=== PATIENT | male | born 1945 | race Caucasian/White ===

== ENCOUNTER 2016-09-26 05:40 | Inpatient (IN) | payer OTHER ==
[2016-09-17 11:19] VITALS: BMI 28.5
[2016-09-26] MEDS ORDERED: NITROGLYCERIN 50 MG/10 ML VIAL IVPB ONE (06:53)
[2016-09-26] MEDS ORDERED: PROPOFOL 20 ML ONE ×3 (07:11→10:43)
[2016-09-26] MEDS ORDERED: PHENYLEPHRINE HCL 10 MG/1 ML SINGLE DOSE VIAL ONE ×2 (07:11→09:11)
[2016-09-26] MEDS ORDERED: ROCURONIUM BROMIDE 50 MG/5 ML VIAL ONE ×3 (07:11→13:05)
[2016-09-26] MEDS ORDERED: ceFAZolin SODIUM 1 GM VIAL ONE ×2 (07:19→16:41)
--- NOTE | 2016-09-26 07:33 | HP ---
History & Physical Update - History History: No Change (Complete HPI is in patient's paper chart by Dr. Luke Ace on 09/17/16.) - Physical Physical: No Change - Assessment Assessment: No Change - Plan Plan: No Change (Here today for elective repair of his AAA (open repair). This is my first time meeting the patient. I informed him that I will be assisting Dr. Bello for the procedure today. Patient is fine with it.)
--- NOTE | 2016-09-26 07:39 | HP ---
Admitting History and Physical - Primary Care Physician PCP: Luke Ace - Admission Chief Complaint: Abdomian aortic aneurysm History of Present Illness: Here today for elective repair of his abdominal aortic aneurysm (open repair planned). History Source: Patient Limitations to Obtaining History: No Limitations - Past Medical History Cardiovascular: Yes: CAD Pulmonary: Yes: COPD Gastrointestinal: Yes: Gastritis Renal/: Yes: Other (Satge 2 CKD, essential HTN) Additional Past Medical History: Hyperlipidemia, Left ankle fracture - Past Surgical History Past Surgical History: Yes: AAA Repair, Amputation Additional Past Surgical History: Right common illiac stent. Traumatic severance of fingers. - Smoking History Smoking history: Current every day smoker Have you smoked in the past 12 months: Yes Aproximately how many cigarettes per day: 2 - Alcohol/Substance Use Hx Alcohol Use: No History of Substance Use: reports: None - Social History Usual Living Arrangement: Yes: With Spouse ADL: Independent History of Recent Travel: No <Conrad Warner - Last Filed: 09/26/16 07:33> Home Medications <Conrad Warner - Last Filed: 09/26/16 07:33> <Alvarez Bello - Last Filed: 09/26/16 16:29> - Allergies Allergies/Adverse Reactions: Allergies Allergy/AdvReac Type Severity Reaction Status Date / Time No Known Drug Allergies Allergy Verified 09/26/16 07:44 BEES Allergy Uncoded 09/26/16 07:44 - Home Medications Home Medications: Ambulatory Orders Clopidogrel Bisulfate [Plavix -] 75 mg PO DAILY #30 tablet 04/07/12 Levothyroxine [Synthroid -] 137 mcg PO ASDIR #0 tablet 04/07/12 Levothyroxine [Synthroid -] 150 mcg PO DAILY #30 tablet 04/07/12 Nebivolol HCl [Bystolic] 5 mg NR DAILY #30 tablet 04/07/12 Lansoprazole [Prevacid] 30 mg PO PRN PRN 04/22/12 Rosuvastatin Calcium [Crestor] 20 mg PO DAILY 04/22/12 Aspirin [ASA -] 81 mg PO DAILY 09/17/16 Review of Systems - Review of Systems Constitutional: reports: No Symptoms Eyes: reports: No Symptoms HENT: reports: No Symptoms Neck: reports: No Symptoms Cardiovascular: reports: No Symptoms Respiratory: reports: No Symptoms Gastrointestinal: reports: No Symptoms Genitourinary: reports: No Symptoms Breasts: reports: No Symptoms Reported Musculoskeletal: reports: No Symptoms Integumentary: reports: No Symptoms Neurological: reports: No Symptoms Endocrine: reports: No Symptoms Hematology/Lymphatic: reports: No Symptoms Psychiatric: reports: No Symptoms <Conrad Warner P - Last Filed: 09/26/16 07:33> Physical Examination Vital Signs: Vital Signs Temperature 97.9 F 09/26/16 07:15 Pulse Rate 61 09/26/16 07:15 Respiratory Rate 18 09/26/16 07:15 Blood Pressure 130/56 09/26/16 07:15 O2 Sat by Pulse Oximetry (%) 94 L 09/26/16 07:21 Constitutional: Yes: Well Nourished, No Distress, Calm Eyes: Yes: WNL, Conjunctiva Clear, EOM Intact HENT: Yes: WNL, Atraumatic, Normocephalic Neck: Yes: WNL, Supple, Trachea Midline Cardiovascular: Yes: WNL, Regular Rate and Rhythm Respiratory: Yes: WNL, Regular, CTA Bilaterally Gastrointestinal: Yes: WNL, Normal Bowel Sounds, Soft ...Rectal Exam: Yes: WNL Renal/: Yes: WNL Musculoskeletal: Yes: WNL Extremities: Yes: WNL Edema: No Peripheral Pulses WNL: Yes Integumentary: Yes: WNL Neurological: Yes: WNL, Alert, Oriented ...Motor Strength: WNL Psychiatric: Yes: WNL, Alert, Oriented <Conrad Warner P - Last Filed: 09/26/16 07:33> Vital Signs: Vital Signs Temperature 97.9 F 09/26/16 07:15 Pulse Rate 61 09/26/16 07:15 Respiratory Rate 18 09/26/16 07:15 Blood Pressure 130/56 09/26/16 07:15 O2 Sat by Pulse Oximetry (%) 94 L 09/26/16 07:21 Labs: CBC, BMP 09/26/16 14:15 09/26/16 14:15 <Alvarez Bello - Last Filed: 09/26/16 16:29> Problem List - Problems (1) Abdominal aortic aneurysm Assessment/Plan: Going for open repair today Pre-op antibiotics ordered Type and screen 4 PRBC on hold for OR Cell Saver confirmed Code(s): I71.4 - ABDOMINAL AORTIC ANEURYSM, WITHOUT RUPTURE (2) Chronic kidney disease, stage 2 (mild) Code(s): N18.2 - CHRONIC KIDNEY DISEASE, STAGE 2 (MILD) (3) COPD (chronic obstructive pulmonary disease) Code(s): J44.9 - CHRONIC OBSTRUCTIVE PULMONARY DISEASE, UNSPECIFIED (4) Essential (primary) hypertension Code(s): I10 - ESSENTIAL (PRIMARY) HYPERTENSION <Conrad Warner - Last Filed: 09/26/16 07:33> Assessment/Plan 71 year old man with 6 cm AAA arising at level of renal arteries. 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 Evaluation for fenestrated endograft but not a candidate due to iliac occlusion. Plan for open repair with left femoral bypass. <Alvarez Bello - Last Filed: 09/26/16 16:29>
[2016-09-26] MEDS ORDERED: NITROPRUSSIDE SODIUM 50,000 MCG in SODIUM CHLORIDE 248 ML IVPB SCH (07:45)
[2016-09-26] MEDS ORDERED: CEFAZOLIN 2 GM in DEXTROSE 5%-WATER - 100 ML IVPB ONE (07:54)
[2016-09-26] MEDS ORDERED: ePHEDrine SULFATE 50 MG/1 ML AMPULE ONE (09:03)
[2016-09-26] MEDS ORDERED: ceFAZolin SODIUM 1 GM VIAL IVPB ONE ×2 (09:18)
[2016-09-26] MEDS ORDERED: DESFLURANE GAS 240 ML BOTTLE IH ONE (09:38)
[2016-09-26] MEDS ORDERED: HEPARIN NA (PORCINE) 5,000 UNITS/ML 1ML VIAL ONE (10:07)
[2016-09-26] MEDS ORDERED: HYDROmorphone HCL/PF 1 MG/ML VIAL (FOR PYXIS CHARGING ONLY) ONE ×3 (10:28→13:11)
[2016-09-26] MEDS ORDERED: METOPROLOL TARTRATE 5 MG/5 ML VIAL ONE (10:41)
[2016-09-26] MEDS ORDERED: LABETALOL HCL 5 MG/1 ML (100MG/20 ML VIAL) ONE (11:25)
[2016-09-26] MEDS ORDERED: NOREPINEPHRINE BITARTRATE 4 MG/4 ML ML IV ONE ×2 (12:33→21:06)
[2016-09-26 14:24] LABS: ARTERIAL BLOOD GAS BASE EXCESS -13.9 meq/l (-2-2); ARTERIAL BLOOD GAS HCO3 20.5 meq/L (22-26)
[2016-09-26] MEDS ORDERED: CALCIUM CHLORIDE 1 GM/10 ML *DISP.SYRIN ONE ×2 (14:24→19:31)
[2016-09-26 14:28] LABS: LPM/O2% 100%; PT. ON O2? YES; TYPE OF O2 MEC.VENT
[2016-09-26] MEDS ORDERED: SODIUM BICARBONATE 8.4% - 50 ML ONE ×2 (14:30→19:31)
[2016-09-26] MEDS ORDERED: DEXAMETHASONE SOD PHOSPHATE 4 MG/1 ML VIAL ONE (14:41)
[2016-09-26] MEDS ORDERED: PROPOFOL 100 ML ONE (14:50)
[2016-09-26] MEDS ORDERED: PROPOFOL 1000 MG/100 ML VIAL IVPB ONE (15:10)
[2016-09-26] MEDS ORDERED: LEVOTHYROXINE NA 150 MCG TABLET PO SCH (15:15)
[2016-09-26 15:21] LABS: MCH 30.2 pg (25.7-33.7); MCHC 31.7 g/dl (32.0-35.9); MEAN CELL VOLUME 95.3 fl (80-96); MEAN PLT VOLUME 10.4 fl (7.5-11.1); PLATELET COUNT 107 K/MM3 (134-434); RDW 14.1 % (11.9-15.9); WHITE BLOOD COUNT 24.8 K/mm3 (4.0-10.0)
[2016-09-26] MEDS ORDERED: LACTATED RINGERS SOLUTION 1,000 ML IV SCH (15:30)
[2016-09-26 15:43] LABS: ALBUMIN 1.9 g/dl (3.4-5.0); BILIRUBIN,TOTAL 0.1 mg/dL (0.2-1.0); COCKROFT - GAULT 46.65; CREATININE 1.9 mg/dL (0.7-1.3); TOT PROT 4.3 g/dl (6.4-8.2)
[2016-09-26 16:06] LABS: METAMYELOCYTE 1 % (0-2); PLATELET ESTIMATE DECREASED (NORMAL)
--- NOTE | 2016-09-26 16:26 | OP ---
Operative Note - Note: Operative Date: 09/26/16 Pre-Operative Diagnosis: Abdominal aortic aneurysm, left iliac artery occlusion Operation: Open repairir of juxtarenal abdominal aortic aneurysm, left femoral bypass, right iliac bypass. Findings: Juxtarenal AAA 6 cm. Small right renal artery. Implants: 20 mm x 10 mm Hemashield graft Post-Operative Diagnosis: Same as Pre-op Surgeon: Alvarez Bello Rehabilitation Director: Tavo Parks Anesthesiologist/SOFTWARE BUSINESS ANALYST: Aroldo Maki Anesthesia: General Specimens Removed: Aneurysm contents Estimated Blood Loss (mls): 4,000 Blood Volume Replaced (mls): 5,000 Operative Report Dictated: Yes
[2016-09-26 16:30] LABS: ARTERIAL BLD GAS O2 SATURATION 90.8 % (90-98.9); ARTERIAL BLOOD GAS BASE EXCESS -14.4 meq/l (-2-2); ARTERIAL BLOOD GAS HCO3 20.2 meq/L (22-26); ARTERIAL BLOOD GAS PO2 81.1 mmHg (70-100)
[2016-09-26 16:33] LABS: ARTERIAL BLOOD GAS pH 7.01 (7.35-7.45)
[2016-09-26 16:34] LABS: ART PUNCT SITE ARTERIAL LINE; LPM/O2% 60%; MECH. VENT. YES; PT. ON O2? YES; TYPE OF O2 MEC.VENT; VENT RATE 12; VT/PRESS 500
--- NOTE | 2016-09-26 16:53 | CON.CARD ---
Consult Consult Specialty:: Cardiology Referred by:: Luke Ace MD Reason for Consultation:: Labile hemodynamics post-op - History of Present Illness Chief Complaint: Labile BP post-op History of Present Illness: 71 yo WM h/o 6 cm AAA and left iliac artery occlusion unamenable to endovascular repair, CAD s/p NAIF LAD, chol, tobacco abuse, CKD, HTN, COPD, underwent open repair of juxtarenal abdominal aortic aneurysm, left femoral bypass, right iliac bypass, both during and post-op, patient experienced extremely labile blood pressures alternating from hypertension to hypotension, received 2 U pRBC and cell saver blood, currently mechanically ventilated, ABG shows significant respiratory acidosis, hemodynamics improving with increased ventilation rate. - History Source History Provided By: Medical Record Limitations to Obtaining History: Clinical Condition - Past Medical History Cardio/Vascular: Yes: CAD Pulmonary: Yes: COPD Gastrointestinal: Yes: Gastritis Renal/: Yes: Other (Satge 2 CKD, essential HTN) - Past Surgical History Past Surgical History: Yes: AAA Repair, Amputation - Alcohol/Substance Use Hx Alcohol Use: No History of Substance Use: reports: None - Smoking History Smoking history: Current every day smoker Have you smoked in the past 12 months: Yes Aproximately how many cigarettes per day: 2 - Social History ADL: Independent History of Recent Travel: No Home Medications - Allergies Allergies/Adverse Reactions: Allergies Allergy/AdvReac Type Severity Reaction Status Date / Time No Known Drug Allergies Allergy Verified 09/26/16 07:44 BEES Allergy Uncoded 09/26/16 07:44 - Home Medications Home Medications: Ambulatory Orders Clopidogrel Bisulfate [Plavix -] 75 mg PO DAILY #30 tablet 04/07/12 Levothyroxine [Synthroid -] 137 mcg PO ASDIR #0 tablet 04/07/12 Levothyroxine [Synthroid -] 150 mcg PO DAILY #30 tablet 04/07/12 Nebivolol HCl [Bystolic] 5 mg NR DAILY #30 tablet 04/07/12 Lansoprazole [Prevacid] 30 mg PO PRN PRN 04/22/12 Rosuvastatin Calcium [Crestor] 20 mg PO DAILY 04/22/12 Aspirin [ASA -] 81 mg PO DAILY 09/17/16 Review of Systems Unable to obtain ROS, reason: Sedated and intubated Vital Signs: Vital Signs Temperature 97.9 F 09/26/16 07:15 Pulse Rate 61 09/26/16 07:15 Respiratory Rate 12 09/26/16 16:43 Blood Pressure 130/56 09/26/16 07:15 O2 Sat by Pulse Oximetry (%) 94 L 09/26/16 07:21 Respiratory: Yes: Diminished, Intubated, Mechanically Ventilated, Rhonchi Gastrointestinal: Yes: Soft, Hypoactive Bowel Sounds Cardiovascular: Yes: Regular Rate and Rhythm JVD: No Carotid Bruit: No Heart Sounds: Yes: S1, S2 Murmur: Yes: Systolic Murmur, Grade 1 Edema: No - Other Data Labs, Other Data: CBC, BMP 09/26/16 14:15 09/26/16 14:15 NSR @ 62 RBBB similar to previous Echo: Report Reviewed Imaging - Results Chest X-ray: Report Reviewed (COPD) Problem List - Problems (1) Abdominal aortic aneurysm Code(s): I71.4 - ABDOMINAL AORTIC ANEURYSM, WITHOUT RUPTURE Qualifiers: Presence of rupture: without rupture Qualified Code(s): I71.4 - Abdominal aortic aneurysm, without rupture (2) COPD (chronic obstructive pulmonary disease) Code(s): J44.9 - CHRONIC OBSTRUCTIVE PULMONARY DISEASE, UNSPECIFIED Qualifiers : COPD type: unspecified COPD Qualified Code(s): J44.9 - Chronic obstructive pulmonary disease, unspecified (3) Chronic kidney disease, stage 2 (mild) Code(s): N18.2 - CHRONIC KIDNEY DISEASE, STAGE 2 (MILD) (4) Acute hypercapnic respiratory failure Code(s): J96.02 - ACUTE RESPIRATORY FAILURE WITH HYPERCAPNIA (5) Coronary artery disease Code(s): I25.10 - ATHSCL HEART DISEASE OF [place] CORONARY ARTERY W/O ANG PCTRS Qualifiers: Coronary Disease-Associated Artery/Lesion type: [place] artery [place] vs. transplanted heart: [place] heart Associated angina: without angina Qualified Code(s): I25.10 - Atherosclerotic heart disease of [place] coronary artery without angina pectoris (6) Status post insertion of drug eluting coronary artery stent Code(s): Z95.5 - PRESENCE OF CORONARY ANGIOPLASTY IMPLANT AND GRAFT (7) Hyperlipidemia LDL goal <100 Code(s): E78.5 - HYPERLIPIDEMIA, UNSPECIFIED (8) Hypothyroidism Code(s): E03.9 - HYPOTHYROIDISM, UNSPECIFIED Qualifiers: Hypothyroidism type: unspecified Qualified Code(s): E03.9 - Hypothyroidism, unspecified (9) S/P aortic aneurysm repair Code(s): Z98.890 - OTHER SPECIFIED POSTPROCEDURAL STATES Z86.79 - PERSONAL HISTORY OF OTHER DISEASES OF THE CIRCULATORY SYSTEM Assessment/Plan 08/16/2016 Echo: Normal LV size and fxn, mild cLVH, mild MR 08/21/2016 Regadenoson Myoview: Small mild inferior ischemia, LVEF 80% 1. Hypercapneic respiratory failure post-op 2. s/p open repair of 6 cm juxtarenal abdominal aortic aneurysm, left femoral bypass, right iliac bypass. 3. CAD s/p NAIF LAD, angina pectoris 4. COPD 5. CKD 6. HTN 7. Hyperlipidemia P:1. Adjust vent rate per ABG 2. Cycle cardiac enzymes, monitor renal function and output, monitor Hgb post transfusion 3. Echocardiogram to assess ventricular and valve fxn 4. Volume resuscitation given CVP 6 mmHg 5. ASA 81 qd, Plavix 75 qd, GI and DVT prophylaxis 5. Thank you for consultative opportunity
[2016-09-26] MEDS ORDERED: VASOPRESSIN 20 UNITS/ML VIAL IV ONE ×2 (16:59→17:01)
--- NOTE | 2016-09-26 17:58 | PN ---
Progress Note (short form) - Note Progress Note: PULMONARY CONSULTATION DICTATED 09/26/16 IMP ACUTE HYPERCAPNEIC RESPIRATORY FAILURE S/P OPEN AAA REPAIR S/P OPEN AAA,LEFT FEMORAL BYPASS,R ILIAC BYPASS LABILE BP HYPOTENSION ALT WITH HTN COPD ASHD S/P NAIF LAD DM CKD PLAN VENT SUPPORT ON AC ADJUST SETTING PER ABG IVF MONITOR URINE OUTPUT STRICT I+OS F/U LYTES,RENAL FUNCTION,H+H F/U CHEST X-RAY DVT PROPHYLAXIS ECHO CARDIAC ENZYMES DR ALLISON Problem List - Problems (1) Abdominal aortic aneurysm Code(s): I71.4 - ABDOMINAL AORTIC ANEURYSM, WITHOUT RUPTURE Qualifiers: Presence of rupture: without rupture Qualified Code(s): I71.4 - Abdominal aortic aneurysm, without rupture (2) Acute hypercapnic respiratory failure Code(s): J96.02 - ACUTE RESPIRATORY FAILURE WITH HYPERCAPNIA (3) COPD (chronic obstructive pulmonary disease) Code(s): J44.9 - CHRONIC OBSTRUCTIVE PULMONARY DISEASE, UNSPECIFIED Qualifiers : COPD type: unspecified COPD Qualified Code(s): J44.9 - Chronic obstructive pulmonary disease, unspecified (4) Chronic kidney disease, stage 2 (mild) Code(s): N18.2 - CHRONIC KIDNEY DISEASE, STAGE 2 (MILD) (5) Coronary artery disease Code(s): I25.10 - ATHSCL HEART DISEASE OF [place] CORONARY ARTERY W/O ANG PCTRS Qualifiers: Coronary Disease-Associated Artery/Lesion type: [place] artery [place] vs. transplanted heart: [place] heart Associated angina: without angina Qualified Code(s): I25.10 - Atherosclerotic heart disease of [place] coronary artery without angina pectoris (6) Essential (primary) hypertension Code(s): I10 - ESSENTIAL (PRIMARY) HYPERTENSION (7) Labile blood pressure Code(s): R09.89 - OTH SYMPTOMS AND SIGNS INVOLVING THE CIRC AND RESP SYSTEMS (8) Hypothyroidism Code(s): E03.9 - HYPOTHYROIDISM, UNSPECIFIED Qualifiers: Hypothyroidism type: unspecified Qualified Code(s): E03.9 - Hypothyroidism, unspecified (9) S/P aortic aneurysm repair Code(s): Z98.890 - OTHER SPECIFIED POSTPROCEDURAL STATES Z86.79 - PERSONAL HISTORY OF OTHER DISEASES OF THE CIRCULATORY SYSTEM (10) Status post insertion of drug eluting coronary artery stent Code(s): Z95.5 - PRESENCE OF CORONARY ANGIOPLASTY IMPLANT AND GRAFT
[2016-09-26 18:00] LABS: ARTERIAL BLD GAS O2 SATURATION 96.2 % (90-98.9)
[2016-09-26] MEDS ORDERED: CEFAZOLIN 2 GM/D5W 50 ML IVPB SCH (18:00)
[2016-09-26 18:02] LABS: ART PUNCT SITE ARTERIAL LINE; LPM/O2% 60%; MECH. VENT. YES; PT. ON O2? YES; TYPE OF O2 MEC.VENT
[2016-09-26 18:03] LABS: ARTERIAL BLOOD GAS pH 7.09 (7.35-7.45); VENT RATE 20; VT/PRESS 550
[2016-09-26] MEDS ORDERED: HYDROmorphone HCL CARPU-JECT 1 MG/1 ML DISP.SYRIN ONE (18:32)
--- NOTE | 2016-09-26 18:46 | PN ---
Progress Note (short form) - Note Progress Note: Anesthesiology Procedure Note Arterial line placement: The left wrist was prepped with chloraprep, a strong pulse was palpated, lidocaine 1% was injected for skin analgesia. Two attempts at canulating radial artery failed. Ultrasound was used to locate artery. left radial artery canulated using Seldinger technique, , waveform adequate, no comprise to blood flow noted.
[2016-09-26 18:48] LABS: MCHC 31.8 g/dl (32.0-35.9); MEAN CELL VOLUME 94.2 fl (80-96); MEAN PLT VOLUME 9.5 fl (7.5-11.1); PLATELET COUNT 95 K/MM3 (134-434); RDW 14.6 % (11.9-15.9); WHITE BLOOD COUNT 23.8 K/mm3 (4.0-10.0)
--- NOTE | 2016-09-26 18:58 | PROC ---
Central Line Insertion Indication: CVP Monitoring, Vasopressor Risks and Benefits Explained: Yes Consent on Chart: Yes Central Line: Triple Lumen Catheter Anesthesia: other (general anesthesia) Sterile Technique: Yes Ultrasound Guided Assistance: Yes Position: Right Internal Jugular Post Insertion: Yes: Bilateral Breath Sounds, Bilateral Chest Expansion, Chest X-Ray Ordered (in PACU post op) Sterile Dressing Applied: Yes
[2016-09-26] MEDS ORDERED: PROPOFOL 100 ML IVPB SCH (19:00)
[2016-09-26 19:07] LABS: INR 1.28 (0.82-1.09); PROTHROMBIN TIME (PATIENT) 14.2 SEC (9.98-11.88)
[2016-09-26 19:23] LABS: COCKROFT - GAULT 44.31
[2016-09-26 19:25] LABS: ARTERIAL BLOOD GAS BASE EXCESS -14.3 meq/l (-2-2); ARTERIAL BLOOD GAS HCO3 16.9 meq/L (22-26); ARTERIAL BLOOD GAS PO2 89.7 mmHg (70-100); ARTERIAL BLOOD GAS pH 7.09 (7.35-7.45)
[2016-09-26 19:27] LABS: ART PUNCT SITE ARTERIAL LINE; LPM/O2% 60; PT. ON O2? yes; TYPE OF O2 MEC.VENT; VENT RATE 24; VT/PRESS 500
[2016-09-26] MEDS ORDERED: DEXTROSE 50%-WATER 50 ML DISP.SYRIN ONE (19:33)
[2016-09-26] MEDS ORDERED: INSULIN REGULAR HUMAN 100 UNITS/ML *VIAL ONE (19:34)
[2016-09-26] MEDS ORDERED: DEXTROSE 5%-WATER - 1,000 ML with SODIUM BICARBONATE 8.4% - 150 MEQ IV SCH (19:45)
[2016-09-26 19:52] LABS: MECH. VENT. YES
[2016-09-26 20:44] LABS: ARTERIAL BLD GAS O2 SATURATION 96.2 % (90-98.9); ARTERIAL BLOOD GAS PO2 95.3 mmHg (70-100)
[2016-09-26 20:45] LABS: ALLENS TEST POSITIVE; ART PUNCT SITE ARTERIAL LINE; ARTERIAL BLOOD GAS HCO3 13.4 meq/L (22-26); ARTERIAL BLOOD GAS pH 7.11 (7.35-7.45); LPM/O2% 60%; MECH. VENT. YES; PT. ON O2? YES; TYPE OF O2 MECH VENT; VENT RATE 26; VT/PRESS 500
[2016-09-26] MEDS ORDERED: VASOPRESSIN 40 UNITS in SODIUM CHLORIDE 98 ML IVPB SCH (21:00)
[2016-09-26] MEDS ORDERED: SODIUM CHLORIDE 1,000 ML IV STA ×2 (21:07→22:15)
--- NOTE | 2016-09-26 21:07 | CONS ---
DATE OF CONSULTATION: 09/26/2016 REFERRING PHYSICIAN: Alvarez Bello MD The patient is a 71-year-old white male known to me from previous office visit, with advanced COPD, long-standing history of tobacco use, currently still smoking approximately 1 pack per day, history of chronic kidney disease stage 2, hypertension, history of ASHD, status post drug-eluting stent in LAD, hypercholesterolemia, history of abdominal aortic aneurysm, history of admission in [facility] for repair of abdominal aortic aneurysm. The patient underwent an open repair with juxtarenal abdominal aortic aneurysm, left femoral bypass, right iliac bypass. Intraoperatively and postoperatively, the patient experienced extremely labile high blood pressure severe hypertension to hypotension. In the OR, he received 2 units of packed red blood cells as well as Cell Saver blood. He was transferred to the recovery room with the above. In the recovery room, his blood pressure remained initially labile. He was initially started on IV fluid, started on nitroglycerin. The patient had a blood gas drawn, which revealed significant mixed respiratory as well as metabolic acidosis, with a pH of 7.0. Again, the patient has a history of tobacco use and currently still smokes. He is retired. 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 There is no history of recent travel. There is no history of DVT or PE in the past. Past medical history again includes COPD, ASHD, status post drug-eluting stent in the LAD, hypertension, diabetes mellitus, stage 2 chronic kidney disease, history of AAA repair, amputation. REVIEW OF SYSTEMS: Unable to obtain at this time. Current medications include normal saline and . PHYSICAL EXAMINATION: General: The patient is a well-developed well-nourished male, sedated, on vent support, assist control of 20, tidal volume of 515, FiO2 of 60%. Blood pressure 143/75. Respiratory rate is 20. O2 saturation is 99%. HEENT: Normocephalic, atraumatic. Neck: Supple. Heart: Regular. Normal S1, S2. Chest: Clear. Abdomen: Bandaged. Extremities: Cool but no cyanosis or edema. LABORATORIES: Potassium is 5.7, BUN 18, creatinine 1.9, protein 4.3, albumin 1.9. INR is 1.12. Blood gas, initial: pH 7.00, pCO2 of 87, pO2 of 354, bicarbonate 20, saturation 99 (that was 100% oxygen, unknown vent settings). Repeat on tidal volume of 500, A/C of 12, 60%, pH 7.01, pCO2 of 83, a pO2 of 81, a bicarbonate of 90, and again was on A/C of 12, 60%, tidal volume 500. WBC is 24.8, hemoglobin 14.6, hematocrit 46.1, with platelet count of 107,000. Chest x-ray revealed endotracheal tube 5 to 6 cm above the level of the tracheal bifurcation; no infiltrates and no effusions. IMPRESSION: 1. Acute hypercapnic respiratory failure, status post open abdominal aortic aneurysm repair. 2. Status post open repair of 6-cm juxtarenal abdominal aortic aneurysm, left femoral bypass, and right iliac bypass. 3. Labile hypotension postoperatively. 4. Arteriosclerotic heart disease, status post drug-eluting stent to left anterior descending artery. 5. Advanced chronic obstructive pulmonary disease. 6. Mixed metabolic respiratory acidosis. 7. Chronic kidney disease. PLAN: Vent support on assist control mode; change tidal volume to 550, respiratory rate of 20, FiO2 60%. Repeat ABG and can then make adjustments accordingly. IV fluids. Monitor blood pressures. Strictly monitor urine output. Monitor hemoglobin and hematocrit. Follow up chest x-ray. Obtain echocardiogram. DVT prophylaxis. JEN ALLISON M.D. ANABEL/[id number]
[2016-09-26] MEDS ORDERED: CALCIUM CHLORIDE 1 GM/10 ML *DISP.SYRIN IVPB ONE (21:10)
[2016-09-26] MEDS ORDERED: INSULIN REGULAR HUMAN 100 UNITS/ML *VIAL IVPUSH ONE (21:11)
[2016-09-26] MEDS ORDERED: DEXTROSE 50%-WATER 50 ML DISP.SYRIN IVPUSH ONE (21:13)
[2016-09-26] MEDS ORDERED: FENTANYL INJECTION 500 MCG in DEXTROSE 5%-WATER - 90 ML IJ SCH (21:15)
[2016-09-26] MEDS ORDERED: NOREPINEPHRINE BITARTRATE 8,000 MCG in DEXTROSE 5%-WATER - 492 ML IV SCH (21:15)
[2016-09-26] MEDS ORDERED: NITROGLYCERIN 25MG/D5W 250ML 250 ML IVPB SCH (21:15)
[2016-09-26 21:50] LABS: CALCIUM 8.1 mg/dL (8.5-10.1); COCKROFT - GAULT 40.29; CREATININE 2.2 mg/dL (0.7-1.3)
[2016-09-26 21:53] LABS: ALLENS TEST POSITIVE; ART PUNCT SITE ARTERIAL LINE; ARTERIAL BLD GAS O2 SATURATION 97.1 % (90-98.9); ARTERIAL BLOOD GAS BASE EXCESS -10.4 meq/l (-2-2); ARTERIAL BLOOD GAS PO2 96.7 mmHg (70-100); LPM/O2% 60%; PT. ON O2? YES; TYPE OF O2 MECH VENT
[2016-09-26 21:54] LABS: ARTERIAL BLOOD GAS HCO3 18.9 meq/L (22-26); ARTERIAL BLOOD GAS pH 7.17 (7.35-7.45); MECH. VENT. YES; VENT RATE 30; VT/PRESS 500
--- NOTE | 2016-09-26 21:58 | CONSULT ---
Consult Consult Specialty:: Pulm/CCM Reason for Consultation:: Post-op AAA repair c/b severe respiratory and metabolic acidosis and labile BP - History of Present Illness Chief Complaint: Unstable BP History of Present Illness: 71yom with PMHX HTn, COPD (bullous emphysema), CAD s/p NAIF, HLD admitted for elective repair of 6cm juxtarenal AAA who was transferred to the ICU s/p open AAA repair with left femoral and rt iliac artery bypass c/b severe respiratory and metabolic acidosis, hyperkalemia, HELLEN and labile BP requiring titrations of both levophed and Nitroglycerin drips. - History Source History Provided By: Medical Record - Past Medical History Cardio/Vascular: Yes: CAD Pulmonary: Yes: COPD Gastrointestinal: Yes: Gastritis Renal/: Yes: Other (Satge 2 CKD, essential HTN) - Past Surgical History Past Surgical History: Yes: AAA Repair, Amputation - Alcohol/Substance Use Hx Alcohol Use: No History of Substance Use: reports: None - Smoking History Smoking history: Current every day smoker Have you smoked in the past 12 months: Yes Aproximately how many cigarettes per day: 2 - Social History ADL: Independent History of Recent Travel: No Home Medications - Allergies Allergies/Adverse Reactions: Allergies Allergy/AdvReac Type Severity Reaction Status Date / Time No Known Drug Allergies Allergy Verified 09/26/16 07:44 BEES Allergy Uncoded 09/26/16 07:44 - Home Medications Home Medications: Ambulatory Orders Clopidogrel Bisulfate [Plavix -] 75 mg PO DAILY #30 tablet 04/07/12 Levothyroxine [Synthroid -] 137 mcg PO ASDIR #0 tablet 04/07/12 Levothyroxine [Synthroid -] 150 mcg PO DAILY #30 tablet 04/07/12 Nebivolol HCl [Bystolic] 5 mg NR DAILY #30 tablet 04/07/12 Lansoprazole [Prevacid] 30 mg PO PRN PRN 04/22/12 Rosuvastatin Calcium [Crestor] 20 mg PO DAILY 04/22/12 Aspirin [ASA -] 81 mg PO DAILY 09/17/16 Family Disease History - Family Disease History Family History: Unremarkable Review of Systems Unable to obtain ROS, reason: intubated and sedated Physical Exam Vital Signs: Vital Signs Temperature 97.1 F L 09/26/16 20:26 Pulse Rate 52 L 09/26/16 20:26 Respiratory Rate 26 H 09/26/16 20:50 Blood Pressure 207/101 09/26/16 20:26 O2 Sat by Pulse Oximetry (%) 99 09/26/16 18:10 Constitutional: Yes: Calm, Pallor Eyes: Yes: PERRL, Other (Pupils pinpoint, scleral edema) HENT: Yes: WNL Neck: Yes: Trachea Midline Cardiovascular: Yes: Regular Rate and Rhythm Respiratory: Yes: Mechanically Ventilated Gastrointestinal: Yes: Distention (distended, firm), Hypoactive Bowel Sounds ( midline abd incision with dressing dry and intact) Renal/: Yes: Lundy Present (urine clear) Edema: No Peripheral Pulses WNL: Yes (by doppler) Wound/Incision: Yes: Dressing Dry and Intact Neurological: Yes: Other (Sedated, RASS-4) Labs: CBC, BMP 09/26/16 18:15 CBCD WBC 25.1 K/mm3 (4.0-10.0) H 09/26/16 21:50 RBC 5.18 M/mm3 (4.00-5.60) 09/26/16 21:50 Hgb 15.5 GM/dL (11.7-16.9) 09/26/16 21:50 Hct 48.2 % (35.4-49) 09/26/16 21:50 MCV 93.0 fl (80-96) 09/26/16 21:50 MCHC 32.1 g/dl (32.0-35.9) 09/26/16 21:50 RDW 14.8 % (11.9-15.9) 09/26/16 21:50 Plt Count 95 K/MM3 (134-434) L 09/26/16 21:50 MPV 9.2 fl (7.5-11.1) 09/26/16 21:50 CMP Sodium 142 mmol/L (136-145) 09/26/16 20:15 Potassium 5.5 mmol/L (3.5-5.1) H 09/26/16 20:15 Chloride 114 mmol/L (98-107) H 09/26/16 20:15 Carbon Dioxide 19 mmol/L (21-32) L 09/26/16 20:15 Anion Gap 9 (8-16) 09/26/16 20:15 BUN 22 mg/dL (7-18) H 09/26/16 20:15 Creatinine 2.2 mg/dL (0.7-1.3) H 09/26/16 20:15 Creat Clearance w eGFR 34.92 (>60) 09/26/16 14:15 Calcium 8.1 mg/dL (8.5-10.1) L 09/26/16 20:15 Total Bilirubin 0.1 mg/dL (0.2-1.0) L D 09/26/16 14:15 AST 22 U/L (15-37) 09/26/16 14:15 ALT 18 U/L (12-78) 09/26/16 14:15 Alkaline Phosphatase 51 U/L (45-117) D 09/26/16 14:15 Total Protein 4.3 g/dl (6.4-8.2) L D 09/26/16 14:15 Albumin 1.9 g/dl (3.4-5.0) L D 09/26/16 14:15 Active Medications Generic Name Dose Route Start Last Admin Trade Name Freq PRN Reason Stop Dose Admin Aspirin 81 mg 09/27/16 10:00 Asa - PO DAILY [facility] Clopidogrel Bisulfate 75 mg 09/27/16 10:00 Plavix - PO DAILY [facility] Enoxaparin Sodium 40 mg 09/27/16 10:00 Lovenox - SQ DAILY [facility] Hydromorphone HCl 0.5 mg 09/26/16 19:02 Dilaudid Injection - IVPB Q4H PRN PAIN Lactated Ringer's 1,000 mls @ 125 mls/hr 09/26/16 15:30 Lactated Ringers Solution IV ASDIR TOI Propofol 100 mls @ 2.858 mls/hr 09/26/16 19:00 09/26/16 22:20 Diprivan - IVPB 2.858 mls/hr TITR TOI Administration Protocol 5 MCG/KG/MIN Sodium Bicarbonate 150 meq/ 1,150 mls @ 75 mls/hr 09/26/16 19:45 09/26/16 20:00 Dextrose IV 75 mls/hr Q15H TOI Administration Vasopressin 40 units/ Sodium 100 mls @ 5 mls/hr 09/26/16 21:00 09/26/16 22:18 Chloride IVPB Not Given ASDIR TOI Protocol 2 UNITS/HR Norepinephrine Bitartrate 8, 500 mls @ 18.75 mls/hr 09/26/16 21:15 09/26/16 20: 00 000 mcg/ Dextrose IV 18.75 mls/hr TITR TOI Administration Protocol 5 MCG/MIN Nitroglycerin/Dextrose 250 mls @ 6 mls/hr 09/26/16 21:15 09/26/16 20:00 Nitroglycerin 25mg/D5w 250ml IVPB 6 mls/hr TITR TOI Administration 10 MCG/MIN Fentanyl 500 mcg/ Dextrose 100 mls @ 10 mls/hr 09/26/16 21:15 09/26/16 20:00 IJ 09/27/16 21:14 10 mls/hr TITR TOI Administration 50 MCG/HR Cefazolin Sodium/Dextrose 50 mls @ 100 mls/hr 09/26/16 22:30 09/26/16 23:56 Ancef 2 Gm Premixed Ivpb - IVPB 09/27/16 06:59 Not Given Q8H TOI Famotidine/Sodium Chloride 50 mls @ 100 mls/hr 09/27/16 00:30 09/27/16 00:59 Pepcid 20 Mg Premixed Ivpb - IVPB 100 mls/hr BID TOI Administration Levothyroxine Sodium 150 mcg 09/27/16 07:00 Synthroid - PO DAILY@0700 TOI Vent AC/VC 30/550/60% /0 Problem List - Problems (1) Abdominal aortic aneurysm Code(s): I71.4 - ABDOMINAL AORTIC ANEURYSM, WITHOUT RUPTURE Qualifiers: Presence of rupture: without rupture Qualified Code(s): I71.4 - Abdominal aortic aneurysm, without rupture (2) Acute hypercapnic respiratory failure Code(s): J96.02 - ACUTE RESPIRATORY FAILURE WITH HYPERCAPNIA (3) COPD (chronic obstructive pulmonary disease) Code(s): J44.9 - CHRONIC OBSTRUCTIVE PULMONARY DISEASE, UNSPECIFIED Qualifiers : COPD type: unspecified COPD Qualified Code(s): J44.9 - Chronic obstructive pulmonary disease, unspecified (4) Chronic kidney disease, stage 2 (mild) Code(s): N18.2 - CHRONIC KIDNEY DISEASE, STAGE 2 (MILD) (5) Coronary artery disease Code(s): I25.10 - ATHSCL HEART DISEASE OF [place] CORONARY ARTERY W/O ANG PCTRS Qualifiers: Coronary Disease-Associated Artery/Lesion type: [place] artery [place] vs. transplanted heart: [place] heart Associated angina: without angina Qualified Code(s): I25.10 - Atherosclerotic heart disease of [place] coronary artery without angina pectoris (6) Essential (primary) hypertension Code(s): I10 - ESSENTIAL (PRIMARY) HYPERTENSION (7) Hyperlipidemia LDL goal <100 Code(s): E78.5 - HYPERLIPIDEMIA, UNSPECIFIED (8) Hypothyroidism Code(s): E03.9 - HYPOTHYROIDISM, UNSPECIFIED Qualifiers: Hypothyroidism type: unspecified Qualified Code(s): E03.9 - Hypothyroidism, unspecified Assessment/Plan 71yom with HTN, COPD, HLD, CKD who is s/p open repair of 6cm juxtarenal AAA, Left femoral and right iliac artery bypass. Post-op c/b acute on chronic hypercapnic respiratory failure compounded shock m/l hypovolemic in setting of post-op fluid shifts +/- vasodilatory/? sepsis(leukocytosis + elevated lactate) . Also with very labile BP and HELLEN. Plan:Pulm: Hypercapnic respiratory failure; Hx COPD -Adjust vent settings for ABG ph 7.3-7.4 -Sedation for vent synchrony -Aspiration precaution CV: Shock- hypovolemic+/- vasodilatory; labile BP requiring Levophed and nitro drips for BP control; CAD with NAIF -Cards consult -Fluid bolus as needed -Vasopressor to maintain MAP>60 -Nitro drip to maintain BP<140 -Monitor CVP and SVO2 -Trend lactate -trend troponin -TTE in am -Cont post -op antibiotics -[place] culture with temp spike Renal: HELLEN on CKD, mixed respiratory and metabolic acidosis; hyperkalemia s/p medical management -Monitor BMP and UOP -Adequate hydration -Lundy GI: Abd distension; risk of abd compartment syndrome -NPO for now -NGT to LWS -Check bladder pressure if worsening shock Post-op -Check LLE pulses -Rt groin and abd wd care -Monitor CBC Proph: Hep SQ Pepcid
[2016-09-26 22:31] LABS: MCH 29.9 pg (25.7-33.7); MCHC 32.1 g/dl (32.0-35.9); MEAN PLT VOLUME 9.2 fl (7.5-11.1); PLATELET COUNT 95 K/MM3 (134-434); RDW 14.8 % (11.9-15.9); WHITE BLOOD COUNT 25.1 K/mm3 (4.0-10.0)
[2016-09-26 22:44] LABS: TROPONIN I 0.57 ng/ml (0.00-0.05)
[2016-09-26 23:20] LABS: VENOUS BLOOD GAS HCO3 19.8 meq/L (19-25); VENOUS PH 7.17 (7.32-7.42)
[2016-09-26] MEDS: CEFAZOLIN 2 GM/D5W 50 ML IVPB SCH (23:56)
[2016-09-27] MEDS ORDERED: NOREPINEPHRINE BITARTRATE 4 MG/4 ML ML IV ONE (00:21)
[2016-09-27] MEDS: FAMOTIDINE 20 MG/50 ML IVPB 50 ML IVPB SCH ×3 (00:59→21:15)
[2016-09-27 05:32] LABS: ARTERIAL BLOOD GAS BASE EXCESS -5.9 meq/l (-2-2); ARTERIAL BLOOD GAS HCO3 19.8 meq/L (22-26)
[2016-09-27 05:33] LABS: ALLENS TEST POSITIVE; ART PUNCT SITE ARTERIAL LINE; LPM/O2% 60%; MECH. VENT. YES; PT. ON O2? YES; TYPE OF O2 MECH VENT; VENT RATE 30; VT/PRESS 500
[2016-09-27] MEDS ORDERED: PROPOFOL 100 ML ONE (05:41)
[2016-09-27] MEDS: CEFAZOLIN 2 GM/D5W 50 ML IVPB SCH (06:01)
[2016-09-27 06:03] LABS: MCH 30.5 pg (25.7-33.7); MCHC 33.2 g/dl (32.0-35.9); MEAN CELL VOLUME 91.8 fl (80-96); MEAN PLT VOLUME 9.2 fl (7.5-11.1); PLATELET COUNT 81 K/MM3 (134-434); RDW 14.5 % (11.9-15.9); WHITE BLOOD COUNT 15.6 K/mm3 (4.0-10.0)
[2016-09-27 06:17] LABS: INR 1.32 (0.82-1.09); PROTHROMBIN TIME (PATIENT) 14.6 SEC (9.98-11.88)
[2016-09-27 06:28] LABS: ALBUMIN 1.8 g/dl (3.4-5.0)
[2016-09-27 06:31] LABS: CREATININE 2.4 mg/dL (0.7-1.3)
[2016-09-27 06:34] LABS: ALK PHOS 41 U/L (45-117); BILIRUBIN,TOTAL 0.3 mg/dL (0.2-1.0); SGOT/AST 36 U/L (15-37); SGPT/ALT 23 U/L (12-78); TOT PROT 4.1 g/dl (6.4-8.2); TROPONIN I 0.14 ng/ml (0.00-0.05)
[2016-09-27 06:42] LABS: CALCIUM 6.9 mg/dL (8.5-10.1)
[2016-09-27 06:43] LABS: BILIRUBIN,DIRECT < 0.1 mg/dL (0.0-0.2)
--- NOTE | 2016-09-27 06:43 | PN ---
Progress Note (short form) - Note Progress Note: POD 1 Intubated, sedated Labile BP overnight treated with pressors and nitroglycerine alternatively UO 75-100 cc/hr Abd distended, dressing dry Ext: warm, pedal pulses present with doppler WBC 25K Hgb 15 Cr 2.2 Imp: S/p repair AAA with suprarenal clamp. Labile BP, acidosis slowly improving. No evidence for bleeding or cardiac failure. Rise in BUN/Cr expected with preop history of CKD. Plan: Keep intubated, fluids as needed to keep BP stable. Follow renal function.
[2016-09-27] MEDS ORDERED: LEVOTHYROXINE NA 150 MCG TABLET PO SCH (07:00)
--- NOTE | 2016-09-27 08:29 | OP ---
DATE OF OPERATION: 09/26/2016 SURGEON: Alvarez Bello MD ASSISTANTS: 1. Tavo Parks DO 2. SARKIS Ballesteros PROCEDURE: Open repair of juxtarenal abdominal aortic aneurysm with left femoral bypass and right iliac bypass. PREOPERATIVE DIAGNOSIS: Abdominal aortic aneurysm with left iliac artery occlusion. POSTOPERATIVE DIAGNOSIS: Abdominal aortic aneurysm with left iliac artery occlusion. ANESTHESIA: General. ANESTHESIOLOGIST: Aroldo Maki DO OPERATIVE FINDINGS: There was an abdominal aortic aneurysm with a diameter of approximately 6 cm, arising at the level of the renal arteries. The aneurysm contained a large amount of thrombus, which extended up to the aneurysm neck. The left renal artery was of normal caliber and was more proximal than the right. The right renal artery was smaller in caliber and there was a small accessory renal artery more distally on the aorta. 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 OPERATIVE PROCEDURE: Following routine patient identification, general anesthesia was induced. A Carla catheter was placed. The abdomen and both groins were prepped with ChloraPrep. A skin incision was made in the left groin and carried down through the subcutaneous tissues using cautery for hemostasis. The common femoral artery was exposed and carefully dissected from the inguinal ligament distally. It was encircled proximally with a vessel loop. The deep femoral and superficial femoral arteries were also secured with vessel loops. The small side branches of the artery were ligated and divided. The wound was packed with moist gauze. The peritoneal cavity was then entered through a long midline incision. Cautery was used for hemostasis. The muscle fascia was incised in the midline. The Omni retractor was employed. The small bowel was eviscerated to the right, and the retroperitoneum dissected over the aneurysm. The duodenum was mobilized away from the aneurysm and retracted to the right. The base of the mesentery was dissected and the inferior mesenteric vein was ligated between ties of silk. The renal vein was carefully mobilized. The left gonadal vein was ligated with silk and divided. The renal vein was then elevated to gain access to the neck of the aneurysm. The left renal artery was mobilized and secured with a vessel loop. The accessory renal on the right was ligated with silk ties and divided. The main right renal artery was secured with a vessel loop. The distal aorta was exposed with division of the overlying peritoneum. The right renal artery was exposed down towards the bifurcation and mobilized on either side. During dissection, a small branch off of the common iliac vein was injured and required sutures of 5-0 Prolene for control. After hemostasis was achieved, a retroperitoneal tunnel was created from the left groin incision back into the abdominal cavity and marked with umbilical tape. The patient was given 12.5 g of Mannitol and 40 mg of Lasix intravenously, and then 5000 units of heparin. The abdominal aorta was cross-clamped above the level of the renal arteries and the right iliac artery was occluded with a clamp. The aneurysm was opened and the thrombus removed. Back bleeding lumbars were controlled with suture ligatures of 3-0 Prolene. The neck of the aneurysm was inspected, and it was felt that the graft could be sewn just distal to the renal arteries. A 20 x 10-mm Hemashield graft was chosen. The proximal end was trimmed and then anastomosed end-to-end to the abdominal aorta using running sutures of 3-0 Prolene. Back bleeding from the renal arteries was checked and the suture line was completed. The proximal clamp was removed and moved down onto the graft. Cross-clamp time was approximately 35 minutes. Evaluation with the Doppler revealed pulsatile flow in both renal arteries. The right graft limb was then extended down into the pelvis. The common iliac artery was opened longitudinally and then the graft trimmed for length. Back bleeding from the iliac was checked and the artery was flushed with heparin solution. An end-to-end anastomosis was created using running suture of 3-0 Prolene. Prior to completion of the suture line, the iliac was allowed to back bleed and the right limb was flushed after occluding the left limb with a clamp. The suture line was completed, and the clamps were removed. There was a good pulse in the graft down into the iliac artery and a palpable femoral pulse. Bleeding from the suture lines was controlled with Surgicel. The left limb of the graft was then passed through the retroperitoneal tunnel to lie in the left groin. The femoral artery was occluded with a clamp and vessel loops and opened with a longitudinal arteriotomy. Endarterectomy of the artery was required for the removal of plaque. The distal plaque was tacked with sutures of 5-0 Prolene. This was done to prevent dissection. The end of the graft was then beveled and anastomosed to the side of the artery with running suture of 5-0 Prolene. Prior to completion of the suture line, the arteries were allowed to back-bleed and the graft limb was allowed to flush. The artery was filled with heparin solution and the suture line was completed. Flow was then restored into the left femoral artery with removal of all the clamps. Good pulses were felt and heard with Doppler in both deep and superficial femoral branches. Surgicel was applied to control bleeding from the suture line. Attention was returned to the abdomen. There was a small amount of blood within the retroperitoneum and several bleeding sites along the wall of the aorta were caused and controlled with suture ligatures of Vicryl. The aneurysm sac was packed with Surgicel and was then closed over the graft using running sutures of 2-0 Vicryl. The retroperitoneum was reapproximated with running suture of 2-0 Vicryl. The small bowel was then returned to the peritoneal cavity. The sigmoid colon was inspected and was viable. The midline fascia was reapproximated with a running double suture of 1 PDS. The subcutaneous tissues were irrigated, and the skin was closed with jeff. The left groin incision was irrigated and closed with interrupted suture of 3-0 Vicryl and jeff. Sterile dressings were applied. The patient was transported to the recovery room in critical condition. 1 04/29 DD: 1 DT: T1 Bear [id number] Job #:
[2016-09-27] MEDS ORDERED: ENOXAPARIN NA (PORCINE) 40 MG/0.4 ML DISP.SYRIN SQ SCH (10:00)
--- NOTE | 2016-09-27 10:05 | PN ---
Progress Note, Physician History of Present Illness: Hemodynamics improved with resolving acid base imbalance, extubated on 40% WM. - Current Medication List Current Medications: Active Medications Aspirin (Asa -) 81 mg PO DAILY TOI Clopidogrel Bisulfate (Plavix -) 75 mg PO DAILY TOI Enoxaparin Sodium (Lovenox -) 40 mg SQ DAILY TOI Hydromorphone HCl (Dilaudid Injection -) 0.5 mg IVPB Q4H PRN PRN Reason: PAIN Propofol (Diprivan -) 100 mls @ 2.858 mls/hr IVPB TITR TOI; 5 MCG/KG/MIN PRN Reason: Protocol Last Admin: 09/26/16 22:20 Dose: 2.858 mls/hr Sodium Bicarbonate 150 meq/ (Dextrose) 1,150 mls @ 75 mls/hr IV Q15H TOI Last Admin: 09/26/16 20:00 Dose: 75 mls/hr Vasopressin 40 units/ Sodium (Chloride) 100 mls @ 5 mls/hr IVPB ASDIR TOI; 2 UNITS/HR PRN Reason: Protocol Last Admin: 09/26/16 22:18 Dose: Not Given Norepinephrine Bitartrate 8, (000 mcg/ Dextrose) 500 mls @ 18.75 mls/hr IV TITR TOI; 5 MCG/MIN PRN Reason: Protocol Last Admin: 09/26/16 20:00 Dose: 18.75 mls/hr Nitroglycerin/Dextrose (Nitroglycerin 25mg/D5w 250ml) 250 mls @ 6 mls/hr IVPB TITR TOI PRN Reason: 10 MCG/MIN Last Admin: 09/26/16 20:00 Dose: 6 mls/hr Fentanyl 500 mcg/ Dextrose 100 mls @ 10 mls/hr IJ TITR TOI PRN Reason: 50 MCG/HR Stop: 09/27/16 21:14 Last Admin: 09/26/16 20:00 Dose: 10 mls/hr Famotidine/Sodium Chloride (Pepcid 20 Mg Premixed Ivpb -) 50 mls @ 100 mls/hr IVPB BID TOI Last Admin: 09/27/16 00:59 Dose: 100 mls/hr Levothyroxine Sodium (Synthroid Injection -) 75 mcg IVPUSH DAILY [facility] - Objective Vital Signs: Vital Signs Temperature 98.2 F 09/27/16 09:00 Pulse Rate 78 09/27/16 09:00 Respiratory Rate 30 H 09/27/16 09:00 Blood Pressure 105/69 09/27/16 09:00 O2 Sat by Pulse Oximetry (%) 100 09/26/16 21:00 Constitutional: Yes: No Distress, Calm Neck: Yes: Supple Cardiovascular: Yes: Tachycardia Respiratory: Yes: Regular, Diminished, On Venti-Mask Gastrointestinal: Yes: Soft, Hypoactive Bowel Sounds Edema: No Labs: CBC, BMP 09/27/16 05:30 09/27/16 05:30 INR, PTT INR 1.32 (0.82-1.09) H 09/27/16 05:30 Problem List - Problems (1) Abdominal aortic aneurysm Code(s): I71.4 - ABDOMINAL AORTIC ANEURYSM, WITHOUT RUPTURE Qualifiers: Presence of rupture: without rupture Qualified Code(s): I71.4 - Abdominal aortic aneurysm, without rupture (2) COPD (chronic obstructive pulmonary disease) Code(s): J44.9 - CHRONIC OBSTRUCTIVE PULMONARY DISEASE, UNSPECIFIED Qualifiers : COPD type: unspecified COPD Qualified Code(s): J44.9 - Chronic obstructive pulmonary disease, unspecified (3) Chronic kidney disease, stage 2 (mild) Code(s): N18.2 - CHRONIC KIDNEY DISEASE, STAGE 2 (MILD) (4) Acute hypercapnic respiratory failure Code(s): J96.02 - ACUTE RESPIRATORY FAILURE WITH HYPERCAPNIA (5) Coronary artery disease Code(s): I25.10 - ATHSCL HEART DISEASE OF [place] CORONARY ARTERY W/O ANG PCTRS Qualifiers: Coronary Disease-Associated Artery/Lesion type: [place] artery [place] vs. transplanted heart: [place] heart Associated angina: without angina Qualified Code(s): I25.10 - Atherosclerotic heart disease of [place] coronary artery without angina pectoris (6) Status post insertion of drug eluting coronary artery stent Code(s): Z95.5 - PRESENCE OF CORONARY ANGIOPLASTY IMPLANT AND GRAFT (7) Hyperlipidemia LDL goal <100 Code(s): E78.5 - HYPERLIPIDEMIA, UNSPECIFIED (8) Hypothyroidism Code(s): E03.9 - HYPOTHYROIDISM, UNSPECIFIED Qualifiers: Hypothyroidism type: unspecified Qualified Code(s): E03.9 - Hypothyroidism, unspecified (9) S/P aortic aneurysm repair Code(s): Z98.890 - OTHER SPECIFIED POSTPROCEDURAL STATES Z86.79 - PERSONAL HISTORY OF OTHER DISEASES OF THE CIRCULATORY SYSTEM Assessment/Plan 08/16/2016 Echo: Normal LV size and fxn, mild cLVH, mild MR 08/21/2016 Regadenoson Myoview: Small mild inferior ischemia, LVEF 80% 1. Hypercapneic respiratory failure post-op resolving 2. s/p open repair of 6 cm juxtarenal abdominal aortic aneurysm, left femoral bypass, right iliac bypass. 3. CAD s/p NAIF LAD, demand ischemia 4. COPD 5. Acute on CKD with improving lactic acidosis 6. Labile HTN stabilized 7. Hyperlipidemia 8. Sinus tachycardia 9. Hypothyroidism P:1. Wean FIO2 as tolerated, BD as needed 2. Trops have peaked, monitor renal function and output, monitor Hgb post transfusion 3. F/u Echocardiogram to assess ventricular and valve fxn 4. Volume resuscitation, HCO3 drip, resume Crestor and Bystolic as hemodynamics have stabilized 5. ASA 81 qd, Plavix 75 qd, GI and DVT prophylaxis
[2016-09-27] MEDS: CLOPIDOGREL BISULFATE 75 MG TABLET (FP) PO SCH (10:34)
[2016-09-27] MEDS: ASPIRIN 81 MG CHEWABLE TABLETS PO SCH (10:34)
[2016-09-27] MEDS: LEVOTHYROXINE SODIUM 100 MCG VIAL IVPUSH SCH ×2 (10:34→10:41)
[2016-09-27] MEDS: HYDROmorphone HCL CARPU-JECT 1 MG/1 ML DISP.SYRIN IVPB PRN ×4 (10:40→22:19)
--- NOTE | 2016-09-27 11:32 | CONSULT ---
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 Pt was found to be acidotic, hyperkalemic and in renal failure post op. I was called to evaluate him. He also had very labile blood pressure during the surgery. He was transferred to the ICU post op. He is mechanically ventilated. He was given fluids and bicarb overnight. His metabolic acidosis and hyperkalemia improved. Pt is intubated in the ICU and unable to give history. Care discussed with ICU team. - History Source History Provided By: Medical Record Limitations to Obtaining History: Clinical Condition - Past Medical History Cardio/Vascular: Yes: CAD, HTN, Hyperlipdemia Pulmonary: Yes: COPD Gastrointestinal: Yes: Gastritis Renal/: Yes: Other (Satge 2 CKD, essential HTN) Endocrine: Yes: Hypothyroidism - Past Surgical History Past Surgical History: Yes: AAA Repair, Amputation - Alcohol/Substance Use Hx Alcohol Use: No History of Substance Use: reports: None - Smoking History Smoking history: Current every day smoker Have you smoked in the past 12 months: Yes Aproximately how many cigarettes per day: 2 - Social History ADL: Independent History of Recent Travel: No Home Medications - Allergies Allergies/Adverse Reactions: Allergies Allergy/AdvReac Type Severity Reaction Status Date / Time No Known Drug Allergies Allergy Verified 09/26/16 07:44 BEES Allergy Uncoded 09/26/16 07:44 - Home Medications Home Medications: Ambulatory Orders Clopidogrel Bisulfate [Plavix -] 75 mg PO DAILY #30 tablet 04/07/12 Levothyroxine [Synthroid -] 137 mcg PO ASDIR #0 tablet 04/07/12 Levothyroxine [Synthroid -] 150 mcg PO DAILY #30 tablet 04/07/12 Nebivolol HCl [Bystolic] 5 mg NR DAILY #30 tablet 04/07/12 Lansoprazole [Prevacid] 30 mg PO PRN PRN 04/22/12 Rosuvastatin Calcium [Crestor] 20 mg PO DAILY 04/22/12 Aspirin [ASA -] 81 mg PO DAILY 09/17/16 Family Disease History - Family Disease History Family History: Unable to Obtain Review of Systems Unable to obtain ROS, reason: pt intubated Physical Exam Vital Signs: Vital Signs Temperature 97.9 F 09/27/16 10:00 Pulse Rate 75 09/27/16 10:27 Respiratory Rate 30 H 09/27/16 10:00 Blood Pressure 120/90 09/27/16 10:00 O2 Sat by Pulse Oximetry (%) 100 09/27/16 10:27 Constitutional: Yes: Calm Eyes: Yes: Conjunctiva Clear Cardiovascular: Yes: S1, S2 Respiratory: Yes: Mechanically Ventilated Gastrointestinal: Yes: Soft, Abdomen, Obese, Other (dressing in place) Renal/: Yes: [place] Present Musculoskeletal: Yes: Muscle Weakness Edema: Yes Edema: LLE: Trace, RLE: Trace Wound/Incision: Yes: Dressing Dry and Intact Neurological: Yes: Lethargy Psychiatric: Yes: Oriented Labs: CBC, BMP 09/27/16 05:30 09/27/16 05:30 Laboratory Tests 03/31/12 04/06/12 04/07/12 05:10 06:45 07:35 WBC Hgb Plt Count INR ABG pH ABG pCO2 at Pt Temp ABG pO2 at Pt Temp ABG HCO3 ABG O2 Sat (Measured) ABG O2 Content ABG Base Excess Sodium Potassium Chloride Carbon Dioxide Anion Gap BUN Creatinine 1.5 H 1.2 1.3 Random Glucose Lactic Acid 04/22/12 07/26/12 12/13/12 09:02 13:50 08:21 WBC Hgb Plt Count INR ABG pH ABG pCO2 at Pt Temp ABG pO2 at Pt Temp ABG HCO3 ABG O2 Sat (Measured) ABG O2 Content ABG Base Excess Sodium Potassium 4.2 Chloride Carbon Dioxide Anion Gap BUN Creatinine 1.5 H 1.6 H 1.5 H Random Glucose Lactic Acid 09/17/16 09/26/16 09/26/16 11:03 14:15 14:15 WBC 24.8 H D Hgb Plt Count INR ABG pH ABG pCO2 at Pt Temp ABG pO2 at Pt Temp ABG HCO3 ABG O2 Sat (Measured) ABG O2 Content ABG Base Excess Sodium Potassium 4.6 5.7 H D Chloride Carbon Dioxide Anion Gap BUN Creatinine 1.7 H 1.9 H Random Glucose Lactic Acid 09/26/16 09/26/16 09/26/16 17:40 18:15 18:15 WBC 23.8 H Hgb Plt Count INR 1.28 H ABG pH 7.09 L* ABG pCO2 at Pt Temp 61.5 H* D ABG pO2 at Pt Temp 100.0 D ABG HCO3 18.0 L ABG O2 Sat (Measured) 96.2 ABG O2 Content 20.8 ABG Base Excess Sodium Potassium Chloride Carbon Dioxide Anion Gap BUN Creatinine Random Glucose Lactic Acid 09/26/16 09/26/16 09/26/16 18:15 19:07 20:15 WBC Hgb Plt Count INR ABG pH 7.09 L* ABG pCO2 at Pt Temp 58.5 H ABG pO2 at Pt Temp 89.7 ABG HCO3 16.9 L ABG O2 Sat (Measured) 95.0 ABG O2 Content 22.0 ABG Base Excess Sodium Potassium 6.5 H* 5.5 H Chloride Carbon Dioxide Anion Gap BUN Creatinine 2.0 H 2.2 H Random Glucose Lactic Acid 09/26/16 09/26/16 09/26/16 20:15 20:33 21:50 WBC 25.1 H Hgb Plt Count INR ABG pH 7.11 L* ABG pCO2 at Pt Temp 44.3 D ABG pO2 at Pt Temp 95.3 ABG HCO3 13.4 L* ABG O2 Sat (Measured) 96.2 ABG O2 Content 19.0 ABG Base Excess Sodium Potassium Chloride Carbon Dioxide Anion Gap BUN Creatinine Random Glucose Lactic Acid 3.7 H* 09/27/16 09/27/16 09/27/16 05:30 05:30 05:30 WBC 15.6 H D Hgb 14.3 Plt Count 81 L INR 1.32 H ABG pH ABG pCO2 at Pt Temp ABG pO2 at Pt Temp ABG HCO3 ABG O2 Sat (Measured) ABG O2 Content ABG Base Excess Sodium 144 Potassium 4.9 Chloride 114 H Carbon Dioxide 20 L Anion Gap 10 BUN 24 H Creatinine 2.4 H Random Glucose 185 H Lactic Acid 09/27/16 09/27/16 05:30 05:30 WBC Hgb Plt Count INR ABG pH 7.30 L ABG pCO2 at Pt Temp 41.1 D ABG pO2 at Pt Temp 126.0 H D ABG HCO3 19.8 L ABG O2 Sat (Measured) 99.0 H ABG O2 Content 20.2 ABG Base Excess -5.9 L Sodium Potassium Chloride Carbon Dioxide Anion Gap BUN Creatinine Random Glucose Lactic Acid 2.8 H* Imaging - Results Chest X-ray: Report Reviewed Problem List - Problems (1) Abdominal aortic aneurysm Code(s): I71.4 - ABDOMINAL AORTIC ANEURYSM, WITHOUT RUPTURE Qualifiers: Presence of rupture: without rupture Qualified Code(s): I71.4 - Abdominal aortic aneurysm, without rupture (2) Acute hypercapnic respiratory failure Code(s): J96.02 - ACUTE RESPIRATORY FAILURE WITH HYPERCAPNIA (3) COPD (chronic obstructive pulmonary disease) Code(s): J44.9 - CHRONIC OBSTRUCTIVE PULMONARY DISEASE, UNSPECIFIED Qualifiers : COPD type: unspecified COPD Qualified Code(s): J44.9 - Chronic obstructive pulmonary disease, unspecified (4) Chronic kidney disease, stage 2 (mild) Code(s): N18.2 - CHRONIC KIDNEY DISEASE, STAGE 2 (MILD) (5) Coronary artery disease Code(s): I25.10 - ATHSCL HEART DISEASE OF [place] CORONARY ARTERY W/O ANG PCTRS Qualifiers: Coronary Disease-Associated Artery/Lesion type: [place] artery [place] vs. transplanted heart: [place] heart Associated angina: without angina Qualified Code(s): I25.10 - Atherosclerotic heart disease of [place] coronary artery without angina pectoris (6) HELLEN (acute kidney injury) Code(s): N17.9 - ACUTE KIDNEY FAILURE, UNSPECIFIED (7) Hyperkalemia Code(s): E87.5 - HYPERKALEMIA (8) Metabolic acidemia Code(s): E87.2 - ACIDOSIS Assessment/Plan Current Medications Generic Name Dose Route Start Last Admin Trade Name Freq PRN Reason Stop Dose Admin Aspirin 81 mg 09/27/16 10:00 09/27/16 10:34 Asa - PO 81 mg DAILY TOI Administration Clopidogrel Bisulfate 75 mg 09/27/16 10:00 09/27/16 10:34 Plavix - PO 75 mg DAILY TOI Administration Enoxaparin Sodium 40 mg 09/27/16 10:00 09/27/16 10:34 Lovenox - SQ 40 mg DAILY TOI Administration Hydromorphone HCl 0.5 mg 09/26/16 19:02 09/27/16 10:40 Dilaudid Injection - IVPB 0.5 mg Q4H PRN Administration PAIN Propofol 100 mls @ 2.858 mls/hr 09/26/16 19:00 09/26/16 22:20 Diprivan - IVPB 2.858 mls/hr TITR TOI Administration Protocol 5 MCG/KG/MIN Sodium Bicarbonate 150 meq/ 1,150 mls @ 75 mls/hr 09/26/16 19:45 09/26/16 20:00 Dextrose IV 75 mls/hr Q15H TOI Administration Vasopressin 40 units/ Sodium 100 mls @ 5 mls/hr 09/26/16 21:00 09/26/16 22:18 Chloride IVPB Not Given ASDIR TOI Protocol 2 UNITS/HR Norepinephrine Bitartrate 8, 500 mls @ 18.75 mls/hr 09/26/16 21:15 09/26/16 20: 00 000 mcg/ Dextrose IV 18.75 mls/hr TITR TOI Administration Protocol 5 MCG/MIN Nitroglycerin/Dextrose 250 mls @ 6 mls/hr 09/26/16 21:15 09/26/16 20:00 Nitroglycerin 25mg/D5w 250ml IVPB 6 mls/hr TITR TOI Administration 10 MCG/MIN Fentanyl 500 mcg/ Dextrose 100 mls @ 10 mls/hr 09/26/16 21:15 09/26/16 20:00 IJ 09/27/16 21:14 10 mls/hr TITR TOI Administration 50 MCG/HR Famotidine/Sodium Chloride 50 mls @ 100 mls/hr 09/27/16 00:30 09/27/16 10:33 Pepcid 20 Mg Premixed Ivpb - IVPB 100 mls/hr BID TOI Administration Levothyroxine Sodium 75 mcg 09/27/16 06:30 09/27/16 10:41 Synthroid Injection - IVPUSH 75 mcg DAILY TOI Administration Impression 1. HELLEN 2. hyperkalemia 3. respiratory failure requiring intubation 4. metabolic and respiratory acidosis 5. labile HTN - pt is now hypotensive and on levophed 6. s/p AAA repair 7. hyperlipidemia 8. CAD Plan - cont to monitor renal function, creatinine is rising - likely ATN - blood pressure is stabilizing - repeat labs in am - will decrease amount ob bicarb in fluids to 75 meq - vascular input appreciated - discussed with ICU team - should get a pheochromocytoma workup as well - corrected calcium is normal - cont with synthroid - will follow closely - repeat cxr Dr Woods
--- NOTE | 2016-09-27 11:43 | PN ---
Teaching Attending Note Name of Resident: Rico Davila ATTENDING PHYSICIAN STATEMENT I saw and evaluated the patient. I reviewed the resident's note and discussed the case with the resident. I agree with the resident's findings and plan as documented. SUBJECTIVE: Pt seen and examined in the ICU. Remained intubated overnight, arousable on sedation. On levophed gtt, placed on CPAP/PS with good tidal volumes and RR, subsequently extubated. OBJECTIVE: Last Vital Signs Temp Pulse Resp BP Pulse Ox 97.9 F 75 30 H 120/90 100 09/27/16 10:00 09/27/16 10:27 09/27/16 10:00 09/27/16 10:00 09/27/16 10:27 Intake & Output 09/24/16 09/25/16 09/26/16 09/27/16 23:59 23:59 23:59 23:59 Intake Total 44766 1625 Output Total 3125 720 Balance 03394 905 Weight 238 lb 12.17 oz Gen: intubated, arousable Heart: RRR Lung: scattered rhonchi Abd: soft, nontender Ext: no edema CBC, BMP 09/27/16 05:30 09/27/16 05:30 ABG Results ABG pH 7.30 (7.35-7.45) L 09/27/16 05:30 ABG pCO2 at Pt Temp 41.1 mmHg (35-45) D 09/27/16 05:30 ABG pO2 at Pt Temp 126.0 mmHg (70-100) H D 09/27/16 05:30 ABG HCO3 19.8 meq/L (22-26) L 09/27/16 05:30 ABG O2 Sat (Measured) 99.0 % (90-98.9) H 09/27/16 05:30 ABG O2 Content 20.2 % vol (15-22) 09/27/16 05:30 ABG Base Excess -5.9 meq/l (-2-2) L 09/27/16 05:30 Active Medications Aspirin (Asa -) 81 mg PO DAILY [facility] Last Admin: 09/27/16 10:34 Dose: 81 mg Clopidogrel Bisulfate (Plavix -) 75 mg PO DAILY [facility] Last Admin: 09/27/16 10:34 Dose: 75 mg Enoxaparin Sodium (Lovenox -) 40 mg SQ DAILY [facility] Last Admin: 09/27/16 10:34 Dose: 40 mg Hydromorphone HCl (Dilaudid Injection -) 0.5 mg IVPB Q4H PRN PRN Reason: PAIN Last Admin: 09/27/16 10:40 Dose: 0.5 mg Propofol (Diprivan -) 100 mls @ 2.858 mls/hr IVPB TITR TOI; 5 MCG/KG/MIN PRN Reason: Protocol Last Admin: 09/26/16 22:20 Dose: 2.858 mls/hr Sodium Bicarbonate 150 meq/ (Dextrose) 1,150 mls @ 75 mls/hr IV Q15H TOI Last Admin: 09/26/16 20:00 Dose: 75 mls/hr Vasopressin 40 units/ Sodium (Chloride) 100 mls @ 5 mls/hr IVPB ASDIR TOI; 2 UNITS/HR PRN Reason: Protocol Last Admin: 09/26/16 22:18 Dose: Not Given Norepinephrine Bitartrate 8, (000 mcg/ Dextrose) 500 mls @ 18.75 mls/hr IV TITR TOI; 5 MCG/MIN PRN Reason: Protocol Last Admin: 09/26/16 20:00 Dose: 18.75 mls/hr Nitroglycerin/Dextrose (Nitroglycerin 25mg/D5w 250ml) 250 mls @ 6 mls/hr IVPB TITR TOI PRN Reason: 10 MCG/MIN Last Admin: 09/26/16 20:00 Dose: 6 mls/hr Fentanyl 500 mcg/ Dextrose 100 mls @ 10 mls/hr IJ TITR TOI PRN Reason: 50 MCG/HR Stop: 09/27/16 21:14 Last Admin: 09/26/16 20:00 Dose: 10 mls/hr Famotidine/Sodium Chloride (Pepcid 20 Mg Premixed Ivpb -) 50 mls @ 100 mls/hr IVPB BID TOI Last Admin: 09/27/16 10:33 Dose: 100 mls/hr Levothyroxine Sodium (Synthroid Injection -) 75 mcg IVPUSH DAILY TOI Last Admin: 09/27/16 10:41 Dose: 75 mcg ASSESSMENT AND PLAN: s/p Open Juxtarenal AAA repair, Left Femoral Bypass, Right Iliac Bypass Acute Hypercapneic Respiratory Failure Shock - ?Distributive Acute on Chronic Renal Failure Metablolic/Lactic Acidosis COPD CAD +Troponins likely [place] Ischemia Hypothyroidism - pt extubated to ventimask - IVF to keep CVP 8-12, 0-2 this AM on rounds - taper off levophed gtt, maintain MAP >65 - ASA, plavix - beta blockade if BP tolerates - echocardiogram - continue bicarb gtt for now - trend lactate - monitor ABG - NPO - pain control - incentive spirometry - DVT/GI prophylaxis - continue ICU monitoring critical care time spent in reviewing chart, evaluating patient and formulating plan 40 min
--- NOTE | 2016-09-27 11:52 | PN ---
Progress Note (short form) - Note Progress Note: Anesthesia post op note S/p Open AAA repair,POd#1. Pat seen and examined. Extubated this morning. VSS. On Norepi drip. No apparent post anesthesia complications. Signed off.
--- NOTE | 2016-09-27 12:06 | PN ---
Physical Exam: SUBJECTIVE: Patient seen and examined at bedside this AM. Afebrile overnight with improvement in labile blood pressures. Successfully extubated this morning and saturating well on 50% ventimask. Continue pressor support for now, but tapering progressively. OBJECTIVE: Vital Signs Period Temp Pulse Resp BP Sys/Simmons Pulse Ox Last 24 Hr 97.1 F-98.3 F 46-80 12-30 55-207/33-101 87-100 GENERAL: The patient is awake, but lethargic s/p sedation cessation. Resting comfortably in bed but remains with restrained as he attempts to pull at venous access lines. HEENT: Atraumatic, EOMI, PERRLA, No lymphadenopathy, dry mucous membranes LUNGS: Breath sounds equal, clear to auscultation bilaterally, no wheezes, no crackles, no accessory muscle use. HEART: Regular rate and rhythm, S1, S2 without murmur, rub or gallop. ABDOMEN: Soft, nontender to mild palpation & only mildly distended. No signs of guarding or rebound. dressing dry & intact. No drainage or surrounding erythema near incision site. EXTREMITIES: 1+ pulses, lukewarm temperature, poor capillary refill in toes ( but is baseline), +1 edema bilateral LE NEUROLOGICAL: Cranial nerves II through XII grossly intact. Normal speech, gait not observed. PSYCH: lethargic due to sedation, cannot truly assess SKIN: as above Laboratory Results - last 24 hr 09/26/16 09/26/16 09/26/16 06:40 14:14 14:15 WBC 24.8 H D RBC 4.84 Hgb 14.6 Hct 46.1 MCV 95.3 MCHC 31.7 L RDW 14.1 Plt Count 107 L MPV 10.4 D Neutrophils % 73.0 D Lymphocytes % 13.0 D Monocytes % 9.0 Eosinophils % 2.0 Band Neutrophils 2.0 Metamyelocytes 1 Differential Comment Manual diff done Platelet Estimate Decreased INR Puncture Site Md puncture ABG pH 7.00 L* ABG pCO2 at Pt Temp 87.2 H* ABG pO2 at Pt Temp 354.0 H* ABG HCO3 20.5 L ABG O2 Sat (Measured) 99.0 H ABG O2 Content 21.6 ABG Base Excess -13.9 L* Diogo Test Not applicable VBG pH POC VBG pCO2 POC VBG pO2 Mixed VBG HCO3 O2 Delivery Device [facility].vent Oxygen Flow Rate 100% Vent Mode Vent Rate Mechanical Rate PEEP 0.0 Pressure Support Vent Sodium Potassium Chloride Carbon Dioxide Anion Gap BUN Creatinine Creat Clearance w eGFR Random Glucose Lactic Acid Calcium Total Bilirubin Direct Bilirubin AST ALT Alkaline Phosphatase Creatine Kinase Creatine Kinase Index CK-MB (CK-2) CK-MB (CK-2) Rel Index Troponin I Total Protein Albumin Blood Type B POSITIVE Antibody Screen Negative Crossmatch See Detail 09/26/16 09/26/16 09/26/16 14:15 16:15 17:40 WBC RBC Hgb Hct MCV MCHC RDW Plt Count MPV Neutrophils % Lymphocytes % Monocytes % Eosinophils % Band Neutrophils Metamyelocytes Differential Comment Platelet Estimate INR Puncture Site Arterial line Arterial line ABG pH 7.01 L* 7.09 L* ABG pCO2 at Pt Temp 83.8 H* 61.5 H* D ABG pO2 at Pt Temp 81.1 D 100.0 D ABG HCO3 20.2 L 18.0 L ABG O2 Sat (Measured) 90.8 96.2 ABG O2 Content 20.8 20.8 ABG Base Excess -14.4 L* -13.0 L* Diogo Test Not applicable Not applicable VBG pH POC VBG pCO2 POC VBG pO2 Mixed VBG HCO3 O2 Delivery Device Mec.vent Mec.vent Oxygen Flow Rate 60% 60% Vent Mode A/c A/c Vent Rate 12 20 Mechanical Rate Yes Yes PEEP 0.0 0.0 Pressure Support Vent 500 550 Sodium 143 Potassium 5.7 H D Chloride 111 H Carbon Dioxide 22 D Anion Gap 10 BUN 18 Creatinine 1.9 H Creat Clearance w eGFR 34.92 Random Glucose 217 H D Lactic Acid Calcium 7.0 L D Total Bilirubin 0.1 L D Direct Bilirubin AST 22 ALT 18 Alkaline Phosphatase 51 D Creatine Kinase Creatine Kinase Index CK-MB (CK-2) CK-MB (CK-2) Rel Index Troponin I Total Protein 4.3 L D Albumin 1.9 L D Blood Type Antibody Screen Crossmatch 09/26/16 09/26/16 09/26/16 18:15 18:15 18:15 WBC 23.8 H RBC 5.07 Hgb 15.2 Hct 47.7 MCV 94.2 MCHC 31.8 L RDW 14.6 Plt Count 95 L MPV 9.5 Neutrophils % Lymphocytes % Monocytes % Eosinophils % Band Neutrophils Metamyelocytes Differential Comment Platelet Estimate INR 1.28 H Puncture Site ABG pH ABG pCO2 at Pt Temp ABG pO2 at Pt Temp ABG HCO3 ABG O2 Sat (Measured) ABG O2 Content ABG Base Excess Diogo Test VBG pH POC VBG pCO2 POC VBG pO2 Mixed VBG HCO3 O2 Delivery Device Oxygen Flow Rate Vent Mode Vent Rate Mechanical Rate PEEP Pressure Support Vent Sodium 142 Potassium 6.5 H* Chloride 113 H Carbon Dioxide 20 L Anion Gap 9 BUN 20 H Creatinine 2.0 H Creat Clearance w eGFR Random Glucose 150 H D Lactic Acid Calcium 7.0 L Total Bilirubin Direct Bilirubin AST ALT Alkaline Phosphatase Creatine Kinase Creatine Kinase Index CK-MB (CK-2) CK-MB (CK-2) Rel Index Troponin I Total Protein Albumin Blood Type Antibody Screen Crossmatch 09/26/16 09/26/16 09/26/16 19:07 20:15 20:15 WBC RBC Hgb Hct MCV MCHC RDW Plt Count MPV Neutrophils % Lymphocytes % Monocytes % Eosinophils % Band Neutrophils Metamyelocytes Differential Comment Platelet Estimate INR Puncture Site Arterial line ABG pH 7.09 L* ABG pCO2 at Pt Temp 58.5 H ABG pO2 at Pt Temp 89.7 ABG HCO3 16.9 L ABG O2 Sat (Measured) 95.0 ABG O2 Content 22.0 ABG Base Excess -14.3 L* Diogo Test Not applicable VBG pH POC VBG pCO2 POC VBG pO2 Mixed VBG HCO3 O2 Delivery Device Mec.vent Oxygen Flow Rate 60 Vent Mode A/c Vent Rate 24 Mechanical Rate Yes PEEP 0.0 Pressure Support Vent 500 Sodium 142 Potassium 5.5 H Chloride 114 H Carbon Dioxide 19 L Anion Gap 9 BUN 22 H Creatinine 2.2 H Creat Clearance w eGFR Random Glucose 204 H D Lactic Acid 3.7 H* Calcium 8.1 L Total Bilirubin Direct Bilirubin AST ALT Alkaline Phosphatase Creatine Kinase Creatine Kinase Index CK-MB (CK-2) CK-MB (CK-2) Rel Index Troponin I Total Protein Albumin Blood Type Antibody Screen Crossmatch 09/26/16 09/26/16 09/26/16 20:20 20:33 21:42 WBC RBC Hgb Hct MCV MCHC RDW Plt Count MPV Neutrophils % Lymphocytes % Monocytes % Eosinophils % Band Neutrophils Metamyelocytes Differential Comment Platelet Estimate INR Puncture Site Arterial line Arterial line ABG pH 7.11 L* 7.17 L* ABG pCO2 at Pt Temp 44.3 D 54.7 H D ABG pO2 at Pt Temp 95.3 96.7 ABG HCO3 13.4 L* 18.9 L ABG O2 Sat (Measured) 96.2 97.1 ABG O2 Content 19.0 21.9 ABG Base Excess -16.0 L* -10.4 L* Diogo Test Positive Positive VBG pH POC VBG pCO2 POC VBG pO2 Mixed VBG HCO3 O2 Delivery Device Mech vent Mech vent Oxygen Flow Rate 60% 60% Vent Mode A/c A/c Vent Rate 26 30 Mechanical Rate Yes Yes PEEP 0.0 0.0 Pressure Support Vent 500 500 Sodium Potassium Chloride Carbon Dioxide Anion Gap BUN Creatinine Creat Clearance w eGFR Random Glucose Lactic Acid Calcium Total Bilirubin Direct Bilirubin AST ALT Alkaline Phosphatase Creatine Kinase 102 Creatine Kinase Index CK-MB (CK-2) CK-MB (CK-2) Rel Index Troponin I 0.57 H D Total Protein Albumin Blood Type Antibody Screen Crossmatch 09/26/16 09/26/16 09/27/16 21:50 23:08 05:30 WBC 25.1 H 15.6 H D RBC 5.18 4.68 Hgb 15.5 14.3 Hct 48.2 42.9 MCV 93.0 91.8 MCHC 32.1 33.2 RDW 14.8 14.5 Plt Count 95 L 81 L MPV 9.2 9.2 Neutrophils % Lymphocytes % Monocytes % Eosinophils % Band Neutrophils Metamyelocytes Differential Comment Platelet Estimate INR Puncture Site ABG pH ABG pCO2 at Pt Temp ABG pO2 at Pt Temp ABG HCO3 ABG O2 Sat (Measured) ABG O2 Content ABG Base Excess Diogo Test VBG pH 7.17 L* POC VBG pCO2 57.1 H POC VBG pO2 48.4 H Mixed VBG HCO3 19.8 O2 Delivery Device Oxygen Flow Rate Vent Mode Vent Rate Mechanical Rate PEEP Pressure Support Vent Sodium Potassium Chloride Carbon Dioxide Anion Gap BUN Creatinine Creat Clearance w eGFR Random Glucose Lactic Acid Calcium Total Bilirubin Direct Bilirubin AST ALT Alkaline Phosphatase Creatine Kinase Creatine Kinase Index CK-MB (CK-2) CK-MB (CK-2) Rel Index Troponin I Total Protein Albumin Blood Type Antibody Screen Crossmatch 09/27/16 09/27/16 09/27/16 05:30 05:30 05:30 WBC RBC Hgb Hct MCV MCHC RDW Plt Count MPV Neutrophils % Lymphocytes % Monocytes % Eosinophils % Band Neutrophils Metamyelocytes Differential Comment Platelet Estimate INR 1.32 H Puncture Site ABG pH ABG pCO2 at Pt Temp ABG pO2 at Pt Temp ABG HCO3 ABG O2 Sat (Measured) ABG O2 Content ABG Base Excess Diogo Test VBG pH POC VBG pCO2 POC VBG pO2 Mixed VBG HCO3 O2 Delivery Device Oxygen Flow Rate Vent Mode Vent Rate Mechanical Rate PEEP Pressure Support Vent Sodium 144 Potassium 4.9 Chloride 114 H Carbon Dioxide 20 L Anion Gap 10 BUN 24 H Creatinine 2.4 H Creat Clearance w eGFR Random Glucose 185 H Lactic Acid Calcium 6.9 L* Total Bilirubin 0.3 D Direct Bilirubin < 0.1 AST 36 D ALT 23 D Alkaline Phosphatase 41 L Creatine Kinase 154 D Creatine Kinase Index 3.0 CK-MB (CK-2) 4.651 H CK-MB (CK-2) Rel Index Troponin I 0.14 H D Total Protein 4.1 L Albumin 1.8 L Blood Type Antibody Screen Crossmatch 09/27/16 09/27/16 09/27/16 05:30 05:30 05:30 WBC RBC Hgb Hct MCV MCHC RDW Plt Count MPV Neutrophils % Lymphocytes % Monocytes % Eosinophils % Band Neutrophils Metamyelocytes Differential Comment Platelet Estimate INR Puncture Site Arterial line ABG pH 7.30 L ABG pCO2 at Pt Temp 41.1 D ABG pO2 at Pt Temp 126.0 H D ABG HCO3 19.8 L ABG O2 Sat (Measured) 99.0 H ABG O2 Content 20.2 ABG Base Excess -5.9 L Diogo Test Positive VBG pH POC VBG pCO2 POC VBG pO2 Mixed VBG HCO3 O2 Delivery Device Mech vent Oxygen Flow Rate 60% Vent Mode A/c Vent Rate 30 Mechanical Rate Yes PEEP 0.0 Pressure Support Vent 500 Sodium Potassium Chloride Carbon Dioxide Anion Gap BUN Creatinine Creat Clearance w eGFR Random Glucose Lactic Acid 2.8 H* Calcium Total Bilirubin Direct Bilirubin AST ALT Alkaline Phosphatase Creatine Kinase Creatine Kinase Index CK-MB (CK-2) CK-MB (CK-2) Rel Index Cancelled Troponin I Total Protein Albumin Blood Type Antibody Screen Crossmatch Active Medications Generic Name Dose Route Start Last Admin Trade Name Freq PRN Reason Stop Dose Admin Aspirin 81 mg 09/27/16 10:00 09/27/16 10:34 Asa - PO 81 mg DAILY TOI Administration Clopidogrel Bisulfate 75 mg 09/27/16 10:00 09/27/16 10:34 Plavix - PO 75 mg DAILY TOI Administration Enoxaparin Sodium 40 mg 09/27/16 10:00 09/27/16 10:34 Lovenox - SQ 40 mg DAILY TOI Administration Hydromorphone HCl 0.5 mg 09/26/16 19:02 09/27/16 13:21 Dilaudid Injection - IVPB 0.5 mg Q4H PRN Administration PAIN Propofol 100 mls @ 2.858 mls/hr 09/26/16 19:00 09/26/16 22:20 Diprivan - IVPB 2.858 mls/hr TITR TOI Administration Protocol 5 MCG/KG/MIN Vasopressin 40 units/ Sodium 100 mls @ 5 mls/hr 09/26/16 21:00 09/26/16 22:18 Chloride IVPB Not Given ASDIR TOI Protocol 2 UNITS/HR Norepinephrine Bitartrate 8, 500 mls @ 18.75 mls/hr 09/26/16 21:15 09/26/16 20: 00 000 mcg/ Dextrose IV 18.75 mls/hr TITR TOI Administration Protocol 5 MCG/MIN Nitroglycerin/Dextrose 250 mls @ 6 mls/hr 09/26/16 21:15 09/26/16 20:00 Nitroglycerin 25mg/D5w 250ml IVPB 6 mls/hr TITR TOI Administration 10 MCG/MIN Fentanyl 500 mcg/ Dextrose 100 mls @ 10 mls/hr 09/26/16 21:15 09/26/16 20:00 IJ 09/27/16 21:14 10 mls/hr TITR TOI Administration 50 MCG/HR Famotidine/Sodium Chloride 50 mls @ 100 mls/hr 09/27/16 00:30 09/27/16 10:33 Pepcid 20 Mg Premixed Ivpb - IVPB 100 mls/hr BID TOI Administration Sodium Bicarbonate 75 meq/ 1,075 mls @ 75 mls/hr 09/27/16 11:51 Dextrose IV Q14H TOI Levothyroxine Sodium 75 mcg 09/27/16 06:30 09/27/16 10:41 Synthroid Injection - IVPUSH 75 mcg DAILY TOI Administration ASSESSMENT/PLAN: Patient is a 71 year old male with significant PMH of COPD, Gastritis, CAD, Essential HTN, CKD II, current smoker who presented to ICU from OR s/p 6cm elective AAA repair at juxtarenal level with left femoral bypass & right iliac bypass. Labile BP during & after procedure with respiratory & metabolic acidosis. #Acute hypercapneic respiratory failure, with metabolic & respiratory acidosis -extubated successfully today & saturating well on Ventimask 50% -holding propofol & fentanyl post-extubation -continue Sodium Bicarbonate drip (decreased from 150mEq to 75mEq) @75mls/hr #Labile HTN, improving -was on Levophed for BP support overnight, tapered off this morning -BP low-normal since tapering off pressors -keep MAP >65 #AAA repair -restarted ASA 81mg PO daily, Plavix 75mg PO daily as per surgery -dilaudid pain management -NPO -troponins trending down -incentive spirometry #Acute on Chronic Kidney disease -etiology is likely hypotension/ATN -receiving IVF, as above -continue to monitor -avoid nephrotoxic meds -nephrology consult appreciated #Hyperkalemia -resolved -will continue to monitor #Hypothyroidism -continue Synthroid 75mcg IV daily Prophylaxis/FEN -Lovenox -Pepcid IV -IVF, as above -continue to monitor electrolytes Visit type - Emergency Visit Emergency Visit: Yes ED Registration Date: 09/26/16 Care time: The patient presented to the Emergency Department on the above date and was hospitalized for further evaluation of their emergent condition. - New Patient This patient is new to me today: Yes Date on this admission: 09/27/16 - Critical Care Critical Care patient: Yes Total Critical Care Time (in minutes): 50 Critical Care Statement: The care of this patient involved high complexity decision making to prevent further life threatening deterioration of the patient 's condition and/or to evalute & treat vital organ system(s) failure or risk of failure.
[2016-09-27] MEDS ORDERED: SODIUM BICARBONATE 8.4% 50 MEQ/50 ML VIAL ONE (16:31)
[2016-09-27] MEDS: SODIUM BICARBONATE 8.4% - 75 MEQ in DEXTROSE 5%-WATER - 1,000 ML IV SCH (16:44)
[2016-09-28] MEDS: SODIUM BICARBONATE 8.4% - 75 MEQ in DEXTROSE 5%-WATER - 1,000 ML IV SCH (02:00)
[2016-09-28] MEDS: HYDROmorphone HCL CARPU-JECT 1 MG/1 ML DISP.SYRIN IVPB PRN ×3 (02:34→14:20)
[2016-09-28] MEDS ORDERED: ALBUTEROL SO4 0.083% IH SOL 2.5 MG/3 ML VIAL.NEB. NEB STA ×2 (05:34→05:35)
[2016-09-28] MEDS ORDERED: ALBUTEROL SO4 0.083% IH SOL 2.5 MG/3 ML VIAL.NEB. NEB PRN (05:37)
[2016-09-28 06:23] LABS: BASOPHIL 0.4 % (0-2.0); MCH 31.1 pg (25.7-33.7); MCHC 33.8 g/dl (32.0-35.9); MEAN CELL VOLUME 91.9 fl (80-96); MEAN PLT VOLUME 9.8 fl (7.5-11.1); NEUTROPHILS 86.4 % (42.8-82.8); PLATELET COUNT 60 K/MM3 (134-434); RDW 14.6 % (11.9-15.9)
[2016-09-28 06:40] LABS: INR 1.29 (0.82-1.09); PROTHROMBIN TIME (PATIENT) 14.3 SEC (9.98-11.88)
[2016-09-28 06:56] LABS: ALBUMIN 2.1 g/dl (3.4-5.0); BILIRUBIN,TOTAL 0.3 mg/dL (0.2-1.0); CALCIUM 7.5 mg/dL (8.5-10.1); COCKROFT - GAULT 42.11; CREATININE 2.4 mg/dL (0.7-1.3); MAGNESIUM 1.3 mg/dL (1.8-2.4); PHOSPHOROUS 3.9 mg/dL (2.5-4.9); TOT PROT 4.8 g/dl (6.4-8.2)
[2016-09-28 06:58] LABS: TROPONIN I 0.07 ng/ml (0.00-0.05)
[2016-09-28 07:45] LABS: ARTERIAL BLOOD GAS BASE EXCESS -3.2 meq/l (-2-2); ARTERIAL BLOOD GAS HCO3 22.9 meq/L (22-26); ARTERIAL BLOOD GAS PO2 89.4 mmHg (70-100)
[2016-09-28 07:46] LABS: ART PUNCT SITE ARTERIAL LINE; LPM/O2% 50%; MECH. VENT. BIPAP; PT. ON O2? YES; TYPE OF O2 BIPAP; VENT RATE 8; VT/PRESS IPAP 14/EPAP 5
--- NOTE | 2016-09-28 08:17 | PN ---
Progress Note (short form) - Note Progress Note: POD 2 Extubated, on BIPAP VSS Abd full, soft Wound dry Ext warm generalized edema Hgb 13.4, Platelets 60K Cr 2.4 (no change) Stable course, needs diuresis IV Lasix D/C NG Hold Lovenox for thrombocytopenia
[2016-09-28] MEDS ORDERED: FUROSEMIDE 40 MG/4 ML INJECTABLE VIAL IVPUSH STA (08:19)
[2016-09-28] MEDS ORDERED: MAGNESIUM SULF 50% (8.12 MEQ/2 ML-1 GM VIAL) IVPB ONE (08:45)
--- NOTE | 2016-09-28 08:51 | PN ---
Physical Exam: SUBJECTIVE: Patient seen and examined at bedside this AM. He is AAO and able to communicate for first time post-op. He had good urine output overnight and was afebrile. He states he is feeling well and is alert during a recap of his hospital course thus far. States his abdomen is not bothering him but he has NOT passed flatus or had a bowel movement yet. OBJECTIVE: Vital Signs Period Temp Pulse Resp BP Sys/Simmons Pulse Ox Last 24 Hr 97.2 F-98.7 F 75-110 18-30 100-143/60-90 95-100 GENERAL: The patient is awake, alert & oriented. Resting comfortably in bed and much calmer than yesterday. HEENT: Atraumatic, EOMI, PERRLA, No lymphadenopathy, dry mucous membranes. LUNGS: Breath sounds equal, clear to auscultation bilaterally, no wheezes, no crackles, no accessory muscle use. HEART: Regular rate and rhythm, S1, S2 without murmur, rub or gallop. ABDOMEN: Soft, nontender to mild palpation & minimally distended. No signs of guarding or rebound. intact/dry dressing. No drainage or erythema at incision site. EXTREMITIES: 1+ pulses, lukewarm temperature, poor capillary refill in toes ( but is baseline), +1 edema bilateral LE. NEUROLOGICAL: Cranial nerves II through XII grossly intact. Normal speech, gait not observed. PSYCH: normal affect & mood. conversational today SKIN: as above. Laboratory Results - last 24 hr 09/28/16 09/28/16 09/28/16 05:10 05:10 05:10 WBC 15.0 H RBC 4.32 Hgb 13.4 Hct 39.8 MCV 91.9 MCHC 33.8 RDW 14.6 Plt Count 60 L D MPV 9.8 Neutrophils % 86.4 H Lymphocytes % 4.4 L D Monocytes % 8.8 Eosinophils % 0.0 D Basophils % 0.4 INR 1.29 H Puncture Site ABG pH ABG pCO2 at Pt Temp ABG pO2 at Pt Temp ABG HCO3 ABG O2 Sat (Measured) ABG O2 Content ABG Base Excess Diogo Test O2 Delivery Device Oxygen Flow Rate Vent Mode Vent Rate Mechanical Rate PEEP Pressure Support Vent Sodium 143 Potassium 4.8 Chloride 108 H Carbon Dioxide 26 D Anion Gap 9 BUN 28 H Creatinine 2.4 H Creat Clearance w eGFR 26.67 Random Glucose 83 D Lactic Acid Calcium 7.5 L Phosphorus 3.9 D Magnesium 1.3 L D Total Bilirubin 0.3 AST 55 H D ALT 20 Alkaline Phosphatase 43 L Creatine Kinase 701 H D CK-MB (CK-2) Rel Index Troponin I 0.07 H D Total Protein 4.8 L Albumin 2.1 L 09/28/16 09/28/16 09/28/16 05:10 05:10 07:30 WBC RBC Hgb Hct MCV MCHC RDW Plt Count MPV Neutrophils % Lymphocytes % Monocytes % Eosinophils % Basophils % INR Puncture Site Arterial line ABG pH 7.30 L ABG pCO2 at Pt Temp 48.0 H ABG pO2 at Pt Temp 89.4 D ABG HCO3 22.9 ABG O2 Sat (Measured) 97.0 ABG O2 Content 18.2 ABG Base Excess -3.2 L Diogo Test Not applicable O2 Delivery Device Bipap Oxygen Flow Rate 50% Vent Mode S/t Vent Rate 8 Mechanical Rate Bipap PEEP 0.0 Pressure Support Vent Ipap 14/epap 5 Sodium Potassium Chloride Carbon Dioxide Anion Gap BUN Creatinine Creat Clearance w eGFR Random Glucose Lactic Acid 1.4 Calcium Phosphorus Magnesium Total Bilirubin AST ALT Alkaline Phosphatase Creatine Kinase CK-MB (CK-2) Rel Index 2.0 Troponin I Total Protein Albumin Active Medications Generic Name Dose Route Start Last Admin Trade Name Freq PRN Reason Stop Dose Admin Albuterol Sulfate 1 amp 09/28/16 05:37 Ventolin 0.083% Nebulizer Soln - NEB Q4H PRN SHORT OF BREATH/WHEEZING Arformoterol Tartrate 1 amp 09/28/16 10:30 Brovana (Restricted To Pulmonology/Resp) - NEB BID TOI Aspirin 81 mg 09/27/16 10:00 09/28/16 10:29 Asa - PO 81 mg DAILY TOI Administration Clopidogrel Bisulfate 75 mg 09/27/16 10:00 09/28/16 10:29 Plavix - PO 75 mg DAILY TOI Administration Hydromorphone HCl 0.5 mg 09/26/16 19:02 09/28/16 06:34 Dilaudid Injection - IVPB 0.5 mg Q4H PRN Administration PAIN Famotidine/Sodium Chloride 50 mls @ 100 mls/hr 09/27/16 00:30 09/28/16 09:54 Pepcid 20 Mg Premixed Ivpb - IVPB 100 mls/hr BID TOI Administration Dextrose/Sodium Chloride 1,000 mls @ 75 mls/hr 09/28/16 11:00 D5-Ns - IV ASDIR TOI Levothyroxine Sodium 75 mcg 09/27/16 06:30 09/28/16 10:24 Synthroid Injection - IVPUSH 75 mcg DAILY TOI Administration Methylprednisolone Sodium Succinate 40 mg 09/28/16 10:00 09/28/16 10:05 Solu-Medrol - IVPB 40 mg BID TOI Administration Nicotine 14 mg 09/28/16 10:00 Nicoderm Patch - TD DAILY TOI Ondansetron HCl 4 mg 09/27/16 22:38 09/28/16 00:00 Zofran Injection IVPB 4 mg Q6H PRN Administration NAUSEA ASSESSMENT/PLAN: Patient is a 71 year old male with significant PMH of COPD, Gastritis, CAD, Essential HTN, CKD II, current smoker who presented to ICU from OR s/p 6cm elective AAA repair at juxtarenal level with left femoral bypass & right iliac bypass. Labile BP during & after procedure with respiratory & metabolic acidosis. #Acute hypercapneic respiratory failure, with metabolic & respiratory acidosis -On BiPAP this morning for mild hypercapnea overnight, currently saturating well on NC @2L -discontinued bicarbonate drip -started IVF D5-NS @75cc/hr -Brovana NEB BID -Albuterol q4h PRN -Solumedrol 40mg BID #Labile HTN, improved -BP stable and at patient's baseline for >24 hours (baseline is systolic 100-120 ) -keep MAP >65 #AAA repair -ASA 81mg PO daily, Plavix 75mg PO daily as per surgery -dilaudid pain management -NPO for now -troponins trending down further -incentive spirometry #Acute on Chronic Kidney disease -etiology is likely hypotension/ATN -receiving IVF, as above -continue to monitor -avoid nephrotoxic meds -nephrology consult appreciated #Hyperkalemia -resolved -will continue to monitor #Hypothyroidism -continue Synthroid 75mcg IV daily Prophylaxis/FEN -Lovenox being held at present due to thrombocytopenia -Pepcid IV -IVF, as above -continue to monitor electrolytes (repleted Magnesium today) -Nicotine patch Visit type - Emergency Visit Emergency Visit: Yes ED Registration Date: 09/26/16 Care time: The patient presented to the Emergency Department on the above date and was hospitalized for further evaluation of their emergent condition. - New Patient This patient is new to me today: No - Critical Care Critical Care patient: Yes Total Critical Care Time (in minutes): 50 Critical Care Statement: The care of this patient involved high complexity decision making to prevent further life threatening deterioration of the patient 's condition and/or to evalute & treat vital organ system(s) failure or risk of failure.
--- NOTE | 2016-09-28 09:49 | EKG ---
Test Reason : Blood Pressure : / mmHG Vent. Rate : 066 BPM Atrial Rate : 066 BPM P-R Int : 166 ms QRS Dur : 122 ms QT Int : 430 ms P-R-T Axes : 078 -06 059 degrees QTc Int : 450 ms NORMAL SINUS RHYTHM RIGHT BUNDLE BRANCH BLOCK ABNORMAL ECG Confirmed by FLOWER GONZALEZ MD ([id number] on 09/28/2016 9:48:43 AM Referred By: JOSSE Confirmed By:FLOWER GONZALEZ MD
[2016-09-28] MEDS: methylPREDNISolone NA SUCC 40 MG/1 ML VIAL IVPB SCH ×3 (09:52→21:27)
[2016-09-28] MEDS: FAMOTIDINE 20 MG/50 ML IVPB 50 ML IVPB SCH ×2 (09:54→21:26)
[2016-09-28] MEDS ORDERED: PT OWN MED DRAWER 7, Y5N ONE (10:15)
[2016-09-28] MEDS: LEVOTHYROXINE SODIUM 100 MCG VIAL IVPUSH SCH (10:24)
[2016-09-28] MEDS: CLOPIDOGREL BISULFATE 75 MG TABLET (FP) PO SCH (10:29)
[2016-09-28] MEDS: ASPIRIN 81 MG CHEWABLE TABLETS PO SCH (10:29)
--- NOTE | 2016-09-28 10:58 | PN ---
Teaching Attending Note Name of Resident: Rico Davila ATTENDING PHYSICIAN STATEMENT I saw and evaluated the patient. I reviewed the resident's note and discussed the case with the resident. I agree with the resident's findings and plan as documented. SUBJECTIVE: Patient seen and examined in the ICU. Currently extubated on BiPAP. Awake and alert. Denies CP or SOB. Vascular follow up noted. OBJECTIVE: Intake & Output 09/25/16 09/26/16 09/27/16 09/28/16 23:59 23:59 23:59 23:59 Intake Total 20999 3543 575 Output Total 3125 1850 550 Balance 05159 1693 25 Weight 238 lb 12.17 oz 239 lb 7 oz Last Vital Signs Temp Pulse Resp BP Pulse Ox 98.2 F 94 H 18 137/77 98 09/28/16 06:00 09/28/16 07:00 09/28/16 07:00 09/28/16 07:00 09/28/16 06:20 Active Medications Albuterol Sulfate (Ventolin 0.083% Nebulizer Soln -) 1 amp NEB Q4H PRN PRN Reason: SHORT OF BREATH/WHEEZING Arformoterol Tartrate (Brovana (Restricted To Pulmonology/Resp) -) 1 amp NEB BID [facility]I Aspirin (Asa -) 81 mg PO DAILY [facility] Last Admin: 09/28/16 10:29 Dose: 81 mg Clopidogrel Bisulfate (Plavix -) 75 mg PO DAILY [facility] Last Admin: 09/28/16 10:29 Dose: 75 mg Hydromorphone HCl (Dilaudid Injection -) 0.5 mg IVPB Q4H PRN PRN Reason: PAIN Last Admin: 09/28/16 06:34 Dose: 0.5 mg Famotidine/Sodium Chloride (Pepcid 20 Mg Premixed Ivpb -) 50 mls @ 100 mls/hr IVPB BID [facility] Last Admin: 09/28/16 09:54 Dose: 100 mls/hr Dextrose/Sodium Chloride (D5-Ns -) 1,000 mls @ 75 mls/hr IV ASDIR TOI Levothyroxine Sodium (Synthroid Injection -) 75 mcg IVPUSH DAILY [facility] Last Admin: 09/28/16 10:24 Dose: 75 mcg Methylprednisolone Sodium Succinate (Solu-Medrol -) 40 mg IVPB BID [facility] Last Admin: 09/28/16 10:05 Dose: 40 mg Nicotine (Nicoderm Patch -) 14 mg TD DAILY [facility] Ondansetron HCl (Zofran Injection) 4 mg IVPB Q6H PRN PRN Reason: NAUSEA Last Admin: 09/28/16 00:00 Dose: 4 mg Gen: Extubated on BiPAP Heart: RRR Lung: scattered rhonchi Abd: soft, nontender Ext: no edema Laboratory Results - last 24 hr 09/28/16 09/28/16 09/28/16 05:10 05:10 05:10 WBC 15.0 H RBC 4.32 Hgb 13.4 Hct 39.8 MCV 91.9 MCHC 33.8 RDW 14.6 Plt Count 60 L D MPV 9.8 Neutrophils % 86.4 H Lymphocytes % 4.4 L D Monocytes % 8.8 Eosinophils % 0.0 D Basophils % 0.4 INR 1.29 H Puncture Site ABG pH ABG pCO2 at Pt Temp ABG pO2 at Pt Temp ABG HCO3 ABG O2 Sat (Measured) ABG O2 Content ABG Base Excess Diogo Test O2 Delivery Device Oxygen Flow Rate Vent Mode Vent Rate Mechanical Rate PEEP Pressure Support Vent Sodium 143 Potassium 4.8 Chloride 108 H Carbon Dioxide 26 D Anion Gap 9 BUN 28 H Creatinine 2.4 H Creat Clearance w eGFR 26.67 Random Glucose 83 D Lactic Acid Calcium 7.5 L Phosphorus 3.9 D Magnesium 1.3 L D Total Bilirubin 0.3 AST 55 H D ALT 20 Alkaline Phosphatase 43 L Creatine Kinase 701 H D CK-MB (CK-2) Rel Index Troponin I 0.07 H D Total Protein 4.8 L Albumin 2.1 L 09/28/16 09/28/16 09/28/16 05:10 05:10 07:30 WBC RBC Hgb Hct MCV MCHC RDW Plt Count MPV Neutrophils % Lymphocytes % Monocytes % Eosinophils % Basophils % INR Puncture Site Arterial line ABG pH 7.30 L ABG pCO2 at Pt Temp 48.0 H ABG pO2 at Pt Temp 89.4 D ABG HCO3 22.9 ABG O2 Sat (Measured) 97.0 ABG O2 Content 18.2 ABG Base Excess -3.2 L Diogo Test Not applicable O2 Delivery Device Bipap Oxygen Flow Rate 50% Vent Mode S/t Vent Rate 8 Mechanical Rate Bipap PEEP 0.0 Pressure Support Vent Ipap 14/epap 5 Sodium Potassium Chloride Carbon Dioxide Anion Gap BUN Creatinine Creat Clearance w eGFR Random Glucose Lactic Acid 1.4 Calcium Phosphorus Magnesium Total Bilirubin AST ALT Alkaline Phosphatase Creatine Kinase CK-MB (CK-2) Rel Index 2.0 Troponin I Total Protein Albumin ASSESSMENT AND PLAN: s/p Open Juxtarenal AAA repair, Left Femoral Bypass, Right Iliac Bypass Acute Hypercapneic Respiratory Failure Shock - ?Distributive Acute on Chronic Renal Failure Metablolic/Lactic Acidosis COPD CAD +Troponins likely Demand Ischemia Hypothyroidism - VM O2 alternating with NIPPV - IVF to keep CVP 8-12 - ASA, plavix - beta blockade when BP tolerates - D/C bicarb gtt for now - PO when OK with surgery - pain control - incentive spirometry - DVT/GI prophylaxis - continue ICU monitoring Critical care time spent in reviewing chart, evaluating patient and formulating plan 40 min
[2016-09-28] MEDS ORDERED: DEXTROSE 5%-NORMAL SALINE 1,000 ML IV SCH (11:00)
[2016-09-28] MEDS: ARFORMOTEROL TARTRATE 15 MCG/2 ML VIAL NEB SCH ×2 (11:10→21:59)
--- NOTE | 2016-09-28 11:14 | PN ---
Progress Note, Physician History of Present Illness: Hemodynamics and sensorium improved with resolving acid base imbalance. - Current Medication List Current Medications: Active Medications Albuterol Sulfate (Ventolin 0.083% Nebulizer Soln -) 1 amp NEB Q4H PRN PRN Reason: SHORT OF BREATH/WHEEZING Arformoterol Tartrate (Brovana (Restricted To Pulmonology/Resp) -) 1 amp NEB BID [facility] Aspirin (Asa -) 81 mg PO DAILY [facility] Last Admin: 09/28/16 10:29 Dose: 81 mg Clopidogrel Bisulfate (Plavix -) 75 mg PO DAILY [facility] Last Admin: 09/28/16 10:29 Dose: 75 mg Hydromorphone HCl (Dilaudid Injection -) 0.5 mg IVPB Q4H PRN PRN Reason: PAIN Last Admin: 09/28/16 06:34 Dose: 0.5 mg Famotidine/Sodium Chloride (Pepcid 20 Mg Premixed Ivpb -) 50 mls @ 100 mls/hr IVPB BID [facility] Last Admin: 09/28/16 09:54 Dose: 100 mls/hr Dextrose/Sodium Chloride (D5-Ns -) 1,000 mls @ 75 mls/hr IV ASDIR [facility] Levothyroxine Sodium (Synthroid Injection -) 75 mcg IVPUSH DAILY [facility] Last Admin: 09/28/16 10:24 Dose: 75 mcg Methylprednisolone Sodium Succinate (Solu-Medrol -) 40 mg IVPB BID [facility] Last Admin: 09/28/16 10:05 Dose: 40 mg Nicotine (Nicoderm Patch -) 14 mg TD DAILY [facility] Ondansetron HCl (Zofran Injection) 4 mg IVPB Q6H PRN PRN Reason: NAUSEA Last Admin: 09/28/16 00:00 Dose: 4 mg - Objective Vital Signs: Vital Signs Temperature 98.2 F 09/28/16 06:00 Pulse Rate 94 H 09/28/16 07:00 Respiratory Rate 18 09/28/16 07:00 Blood Pressure 137/77 09/28/16 07:00 O2 Sat by Pulse Oximetry (%) 98 09/28/16 06:20 Constitutional: Yes: No Distress, Calm Neck: Yes: Supple Cardiovascular: Yes: Regular Rate and Rhythm Respiratory: Yes: Regular, Diminished, On Nasal O2 Gastrointestinal: Yes: Soft, Hypoactive Bowel Sounds Edema: No Labs: CBC, BMP 09/28/16 05:10 09/28/16 05:10 INR, PTT INR 1.29 (0.82-1.09) H 09/28/16 05:10 - ....Imaging Chest X-ray: Report Reviewed (Mild left ATX) Problem List - Problems (1) Abdominal aortic aneurysm Code(s): I71.4 - ABDOMINAL AORTIC ANEURYSM, WITHOUT RUPTURE Qualifiers: Presence of rupture: without rupture Qualified Code(s): I71.4 - Abdominal aortic aneurysm, without rupture (2) COPD (chronic obstructive pulmonary disease) Code(s): J44.9 - CHRONIC OBSTRUCTIVE PULMONARY DISEASE, UNSPECIFIED Qualifiers : COPD type: unspecified COPD Qualified Code(s): J44.9 - Chronic obstructive pulmonary disease, unspecified (3) Chronic kidney disease, stage 2 (mild) Code(s): N18.2 - CHRONIC KIDNEY DISEASE, STAGE 2 (MILD) (4) Acute hypercapnic respiratory failure Code(s): J96.02 - ACUTE RESPIRATORY FAILURE WITH HYPERCAPNIA (5) Coronary artery disease Code(s): I25.10 - ATHSCL HEART DISEASE OF [place] CORONARY ARTERY W/O ANG PCTRS Qualifiers: Coronary Disease-Associated Artery/Lesion type: [place] artery [place] vs. transplanted heart: [place] heart Associated angina: without angina Qualified Code(s): I25.10 - Atherosclerotic heart disease of [place] coronary artery without angina pectoris (6) Status post insertion of drug eluting coronary artery stent Code(s): Z95.5 - PRESENCE OF CORONARY ANGIOPLASTY IMPLANT AND GRAFT (7) Hyperlipidemia LDL goal <100 Code(s): E78.5 - HYPERLIPIDEMIA, UNSPECIFIED (8) Hypothyroidism Code(s): E03.9 - HYPOTHYROIDISM, UNSPECIFIED Qualifiers: Hypothyroidism type: unspecified Qualified Code(s): E03.9 - Hypothyroidism, unspecified (9) S/P aortic aneurysm repair Code(s): Z98.890 - OTHER SPECIFIED POSTPROCEDURAL STATES Z86.79 - PERSONAL HISTORY OF OTHER DISEASES OF THE CIRCULATORY SYSTEM Assessment/Plan 08/16/2016 Echo: Normal LV size and fxn, mild cLVH, mild MR 08/21/2016 Regadenoson Myoview: Small mild inferior ischemia, LVEF 80% 09/26/2016 Echocardiogram: Poor windows 1. Acute hypercapneic respiratory failure post-op resolved 2. s/p open repair of 6 cm juxtarenal abdominal aortic aneurysm, left femoral bypass, right iliac bypass. 3. CAD s/p NAIF LAD, demand ischemia 4. COPD 5. Acute on CKD with improving lactic acidosis 6. Labile HTN stabilized 7. Hyperlipidemia 8. Sinus tachycardia 9. Hypothyroidism 10. Thrombocytopenia P:1. Wean FIO2 as tolerated, BD as needed, steroid taper 2. Trops have peaked, monitor renal function and output, monitor Hgb post transfusion 3. D/c IVF, diuresis as needed resume Crestor 20 qd and Bystolic 5 qd as hemodynamics have stabilized 4. ASA 81 qd, Plavix 75 qd, GI and DVT prophylaxis, Lovenox d/deepthi, monitor plt count 5. OOB to chair
[2016-09-28] MEDS ORDERED: SIMETHICONE 80 MG TAB.CHEW (FP) PO PRN (11:23)
--- NOTE | 2016-09-28 12:07 | PATH ---
Surgical Pathology Report Patient Name: Huy HENRY Med. Rec. 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 Specimen(s) Received CONTENTS OF AORTA Clinical History Abdominal aortic aneurysm Final Diagnosis CONTENTS OF AORTA, OPEN ABDOMINAL AORTIC ANEURYSM REPAIR: THROMBUS. Electronically Signed Brian Guerra M.D. Gross Description Received in formalin labeled "contents of aorta" is a 9 cm in length x 5 cm in diameter julien, cylindrical, portion of rubbery, laminated thrombus. No calcifications are identified. [facility] sections are submitted in 2 cassettes. /09/27/2016 saudi09/27/2016
[2016-09-28 13:39] LABS: MCHC 33.6 g/dl (32.0-35.9); MEAN CELL VOLUME 92.3 fl (80-96); MEAN PLT VOLUME 9.3 fl (7.5-11.1); PLATELET COUNT 61 K/MM3 (134-434); RDW 14.6 % (11.9-15.9); WHITE BLOOD COUNT 15.5 K/mm3 (4.0-10.0)
--- NOTE | 2016-09-28 14:55 | PN ---
Progress Note, Physician History of Present Illness: Pt seen and examined at bedside. He is now extubated. He is awake and alert. His family are at bedside. - Current Medication List Current Medications: Active Medications Albuterol Sulfate (Ventolin 0.083% Nebulizer Soln -) 1 amp NEB Q4H PRN PRN Reason: SHORT OF BREATH/WHEEZING Arformoterol Tartrate (Brovana (Restricted To Pulmonology/Resp) -) 1 amp NEB BID [facility] Last Admin: 09/28/16 11:10 Dose: 1 amp Aspirin (Asa -) 81 mg PO DAILY [facility] Last Admin: 09/28/16 10:29 Dose: 81 mg Clopidogrel Bisulfate (Plavix -) 75 mg PO DAILY [facility] Last Admin: 09/28/16 10:29 Dose: 75 mg Hydromorphone HCl (Dilaudid Injection -) 0.5 mg IVPB Q4H PRN PRN Reason: PAIN Last Admin: 09/28/16 14:20 Dose: 0.5 mg Famotidine/Sodium Chloride (Pepcid 20 Mg Premixed Ivpb -) 50 mls @ 100 mls/hr IVPB BID [facility] Last Admin: 09/28/16 09:54 Dose: 100 mls/hr Dextrose/Sodium Chloride (D5-Ns -) 1,000 mls @ 75 mls/hr IV ASDIR [facility] Last Admin: 09/28/16 11:50 Dose: 75 mls/hr Levothyroxine Sodium (Synthroid Injection -) 75 mcg IVPUSH DAILY [facility] Last Admin: 09/28/16 10:24 Dose: 75 mcg Methylprednisolone Sodium Succinate (Solu-Medrol -) 40 mg IVPB BID [facility] Last Admin: 09/28/16 10:05 Dose: 40 mg Nebivolol (Bystolic -) 5 mg PO DAILY [facility] Nicotine (Nicoderm Patch -) 14 mg TD DAILY [facility] Ondansetron HCl (Zofran Injection) 4 mg IVPB Q6H PRN PRN Reason: NAUSEA Last Admin: 09/28/16 00:00 Dose: 4 mg Rosuvastatin Calcium (Crestor -) 20 mg PO HS [facility]I Simethicone (Mylicon -) 80 mg PO QID PRN PRN Reason: GAS Last Admin: 09/28/16 13:15 Dose: 80 mg - Objective Vital Signs: Vital Signs Temperature 99 F 09/28/16 12:00 Pulse Rate 98 H 09/28/16 12:00 Respiratory Rate 18 09/28/16 12:00 Blood Pressure 142/75 09/28/16 12:00 O2 Sat by Pulse Oximetry (%) 98 09/28/16 06:20 Constitutional: Yes: Calm Eyes: Yes: Conjunctiva Clear HENT: Yes: Atraumatic Neck: Yes: Supple Cardiovascular: Yes: S1, S2 Respiratory: Yes: Diminished, On Nasal O2 Gastrointestinal: Yes: Soft, Abdomen, Obese Genitourinary: Yes: Lundy Present Musculoskeletal: Yes: WNL Edema: Yes Edema: LLE: Trace, RLE: Trace Wound/Incision: Yes: Dressing Dry and Intact Neurological: Yes: Oriented Psychiatric: Yes: Oriented Labs: CBC, BMP 09/28/16 13:26 09/28/16 05:10 INR, PTT INR 1.29 (0.82-1.09) H 09/28/16 05:10 - ....Imaging Chest X-ray: Report Reviewed Problem List - Problems (1) Abdominal aortic aneurysm Code(s): I71.4 - ABDOMINAL AORTIC ANEURYSM, WITHOUT RUPTURE Qualifiers: Presence of rupture: without rupture Qualified Code(s): I71.4 - Abdominal aortic aneurysm, without rupture (2) Acute hypercapnic respiratory failure Code(s): J96.02 - ACUTE RESPIRATORY FAILURE WITH HYPERCAPNIA (3) COPD (chronic obstructive pulmonary disease) Code(s): J44.9 - CHRONIC OBSTRUCTIVE PULMONARY DISEASE, UNSPECIFIED Qualifiers : COPD type: unspecified COPD Qualified Code(s): J44.9 - Chronic obstructive pulmonary disease, unspecified (4) Chronic kidney disease, stage 2 (mild) Code(s): N18.2 - CHRONIC KIDNEY DISEASE, STAGE 2 (MILD) (5) Coronary artery disease Code(s): I25.10 - ATHSCL HEART DISEASE OF [place] CORONARY ARTERY W/O ANG PCTRS Qualifiers: Coronary Disease-Associated Artery/Lesion type: [place] artery [place] vs. transplanted heart: [place] heart Associated angina: without angina Qualified Code(s): I25.10 - Atherosclerotic heart disease of [place] coronary artery without angina pectoris (6) HELLEN (acute kidney injury) Code(s): N17.9 - ACUTE KIDNEY FAILURE, UNSPECIFIED (7) Hyperkalemia Code(s): E87.5 - HYPERKALEMIA (8) Metabolic acidemia Code(s): E87.2 - ACIDOSIS Assessment/Plan Current Medications Generic Name Dose Route Start Last Admin Trade Name Freq PRN Reason Stop Dose Admin Albuterol Sulfate 1 amp 09/28/16 05:37 Ventolin 0.083% Nebulizer Soln - NEB Q4H PRN SHORT OF BREATH/WHEEZING Arformoterol Tartrate 1 amp 09/28/16 10:30 09/28/16 11:10 Brovana (Restricted To Pulmonology/Resp) - NEB 1 amp BID TOI Administration Aspirin 81 mg 09/27/16 10:00 09/28/16 10:29 Asa - PO 81 mg DAILY TOI Administration Clopidogrel Bisulfate 75 mg 09/27/16 10:00 09/28/16 10:29 Plavix - PO 75 mg DAILY TOI Administration Hydromorphone HCl 0.5 mg 09/26/16 19:02 09/28/16 14:20 Dilaudid Injection - IVPB 0.5 mg Q4H PRN Administration PAIN Famotidine/Sodium Chloride 50 mls @ 100 mls/hr 09/27/16 00:30 09/28/16 09:54 Pepcid 20 Mg Premixed Ivpb - IVPB 100 mls/hr BID TOI Administration Dextrose/Sodium Chloride 1,000 mls @ 75 mls/hr 09/28/16 11:00 09/28/16 11:50 D5-Ns - IV 75 mls/hr ASDIR TOI Administration Levothyroxine Sodium 75 mcg 09/27/16 06:30 09/28/16 10:24 Synthroid Injection - IVPUSH 75 mcg DAILY TOI Administration Methylprednisolone Sodium Succinate 40 mg 09/28/16 10:00 09/28/16 10:05 Solu-Medrol - IVPB 40 mg BID TOI Administration Nebivolol 5 mg 09/28/16 11:30 Bystolic - PO DAILY TOI Nicotine 14 mg 09/28/16 10:00 Nicoderm Patch - TD DAILY [facility] Ondansetron HCl 4 mg 09/27/16 22:38 09/28/16 00:00 Zofran Injection IVPB 4 mg Q6H PRN Administration NAUSEA Rosuvastatin Calcium 20 mg 09/28/16 22:00 Crestor - PO HS TOI Simethicone 80 mg 09/28/16 11:23 09/28/16 13:15 Mylicon - PO 80 mg QID PRN Administration GAS Impression 1. HELLEN 2. hyperkalemia 3. respiratory failure requiring intubation 4. metabolic and respiratory acidosis 5. labile HTN - pt is now hypotensive and on levophed 6. s/p AAA repair 7. hyperlipidemia 8. CAD Plan - continue to monitor renal function - repeat labs in am - can hold off fluids, can keep on maintenance - caution with lasix - monitor urine output - blood pressure stabilizing - should get a pheochromocytoma workup as well - cont with synthroid - will follow closely Dr Woods
[2016-09-28] MEDS: ONDANSETRON 4 MG/2 ML VIAL IVPB PRN ×2 (15:51)
[2016-09-28] MEDS: NICOTINE 14 MG/24 HOURS TOPICAL PATCH TD SCH (16:30)
[2016-09-28] MEDS ORDERED: ACETAMINOPHEN 1000 MG/100 ML VIAL (NON FORMULARY) IVPB ONE ×2 (17:21→20:00)
[2016-09-28] MEDS: NEBIVOLOL 5 MG TABLET (FP) PO SCH (17:37)
[2016-09-28] MEDS ORDERED: FUROSEMIDE 40 MG/4 ML INJECTABLE VIAL IVPUSH ONE (18:00)
[2016-09-28] MEDS: ROSUVASTATIN CA 20 MG TABLET (FP) PO SCH (21:27)
[2016-09-28] MEDS: morphine CARPU-JECT 2 MG/1 ML DISP.SYRIN IVPUSH PRN (21:28)
[2016-09-29] MEDS: morphine CARPU-JECT 2 MG/1 ML DISP.SYRIN IVPUSH PRN ×2 (02:46→09:49)
[2016-09-29 06:31] LABS: MCH 30.6 pg (25.7-33.7); MCHC 33.3 g/dl (32.0-35.9); MEAN CELL VOLUME 91.8 fl (80-96); PLATELET COUNT 80 K/MM3 (134-434); RDW 14.2 % (11.9-15.9); WHITE BLOOD COUNT 14.8 K/mm3 (4.0-10.0)
[2016-09-29 06:42] LABS: INR 1.33 (0.82-1.09); PROTHROMBIN TIME (PATIENT) 14.7 SEC (9.98-11.88)
[2016-09-29 07:02] LABS: ALBUMIN 2.4 g/dl (3.4-5.0); BILIRUBIN,TOTAL 0.5 mg/dL (0.2-1.0); CALCIUM 8.1 mg/dL (8.5-10.1); COCKROFT - GAULT 48.12; CREATININE 2.1 mg/dL (0.7-1.3); MAGNESIUM 1.9 mg/dL (1.8-2.4); PHOSPHOROUS 2.4 mg/dL (2.5-4.9); TOT PROT 5.6 g/dl (6.4-8.2)
[2016-09-29 07:39] LABS: ARTERIAL BLD GAS O2 SATURATION 94.2 % (90-98.9); ARTERIAL BLOOD GAS BASE EXCESS 3.4 meq/l (-2-2); ARTERIAL BLOOD GAS HCO3 27.8 meq/L (22-26); ARTERIAL BLOOD GAS PO2 69.1 mmHg (70-100); ARTERIAL BLOOD GAS pH 7.42 (7.35-7.45)
[2016-09-29 07:40] LABS: ALLENS TEST POSITIVE; ART PUNCT SITE RIGHT RADIAL; LPM/O2% 5L; PT. ON O2? YES; TYPE OF O2 N/C
[2016-09-29] MEDS: NICOTINE 14 MG/24 HOURS TOPICAL PATCH TD SCH (09:34)
[2016-09-29] MEDS: FAMOTIDINE 20 MG/50 ML IVPB 50 ML IVPB SCH ×2 (09:34→21:17)
[2016-09-29] MEDS: methylPREDNISolone NA SUCC 40 MG/1 ML VIAL IVPB SCH ×2 (09:35→21:17)
--- NOTE | 2016-09-29 09:40 | PN ---
Progress Note, Physician History of Present Illness: Renal F/U Pt remains extubated He was OOB in chair earlier Lundy remains in place since he had some urinary retention Azotemia is better today - Current Medication List Current Medications: Active Medications Albuterol Sulfate (Ventolin 0.083% Nebulizer Soln -) 1 amp NEB Q4H PRN PRN Reason: SHORT OF BREATH/WHEEZING Arformoterol Tartrate (Brovana (Restricted To Pulmonology/Resp) -) 1 amp NEB BID [facility] Last Admin: 09/28/16 21:59 Dose: 1 amp Aspirin (Asa -) 81 mg PO DAILY [facility] Last Admin: 09/28/16 10:29 Dose: 81 mg Clopidogrel Bisulfate (Plavix -) 75 mg PO DAILY [facility] Last Admin: 09/28/16 10:29 Dose: 75 mg Hydromorphone HCl (Dilaudid Injection -) 0.5 mg IVPB Q4H PRN PRN Reason: PAIN Last Admin: 09/28/16 14:20 Dose: 0.5 mg Famotidine/Sodium Chloride (Pepcid 20 Mg Premixed Ivpb -) 50 mls @ 100 mls/hr IVPB BID [facility] Last Admin: 09/28/16 21:26 Dose: 100 mls/hr Dextrose/Sodium Chloride (D5-Ns -) 1,000 mls @ 75 mls/hr IV ASDIR [facility] Last Admin: 09/28/16 11:50 Dose: 75 mls/hr Levothyroxine Sodium (Synthroid Injection -) 75 mcg IVPUSH DAILY [facility] Last Admin: 09/28/16 10:24 Dose: 75 mcg Methylprednisolone Sodium Succinate (Solu-Medrol -) 40 mg IVPB BID [facility] Last Admin: 09/28/16 21:27 Dose: 40 mg Morphine Sulfate (Morphine Injection -) 1 mg IVPUSH Q4H PRN PRN Reason: PAIN Last Admin: 09/29/16 02:46 Dose: 1 mg Nebivolol (Bystolic -) 5 mg PO DAILY [facility] Last Admin: 09/28/16 17:37 Dose: 5 mg Nicotine (Nicoderm Patch -) 14 mg TD DAILY [facility] Last Admin: 09/28/16 16:30 Dose: 14 mg Ondansetron HCl (Zofran Injection) 4 mg IVPB Q6H PRN PRN Reason: NAUSEA Last Admin: 09/28/16 15:51 Dose: 4 mg Rosuvastatin Calcium (Crestor -) 20 mg PO HS [facility] Last Admin: 09/28/16 21:27 Dose: 20 mg Simethicone (Mylicon -) 80 mg PO QID PRN PRN Reason: GAS Last Admin: 09/28/16 13:15 Dose: 80 mg - Objective Vital Signs: Vital Signs Temperature 98.8 F 09/29/16 08:00 Pulse Rate 80 09/29/16 08:00 Respiratory Rate 20 09/29/16 08:00 Blood Pressure 126/67 09/29/16 08:00 O2 Sat by Pulse Oximetry (%) 94 L 09/28/16 21:00 Constitutional: Yes: No Distress Neck: Yes: Other (Right central line) Cardiovascular: Yes: Other (Distant S1S2) Respiratory: Yes: CTA Bilaterally, Other (Decreased BS at bases) Gastrointestinal: Yes: Soft, Other (Dressing clean and dry in place). No: Tenderness, Rebound Edema: No Labs: CBC, BMP 09/29/16 05:20 09/29/16 05:20 INR, PTT INR 1.33 (0.82-1.09) H 09/29/16 05:20 - ....Imaging Chest X-ray: Report Reviewed, Image Reviewed Assessment/Plan Impression 1. HELLEN on CKD begining to improve and returning to baseline 2. S/P hyperkalemia 3. S/P AAA repair 4. metabolic and respiratory acidosis 5. S/P Hypotension 6. hyperlipidemia 7. B/L effusions and atelectasis 8. CAD 9. AUR Plan Incentive Spirometry Cautious IVF Reduce IVF once pt is no longer NPO and able to tolerate feeds Voiding trial as per primary care UA Dr Romero
[2016-09-29] MEDS: LEVOTHYROXINE SODIUM 100 MCG VIAL IVPUSH SCH (09:42)
[2016-09-29] MEDS: CLOPIDOGREL BISULFATE 75 MG TABLET (FP) PO SCH (09:54)
[2016-09-29] MEDS: NEBIVOLOL 5 MG TABLET (FP) PO SCH (09:54)
[2016-09-29] MEDS: ASPIRIN 81 MG CHEWABLE TABLETS PO SCH (09:54)
[2016-09-29] MEDS: ARFORMOTEROL TARTRATE 15 MCG/2 ML VIAL NEB SCH ×2 (09:55→21:43)
--- NOTE | 2016-09-29 10:04 | PN ---
Progress Note (short form) - Note Progress Note: Seen and examined in the ICU started on ASA, plavix, BB delirious BP stable off pressors OOB to chair d/c NGT d/c standing fluids and given lasix Current Medications Albuterol Sulfate (Ventolin 0.083% Nebulizer Soln -) 1 amp NEB Q4H PRN PRN Reason: SHORT OF BREATH/WHEEZING Arformoterol Tartrate (Brovana (Restricted To Pulmonology/Resp) -) 1 amp NEB BID [facility] Last Admin: 09/28/16 21:59 Dose: 1 amp Aspirin (Asa -) 81 mg PO DAILY [facility] Last Admin: 09/29/16 09:54 Dose: 81 mg Clopidogrel Bisulfate (Plavix -) 75 mg PO DAILY [facility] Last Admin: 09/29/16 09:54 Dose: 75 mg Hydromorphone HCl (Dilaudid Injection -) 0.5 mg IVPB Q4H PRN PRN Reason: PAIN Last Admin: 09/28/16 14:20 Dose: 0.5 mg Famotidine/Sodium Chloride (Pepcid 20 Mg Premixed Ivpb -) 50 mls @ 100 mls/hr IVPB BID [facility] Last Admin: 09/29/16 09:34 Dose: 100 mls/hr Dextrose/Sodium Chloride (D5-Ns -) 1,000 mls @ 75 mls/hr IV ASDIR [facility] Last Admin: 09/28/16 11:50 Dose: 75 mls/hr Levothyroxine Sodium (Synthroid Injection -) 75 mcg IVPUSH DAILY [facility] Last Admin: 09/29/16 09:42 Dose: 75 mcg Methylprednisolone Sodium Succinate (Solu-Medrol -) 40 mg IVPB BID [facility] Last Admin: 09/29/16 09:35 Dose: 40 mg Morphine Sulfate (Morphine Injection -) 1 mg IVPUSH Q4H PRN PRN Reason: PAIN Last Admin: 09/29/16 09:49 Dose: 1 mg Nebivolol (Bystolic -) 5 mg PO DAILY [facility] Last Admin: 09/29/16 09:54 Dose: 5 mg Nicotine (Nicoderm Patch -) 14 mg TD DAILY [facility] Last Admin: 09/29/16 09:34 Dose: 14 mg Ondansetron HCl (Zofran Injection) 4 mg IVPB Q6H PRN PRN Reason: NAUSEA Last Admin: 09/28/16 15:51 Dose: 4 mg Rosuvastatin Calcium (Crestor -) 20 mg PO HS [facility] Last Admin: 09/28/16 21:27 Dose: 20 mg Simethicone (Mylicon -) 80 mg PO QID PRN PRN Reason: GAS Last Admin: 09/28/16 13:15 Dose: 80 mg Vital Signs Period Temp Pulse Resp BP Sys/Simmons Pulse Ox Last 24 Hr 97.8 F-99 F 73-109 16-25 109-155/62-81 93-94 Intake & Output 09/26/16 09/27/16 09/28/16 09/29/16 23:59 23:59 23:59 23:59 Intake Total 54128 3543 2091 525 Output Total 3128 5939 4890 2000 Balance [id number] 8023 -5343 -9846 Weight 108.3 kg 108.607 kg Exam: Neuro: Awake and alert, confused at times HEENT: [place] CV: RRR Pulm: exp wheeze Abd: obese, soft, mild tenderness around surgical site. dressing c/d/i Ext: +1 LE edema CBCD WBC 14.8 K/mm3 (4.0-10.0) H 09/29/16 05:20 RBC 4.11 M/mm3 (4.00-5.60) 09/29/16 05:20 Hgb 12.6 GM/dL (11.7-16.9) 09/29/16 05:20 Hct 37.7 % (35.4-49) 09/29/16 05:20 MCV 91.8 fl (80-96) 09/29/16 05:20 MCHC 33.3 g/dl (32.0-35.9) 09/29/16 05:20 RDW 14.2 % (11.9-15.9) 09/29/16 05:20 Plt Count 80 K/MM3 (134-434) L D 09/29/16 05:20 MPV 10.0 fl (7.5-11.1) 09/29/16 05:20 CMP Sodium 142 mmol/L (136-145) 09/29/16 05:20 Potassium 4.1 mmol/L (3.5-5.1) 09/29/16 05:20 Chloride 104 mmol/L (98-107) 09/29/16 05:20 Carbon Dioxide 30 mmol/L (21-32) 09/29/16 05:20 Anion Gap 8 (8-16) 09/29/16 05:20 BUN 31 mg/dL (7-18) H 09/29/16 05:20 Creatinine 2.1 mg/dL (0.7-1.3) H 09/29/16 05:20 Creat Clearance w eGFR 31.11 (>60) 09/29/16 05:20 Random Glucose 130 mg/dL (74-106) H D 09/29/16 05:20 Calcium 8.1 mg/dL (8.5-10.1) L 09/29/16 05:20 Total Bilirubin 0.5 mg/dL (0.2-1.0) D 09/29/16 05:20 AST 64 U/L (15-37) H 09/29/16 05:20 ALT 21 U/L (12-78) 09/29/16 05:20 Alkaline Phosphatase 49 U/L (45-117) 09/29/16 05:20 Total Protein 5.6 g/dl (6.4-8.2) L 09/29/16 05:20 Albumin 2.4 g/dl (3.4-5.0) L 09/29/16 05:20 CARDIAC ENZYMES Creatine Kinase 701 IU/L (39-308) H D 09/28/16 05:10 Troponin I 0.07 ng/ml (0.00-0.05) H D 09/28/16 05:10 CXR: bilateral effusions ASSESSMENT AND PLAN: s/p Open Juxtarenal AAA repair, Left Femoral Bypass, Right Iliac Bypass Acute Hypercapneic Respiratory Failure Resolved Shock - ?Distributive Acute on Chronic Renal Failure Metablolic/Lactic Acidosis COPD CAD +Troponins likely Demand Ischemia Hypothyroidism - O2 for sat >90% - NIPPV as needed - lasix for O>I - ASA, plavix - cont BB - steroids taper - PO when OK with surgery - pain control - incentive spirometry - DVT/GI prophylaxis Boerem ACNP Pulm/CCM CCT: 35m
[2016-09-29] MEDS ORDERED: DEXTROSE 5%-NORMAL SALINE 1,000 ML IV SCH (10:19)
[2016-09-29 11:57] LABS: URINE APPEARANCE CLEAR; URINE BILIRUBIN NEGATIVE (NEGATIVE); URINE COLOR LTYELLOW; URINE GLUCOSE (UA) NEGATIVE (NEGATIVE); URINE KETONE NEGATIVE (NEGATIVE); URINE LEUK ESTERASE NEGATIVE (NEGATIVE); URINE NITRITE NEGATIVE (NEGATIVE); URINE UROBILINOGEN NEGATIVE E.U./dl (0.2-1.0)
--- NOTE | 2016-09-29 12:01 | PN ---
Progress Note (short form) - Note Progress Note: POD 3 Confused earlier today, received morphine and is calmer now. VSS Abd full, soft Wound dry Palpable femoral and DP pulses bilaterally. Less edema Hgb stable, Platelets 80K Cr 2.1 (lower) Stable course, needs continued diuresis IV Lasix Resume Lovenox OOB Start PO D/C IV
[2016-09-29] MEDS ORDERED: OXYCODONE/APAP 5/325MG COMBO TABLET PO PRN ×2 (12:04)
[2016-09-29 12:39] LABS: URINE BLOOD 2+ (NEGATIVE); URINE PROTEIN 1+ (NEGATIVE)
[2016-09-29] MEDS ORDERED: oxyCODONE HCL 5 MG TABLET PO PRN ×2 (12:39→12:45)
[2016-09-29] MEDS ORDERED: ACETAMINOPHEN 325 MG TABLET (FP) PO PRN ×2 (12:39→12:45)
[2016-09-29 12:41] LABS: GRANULAR CASTS 4 /lpf; URINE MUCUS RARE; URINE RBC 80 /hpf (0-3); URINE WBC 3 /hpf (3-5)
[2016-09-29] MEDS ORDERED: FUROSEMIDE 20 MG TABLET (FP) PO ONE (13:00)
--- NOTE | 2016-09-29 15:33 | PN ---
Progress Note, Physician Chief Complaint: Events noted Not in distress History of Present Illness: Patient was seen and examined in ICU. Awake and alert. Sitting in chair. Chart was reviewed Post op AAA repair, post peripheral bypass - Current Medication List Current Medications: Active Medications Acetaminophen (Tylenol -) 325 mg PO Q4H PRN PRN Reason: FOR PAIN LEVEL 1-5 Stop: 10/02/16 12:38 Acetaminophen (Tylenol -) 650 mg PO Q4H PRN PRN Reason: FOR PAIN LEVEL 6-10 Stop: 10/02/16 12:44 Albuterol Sulfate (Ventolin 0.083% Nebulizer Soln -) 1 amp NEB Q4H PRN PRN Reason: SHORT OF BREATH/WHEEZING Arformoterol Tartrate (Brovana (Restricted To Pulmonology/Resp) -) 1 amp NEB BID [facility] Last Admin: 09/29/16 09:55 Dose: 1 amp Aspirin (Asa -) 81 mg PO DAILY [facility] Last Admin: 09/29/16 09:54 Dose: 81 mg Clopidogrel Bisulfate (Plavix -) 75 mg PO DAILY [facility] Last Admin: 09/29/16 09:54 Dose: 75 mg Enoxaparin Sodium (Lovenox -) 40 mg SQ DAILY [facility] Hydromorphone HCl (Dilaudid Injection -) 0.5 mg IVPB Q4H PRN PRN Reason: PAIN Last Admin: 09/28/16 14:20 Dose: 0.5 mg Famotidine/Sodium Chloride (Pepcid 20 Mg Premixed Ivpb -) 50 mls @ 100 mls/hr IVPB BID [facility] Last Admin: 09/29/16 09:34 Dose: 100 mls/hr Levothyroxine Sodium (Synthroid Injection -) 75 mcg IVPUSH DAILY [facility] Last Admin: 09/29/16 09:42 Dose: 75 mcg Methylprednisolone Sodium Succinate (Solu-Medrol -) 20 mg IVPB BID [facility] Morphine Sulfate (Morphine Injection -) 1 mg IVPUSH Q4H PRN PRN Reason: PAIN Last Admin: 09/29/16 09:49 Dose: 1 mg Nebivolol (Bystolic -) 5 mg PO DAILY [facility] Last Admin: 09/29/16 09:54 Dose: 5 mg Nicotine (Nicoderm Patch -) 14 mg TD DAILY [facility] Last Admin: 09/29/16 09:34 Dose: 14 mg Ondansetron HCl (Zofran Injection) 4 mg IVPB Q6H PRN PRN Reason: NAUSEA Last Admin: 09/28/16 15:51 Dose: 4 mg Oxycodone HCl (Roxicodone -) 5 mg PO Q4H PRN PRN Reason: FOR PAIN LEVEL 1-5 Oxycodone HCl (Roxicodone -) 10 mg PO Q4H PRN PRN Reason: FOR PAIN LEVEL 6-10 Rosuvastatin Calcium (Crestor -) 20 mg PO HS [facility] Last Admin: 09/28/16 21:27 Dose: 20 mg Simethicone (Mylicon -) 80 mg PO QID PRN PRN Reason: GAS Last Admin: 09/28/16 13:15 Dose: 80 mg - Objective Vital Signs: Vital Signs Temperature 98.3 F 09/29/16 14:00 Pulse Rate 80 09/29/16 14:00 Respiratory Rate 20 09/29/16 14:00 Blood Pressure 104/76 09/29/16 14:00 O2 Sat by Pulse Oximetry (%) 92 L 09/29/16 11:15 Labs: CBC, BMP 09/29/16 05:20 09/29/16 05:20 INR, PTT INR 1.33 (0.82-1.09) H 09/29/16 05:20 Problem List - Problems (1) HELLEN (acute kidney injury) Code(s): N17.9 - ACUTE KIDNEY FAILURE, UNSPECIFIED (2) Abdominal aortic aneurysm Code(s): I71.4 - ABDOMINAL AORTIC ANEURYSM, WITHOUT RUPTURE Qualifiers: Presence of rupture: without rupture Qualified Code(s): I71.4 - Abdominal aortic aneurysm, without rupture (3) Acute hypercapnic respiratory failure Code(s): J96.02 - ACUTE RESPIRATORY FAILURE WITH HYPERCAPNIA (4) COPD (chronic obstructive pulmonary disease) Code(s): J44.9 - CHRONIC OBSTRUCTIVE PULMONARY DISEASE, UNSPECIFIED Qualifiers : COPD type: unspecified COPD Qualified Code(s): J44.9 - Chronic obstructive pulmonary disease, unspecified (5) Chronic kidney disease, stage 2 (mild) Code(s): N18.2 - CHRONIC KIDNEY DISEASE, STAGE 2 (MILD) (6) Coronary artery disease Code(s): I25.10 - ATHSCL HEART DISEASE OF [place] CORONARY ARTERY W/O ANG PCTRS Qualifiers: Coronary Disease-Associated Artery/Lesion type: [place] artery [place] vs. transplanted heart: [place] heart Associated angina: without angina Qualified Code(s): I25.10 - Atherosclerotic heart disease of [place] coronary artery without angina pectoris (7) Essential (primary) hypertension Code(s): I10 - ESSENTIAL (PRIMARY) HYPERTENSION (8) S/P aortic aneurysm repair Code(s): Z98.890 - OTHER SPECIFIED POSTPROCEDURAL STATES Z86.79 - PERSONAL HISTORY OF OTHER DISEASES OF THE CIRCULATORY SYSTEM (9) Status post insertion of drug eluting coronary artery stent Code(s): Z95.5 - PRESENCE OF CORONARY ANGIOPLASTY IMPLANT AND GRAFT Assessment/Plan 1. Acute hypercapneic respiratory failure post-op 2. Post open repair of 6 cm juxtarenal abdominal aortic aneurysm, left femoral bypass and right iliac bypass. 3. CAD s/p NAIF LAD - demand ischemia 4. COPD 5. Acute on CKD with improving lactic acidosis 6. Labile HTN 7. Hyperlipidemia 8. Hypothyroidism 9. Thrombocytopenia PLAN: 1. Continue post op management in ICU 2. Monitor renal function, electrolytes and CBC 3. D/C IVF, continue diuresis as needed and continue cardiac medications including Crestor and Bystolic as tolerated 4. ASA and Plavix. 5. GI and DVT prophylaxis Further plans are to follow Jarvis Hannon MD
[2016-09-29] MEDS: ROSUVASTATIN CA 20 MG TABLET (FP) PO SCH (21:18)
[2016-09-30 06:08] LABS: BASOPHIL 0.3 % (0-2.0); MCH 30.8 pg (25.7-33.7); MCHC 33.5 g/dl (32.0-35.9); MEAN CELL VOLUME 91.8 fl (80-96); MEAN PLT VOLUME 9.4 fl (7.5-11.1); NEUTROPHILS 90.9 % (42.8-82.8); PLATELET COUNT 104 K/MM3 (134-434); RDW 14.1 % (11.9-15.9); WHITE BLOOD COUNT 13.2 K/mm3 (4.0-10.0)
[2016-09-30 06:43] LABS: CALCIUM 8.2 mg/dL (8.5-10.1); COCKROFT - GAULT 51.63; CREATININE 1.8 mg/dL (0.7-1.3); MAGNESIUM 2.1 mg/dL (1.8-2.4); PHOSPHOROUS 2.8 mg/dL (2.5-4.9)
[2016-09-30] MEDS ORDERED: PT OWN MED DRAWER 7, Y5N ONE (08:54)
--- NOTE | 2016-09-30 08:57 | PN ---
Progress Note (short form) - Note Progress Note: PULM / CCM Pt Seen & examined in the ICU. CA+OX3, OOB --> Chair on NC O2, eating breakfast. States ready to return home. Active Medications Acetaminophen (Tylenol -) 325 mg PO Q4H PRN PRN Reason: FOR PAIN LEVEL 1-5 Stop: 10/02/16 12:38 Last Admin: 09/29/16 16:33 Dose: 325 mg Acetaminophen (Tylenol -) 650 mg PO Q4H PRN PRN Reason: FOR PAIN LEVEL 6-10 Stop: 10/02/16 12:44 Albuterol Sulfate (Ventolin 0.083% Nebulizer Soln -) 1 amp NEB Q4H PRN PRN Reason: SHORT OF BREATH/WHEEZING Arformoterol Tartrate (Brovana (Restricted To Pulmonology/Resp) -) 1 amp NEB BID [facility] Last Admin: 09/29/16 21:43 Dose: 1 amp Aspirin (Asa -) 81 mg PO DAILY [facility] Last Admin: 09/29/16 09:54 Dose: 81 mg Clopidogrel Bisulfate (Plavix -) 75 mg PO DAILY [facility] Last Admin: 09/29/16 09:54 Dose: 75 mg Enoxaparin Sodium (Lovenox -) 40 mg SQ DAILY [facility] Hydromorphone HCl (Dilaudid Injection -) 0.5 mg IVPB Q4H PRN PRN Reason: PAIN Last Admin: 09/28/16 14:20 Dose: 0.5 mg Famotidine/Sodium Chloride (Pepcid 20 Mg Premixed Ivpb -) 50 mls @ 100 mls/hr IVPB BID [facility] Last Admin: 09/29/16 21:17 Dose: 100 mls/hr Levothyroxine Sodium (Synthroid Injection -) 75 mcg IVPUSH DAILY [facility] Last Admin: 09/29/16 09:42 Dose: 75 mcg Methylprednisolone Sodium Succinate (Solu-Medrol -) 20 mg IVPB BID [facility] Last Admin: 09/29/16 21:17 Dose: 20 mg Morphine Sulfate (Morphine Injection -) 1 mg IVPUSH Q4H PRN PRN Reason: PAIN Last Admin: 09/29/16 09:49 Dose: 1 mg Nebivolol (Bystolic -) 5 mg PO DAILY [facility] Last Admin: 09/29/16 09:54 Dose: 5 mg Nicotine (Nicoderm Patch -) 14 mg TD DAILY [facility] Last Admin: 09/29/16 09:34 Dose: 14 mg Ondansetron HCl (Zofran Injection) 4 mg IVPB Q6H PRN PRN Reason: NAUSEA Last Admin: 09/28/16 15:51 Dose: 4 mg Oxycodone HCl (Roxicodone -) 5 mg PO Q4H PRN PRN Reason: FOR PAIN LEVEL 1-5 Last Admin: 09/29/16 16:34 Dose: 5 mg Oxycodone HCl (Roxicodone -) 10 mg PO Q4H PRN PRN Reason: FOR PAIN LEVEL 6-10 Rosuvastatin Calcium (Crestor -) 20 mg PO HS [facility] Last Admin: 09/29/16 21:18 Dose: 20 mg Simethicone (Mylicon -) 80 mg PO QID PRN PRN Reason: GAS Last Admin: 09/28/16 13:15 Dose: 80 mg PE: V/S Period Temp Pulse Resp BP Sys/Simmons Pulse Ox Last 24 Hr 97.4 F-99 F 60-80 18-20 104-173/60-100 92-95 Intake & Output 09/27/16 09/28/16 09/29/16 09/30/16 23:59 23:59 23:59 23:59 Intake Total 3543 2091 1805 200 Output Total 1850 5550 4550 1100 Balance 5904 -8237 -2745 -900 Weight 108.3 kg 108.607 kg 104 kg 99.875 kg GEN: Elderly man, CA+OX3, non toxic, OOB HEENT: PEERL, an-icteric, MMM CV: nml S1 S2, RR, unable to appreciate any G/R/M PULM: Occ wheeze on Exp ABD: obese, soft, mild tenderness around surgical site. dressing c/d/i EXT: + Pulses, WWPX4, +1 LE edema NEURO: Awake and alert, confused at times CXR 09/30: R IJ TLC in good position, resolving Pulm edema (My Read). ASSESSMENT AND PLAN: s/p Open Juxtarenal AAA repair, Left Femoral Bypass, Right Iliac Bypass Acute Hypercapneic Respiratory Failure Resolved Shock - ?Distributive Acute on Chronic Renal Failure Metablolic/Lactic Acidosis COPD CAD +Troponins likely Demand Ischemia Hypothyroidism - O2 for sat >90% - Nebs - NIPPV as needed - lasix for O>I - ASA, plavix - cont BB - steroids taper - Advance Diet a/p Sx - pain control - incentive spirometry - DVT/GI prophylaxis - Secure PIVs & D/c TLC - D/c [place] - Transfer --> Med Surg CCT: 36m Kristian Sue, [facility] 1827 Pulm/CCM
[2016-09-30] MEDS: ASPIRIN 81 MG CHEWABLE TABLETS PO SCH (09:10)
[2016-09-30] MEDS: NICOTINE 14 MG/24 HOURS TOPICAL PATCH TD SCH (09:11)
[2016-09-30] MEDS: NEBIVOLOL 5 MG TABLET (FP) PO SCH (09:11)
[2016-09-30] MEDS: methylPREDNISolone NA SUCC 40 MG/1 ML VIAL IVPB SCH ×2 (09:12→21:52)
[2016-09-30] MEDS: CLOPIDOGREL BISULFATE 75 MG TABLET (FP) PO SCH (09:12)
[2016-09-30] MEDS: LEVOTHYROXINE SODIUM 100 MCG VIAL IVPUSH SCH (09:12)
[2016-09-30] MEDS: FAMOTIDINE 20 MG/50 ML IVPB 50 ML IVPB SCH (09:12)
--- NOTE | 2016-09-30 09:28 | PN ---
Progress Note, Physician History of Present Illness: Renal F/U Pt is OOB in the chair C/O discomfort from the morgan Now off IVF and lasix x1 given Effusions better Pt using the incentive spirometer Today's Cr is better Tolerating liquids - Current Medication List Current Medications: Active Medications Acetaminophen (Tylenol -) 325 mg PO Q4H PRN PRN Reason: FOR PAIN LEVEL 1-5 Stop: 10/02/16 12:38 Last Admin: 09/29/16 16:33 Dose: 325 mg Acetaminophen (Tylenol -) 650 mg PO Q4H PRN PRN Reason: FOR PAIN LEVEL 6-10 Stop: 10/02/16 12:44 Albuterol Sulfate (Ventolin 0.083% Nebulizer Soln -) 1 amp NEB Q4H PRN PRN Reason: SHORT OF BREATH/WHEEZING Arformoterol Tartrate (Brovana (Restricted To Pulmonology/Resp) -) 1 amp NEB BID [facility] Last Admin: 09/29/16 21:43 Dose: 1 amp Aspirin (Asa -) 81 mg PO DAILY [facility] Last Admin: 09/30/16 09:10 Dose: 81 mg Clopidogrel Bisulfate (Plavix -) 75 mg PO DAILY [facility] Last Admin: 09/30/16 09:12 Dose: 75 mg Enoxaparin Sodium (Lovenox -) 40 mg SQ DAILY [facility] Last Admin: 09/30/16 09:11 Dose: 40 mg Hydromorphone HCl (Dilaudid Injection -) 0.5 mg IVPB Q4H PRN PRN Reason: PAIN Last Admin: 09/28/16 14:20 Dose: 0.5 mg Famotidine/Sodium Chloride (Pepcid 20 Mg Premixed Ivpb -) 50 mls @ 100 mls/hr IVPB BID [facility] Last Admin: 09/30/16 09:12 Dose: 100 mls/hr Levothyroxine Sodium (Synthroid Injection -) 75 mcg IVPUSH DAILY [facility] Last Admin: 09/30/16 09:12 Dose: 75 mcg Methylprednisolone Sodium Succinate (Solu-Medrol -) 20 mg IVPB BID [facility] Last Admin: 09/30/16 09:12 Dose: 20 mg Morphine Sulfate (Morphine Injection -) 1 mg IVPUSH Q4H PRN PRN Reason: PAIN Last Admin: 09/29/16 09:49 Dose: 1 mg Nebivolol (Bystolic -) 5 mg PO DAILY [facility] Last Admin: 09/30/16 09:11 Dose: 5 mg Nicotine (Nicoderm Patch -) 14 mg TD DAILY [facility] Last Admin: 09/30/16 09:11 Dose: 14 mg Ondansetron HCl (Zofran Injection) 4 mg IVPB Q6H PRN PRN Reason: NAUSEA Last Admin: 09/28/16 15:51 Dose: 4 mg Oxycodone HCl (Roxicodone -) 5 mg PO Q4H PRN PRN Reason: FOR PAIN LEVEL 1-5 Last Admin: 09/29/16 16:34 Dose: 5 mg Oxycodone HCl (Roxicodone -) 10 mg PO Q4H PRN PRN Reason: FOR PAIN LEVEL 6-10 Rosuvastatin Calcium (Crestor -) 20 mg PO [facility] Last Admin: 09/29/16 21:18 Dose: 20 mg Simethicone (Mylicon -) 80 mg PO QID PRN PRN Reason: GAS Last Admin: 09/28/16 13:15 Dose: 80 mg - Objective Vital Signs: Vital Signs Temperature 98.5 F 09/30/16 08:00 Pulse Rate 70 09/30/16 08:00 Respiratory Rate 20 09/30/16 08:00 Blood Pressure 164/88 09/30/16 08:00 O2 Sat by Pulse Oximetry (%) 95 09/30/16 08:17 Constitutional: Yes: No Distress Cardiovascular: Yes: S1, S2 Respiratory: Yes: Other (Occasional rhonchi) Gastrointestinal: Yes: Normal Bowel Sounds, Soft, Distention Edema: No Labs: CBC, BMP 09/30/16 05:15 09/30/16 05:15 INR, PTT INR 1.33 (0.82-1.09) H 09/29/16 05:20 Laboratory Tests 09/29/16 09/29/16 05:20 11:30 Phosphorus 2.4 L D Urine Color Ltyellow Urine Appearance Clear Urine pH 7.0 D Ur Specific [place] 1.015 Urine Protein 1+ H Urine Glucose (UA) Negative Urine Ketones Negative Urine Blood 2+ H Urine Nitrite Negative Urine Bilirubin Negative Urine Urobilinogen Negative Ur Leukocyte Esterase Negative Urine RBC 80 Urine WBC 3 Granular Casts 4 Urine Mucus Rare - ....Imaging Chest X-ray: Report Reviewed, Image Reviewed Assessment/Plan Impression 1. HELLEN on CKD begining to improve and returning to baseline 2. S/P hyperkalemia 3. S/P AAA repair 4. metabolic and respiratory acidosis 5. S/P Hypotension now with HTN 6. hyperlipidemia 7. B/L effusions and atelectasis 8. CAD 9. AUR Plan Incentive Spirometry Additional lasix today Voiding trial Rpt labs in am Discussed with the [employer] Dr Romero
[2016-09-30] MEDS ORDERED: FUROSEMIDE 40 MG TABLET (FP) PO ONE (09:33)
[2016-09-30] MEDS ORDERED: ENOXAPARIN NA (PORCINE) 40 MG/0.4 ML DISP.SYRIN SQ SCH (10:00)
[2016-09-30] MEDS: ARFORMOTEROL TARTRATE 15 MCG/2 ML VIAL NEB SCH ×2 (10:28→22:51)
--- NOTE | 2016-09-30 12:07 | PN ---
Progress Note (short form) - Note Progress Note: POD 4 Sitting in chair, no agitation VSS Abd full, soft Wound dry Palpable femoral and DP pulses bilaterally. Less edema Hgb stable, Platelets >100K Cr 1.8 (lower) Stable course OOB Advance diet Transfer to floor
[2016-09-30] MEDS ORDERED: ACETAMINOPHEN 325 MG TABLET (FP) PO PRN ×2 (12:11)
[2016-09-30] MEDS ORDERED: SIMETHICONE 80 MG TAB.CHEW (FP) PO PRN (12:11)
[2016-09-30] MEDS ORDERED: oxyCODONE HCL 5 MG TABLET PO PRN ×2 (12:11)
[2016-09-30] MEDS ORDERED: ALBUTEROL SO4 0.083% IH SOL 2.5 MG/3 ML VIAL.NEB. NEB PRN (12:11)
[2016-09-30] MEDS ORDERED: ONDANSETRON 4 MG/2 ML VIAL IVPB PRN (12:11)
--- NOTE | 2016-09-30 17:27 | PN ---
Progress Note, Physician Chief Complaint: Events noted Not in distress History of Present Illness: Patient was seen and examined in ICU. Awake and alert. Sitting in chair. Chart was reviewed Post op AAA repair, post peripheral bypass Intermittent confusion - Current Medication List Current Medications: Active Medications Acetaminophen (Tylenol -) 325 mg PO Q4H PRN PRN Reason: FOR PAIN LEVEL 1-5 Stop: 10/02/16 12:38 Acetaminophen (Tylenol -) 650 mg PO Q4H PRN PRN Reason: FOR PAIN LEVEL 6-10 Stop: 10/02/16 12:44 Albuterol Sulfate (Ventolin 0.083% Nebulizer Soln -) 1 amp NEB Q4H PRN PRN Reason: SHORT OF BREATH/WHEEZING Arformoterol Tartrate (Brovana (Restricted To Pulmonology/Resp) -) 1 amp NEB BID [facility] Aspirin (Asa -) 81 mg PO DAILY [facility] Clopidogrel Bisulfate (Plavix -) 75 mg PO DAILY [facility] Enoxaparin Sodium (Lovenox -) 40 mg SQ DAILY [facility] Levothyroxine Sodium 112 mcg/ (Levothyroxine Sodium 25 mcg) 137 mcg PO MoTuWeThFr@0700 [facility] Levothyroxine Sodium (Synthroid -) 150 mcg PO SuSa@0700 [facility] Methylprednisolone Sodium Succinate (Solu-Medrol -) 20 mg IVPB BID [facility] Nebivolol (Bystolic -) 5 mg PO DAILY [facility] Nicotine (Nicoderm Patch -) 14 mg TD DAILY [facility] Ondansetron HCl (Zofran Injection) 4 mg IVPB Q6H PRN PRN Reason: NAUSEA Oxycodone HCl (Roxicodone -) 5 mg PO Q4H PRN PRN Reason: FOR PAIN LEVEL 1-5 Oxycodone HCl (Roxicodone -) 10 mg PO Q4H PRN PRN Reason: FOR PAIN LEVEL 6-10 Ranitidine HCl (Zantac -) 150 mg PO DAILY [facility] Rosuvastatin Calcium (Crestor -) 20 mg PO HS [facility] Simethicone (Mylicon -) 80 mg PO QID PRN PRN Reason: GAS - Objective Vital Signs: Vital Signs Temperature 98.2 F 09/30/16 16:00 Pulse Rate 76 09/30/16 16:00 Respiratory Rate 20 09/30/16 16:00 Blood Pressure 146/84 09/30/16 16:00 O2 Sat by Pulse Oximetry (%) 97 09/30/16 10:27 Neck: Yes: Supple Cardiovascular: Yes: Regular Rate and Rhythm, S1, S2. No: Murmur Respiratory: Yes: Diminished Gastrointestinal: Yes: Other (Post op). No: Tenderness Edema: No Labs: CBC, BMP 09/30/16 05:15 09/30/16 05:15 INR, PTT INR 1.33 (0.82-1.09) H 09/29/16 05:20 Problem List - Problems (1) HELLEN (acute kidney injury) Code(s): N17.9 - ACUTE KIDNEY FAILURE, UNSPECIFIED (2) Abdominal aortic aneurysm Code(s): I71.4 - ABDOMINAL AORTIC ANEURYSM, WITHOUT RUPTURE Qualifiers: Presence of rupture: without rupture Qualified Code(s): I71.4 - Abdominal aortic aneurysm, without rupture (3) Acute hypercapnic respiratory failure Code(s): J96.02 - ACUTE RESPIRATORY FAILURE WITH HYPERCAPNIA (4) COPD (chronic obstructive pulmonary disease) Code(s): J44.9 - CHRONIC OBSTRUCTIVE PULMONARY DISEASE, UNSPECIFIED Qualifiers : COPD type: unspecified COPD Qualified Code(s): J44.9 - Chronic obstructive pulmonary disease, unspecified (5) Chronic kidney disease, stage 2 (mild) Code(s): N18.2 - CHRONIC KIDNEY DISEASE, STAGE 2 (MILD) (6) Coronary artery disease Code(s): I25.10 - ATHSCL HEART DISEASE OF [place] CORONARY ARTERY W/O ANG PCTRS Qualifiers: Coronary Disease-Associated Artery/Lesion type: [place] artery [place] vs. transplanted heart: [place] heart Associated angina: without angina Qualified Code(s): I25.10 - Atherosclerotic heart disease of [place] coronary artery without angina pectoris (7) Essential (primary) hypertension Code(s): I10 - ESSENTIAL (PRIMARY) HYPERTENSION (8) S/P aortic aneurysm repair Code(s): Z98.890 - OTHER SPECIFIED POSTPROCEDURAL STATES Z86.79 - PERSONAL HISTORY OF OTHER DISEASES OF THE CIRCULATORY SYSTEM (9) Status post insertion of drug eluting coronary artery stent Code(s): Z95.5 - PRESENCE OF CORONARY ANGIOPLASTY IMPLANT AND GRAFT Assessment/Plan 1. Acute hypercapneic respiratory failure post-op - currently stable 2. Post open repair of 6 cm juxtarenal abdominal aortic aneurysm, left femoral bypass and right iliac bypass. 3. CAD s/p NAIF LAD - demand ischemia 4. COPD 5. Acute on CKD with improving lactic acidosis 6. Labile HTN 7. Hyperlipidemia 8. Hypothyroidism 9. Thrombocytopenia PLAN: 1. Continue post op management in ICU - transfer to med/surg floor 2. Monitor renal function, electrolytes and CBC 3. Diuresis as needed and continue cardiac medications including Crestor and Bystolic as tolerated 4. ASA and Plavix. 5. GI and DVT prophylaxis Further plans are to follow Jarvis Hannon MD
[2016-09-30] MEDS ORDERED: ROSUVASTATIN CA 10 MG TABLET (FP) ONE (20:08)
[2016-09-30] MEDS: ROSUVASTATIN CA 20 MG TABLET (FP) PO SCH (21:52)
[2016-10-01] MEDS ORDERED: LEVOTHYROXINE NA 25 MCG TABLET (FP) ONE (05:34)
[2016-10-01] MEDS ORDERED: LEVOTHYROXINE NA 112 MCG TABLET (FP) ONE (05:34)
[2016-10-01] MEDS: LEVOTHYROXINE 112 MCG, LEVOTHYROXINE 25 MCG PO SCH (06:16)
[2016-10-01 08:04] LABS: BASOPHIL 0.3 % (0-2.0); MCHC 33.5 g/dl (32.0-35.9); MEAN CELL VOLUME 92.6 fl (80-96); MEAN PLT VOLUME 9.6 fl (7.5-11.1); NEUTROPHILS 87.9 % (42.8-82.8); PLATELET COUNT 120 K/MM3 (134-434); RDW 13.7 % (11.9-15.9); WHITE BLOOD COUNT 14.7 K/mm3 (4.0-10.0)
[2016-10-01 08:19] LABS: CALCIUM 8.8 mg/dL (8.5-10.1)
[2016-10-01 08:22] LABS: COCKROFT - GAULT 48.91; CREATININE 1.9 mg/dL (0.7-1.3)
[2016-10-01] MEDS ORDERED: PT OWN MED DRAWER 7, Y5N ONE (09:36)
[2016-10-01] MEDS: methylPREDNISolone NA SUCC 40 MG/1 ML VIAL IVPB SCH (09:38)
[2016-10-01] MEDS: NICOTINE 14 MG/24 HOURS TOPICAL PATCH TD SCH (09:39)
[2016-10-01] MEDS: ENOXAPARIN NA (PORCINE) 40 MG/0.4 ML DISP.SYRIN SQ SCH (09:39)
[2016-10-01] MEDS: CLOPIDOGREL BISULFATE 75 MG TABLET (FP) PO SCH (09:40)
[2016-10-01] MEDS: NEBIVOLOL 5 MG TABLET (FP) PO SCH (09:40)
[2016-10-01] MEDS: RANITIDINE HCL 150 MG TABLET (FP) PO SCH (09:41)
[2016-10-01] MEDS: ASPIRIN 81 MG CHEWABLE TABLETS PO SCH (09:41)
[2016-10-01] MEDS: ARFORMOTEROL TARTRATE 15 MCG/2 ML VIAL NEB SCH ×2 (10:29→22:39)
--- NOTE | 2016-10-01 10:37 | PN ---
Progress Note (short form) - Note Progress Note: PULMONARY Doing well, ambulating in halls. Denies shortness of breath or chest pain. Last Vital Signs Temp Pulse Resp BP Pulse Ox 98.0 F 65 20 122/74 95 10/01/16 07:00 10/01/16 07:00 10/01/16 07:00 10/01/16 07:00 09/30/16 21:00 Gen: NAD at rest Heart: RRR Lung: decreased breath sounds at the bases Abd: soft, nontender Ext: no edema CBC, BMP 10/01/16 06:30 10/01/16 06:30 Active Medications Acetaminophen (Tylenol -) 325 mg PO Q4H PRN PRN Reason: FOR PAIN LEVEL 1-5 Stop: 10/02/16 12:38 Acetaminophen (Tylenol -) 650 mg PO Q4H PRN PRN Reason: FOR PAIN LEVEL 6-10 Stop: 10/02/16 12:44 Albuterol Sulfate (Ventolin 0.083% Nebulizer Soln -) 1 amp NEB Q4H PRN PRN Reason: SHORT OF BREATH/WHEEZING Arformoterol Tartrate (Brovana (Restricted To Pulmonology/Resp) -) 1 amp NEB BID [facility] Last Admin: 09/30/16 22:51 Dose: 1 amp Aspirin (Asa -) 81 mg PO DAILY [facility] Last Admin: 10/01/16 09:41 Dose: 81 mg Clopidogrel Bisulfate (Plavix -) 75 mg PO DAILY [facility] Last Admin: 10/01/16 09:40 Dose: 75 mg Enoxaparin Sodium (Lovenox -) 40 mg SQ DAILY [facility] Last Admin: 10/01/16 09:39 Dose: 40 mg Levothyroxine Sodium 112 mcg/ (Levothyroxine Sodium 25 mcg) 137 mcg PO MoTuWeThFr@0700 [facility] Last Admin: 10/01/16 06:16 Dose: 137 mcg Levothyroxine Sodium (Synthroid -) 150 mcg PO SuSa@0700 [facility] Methylprednisolone Sodium Succinate (Solu-Medrol -) 20 mg IVPB BID [facility] Last Admin: 10/01/16 09:38 Dose: 20 mg Nebivolol (Bystolic -) 5 mg PO DAILY [facility] Last Admin: 10/01/16 09:40 Dose: 5 mg Nicotine (Nicoderm Patch -) 14 mg TD DAILY [facility] Last Admin: 10/01/16 09:39 Dose: 14 mg Ondansetron HCl (Zofran Injection) 4 mg IVPB Q6H PRN PRN Reason: NAUSEA Oxycodone HCl (Roxicodone -) 5 mg PO Q4H PRN PRN Reason: FOR PAIN LEVEL 1-5 Oxycodone HCl (Roxicodone -) 10 mg PO Q4H PRN PRN Reason: FOR PAIN LEVEL 6-10 Ranitidine HCl (Zantac -) 150 mg PO DAILY [facility] Last Admin: 10/01/16 09:41 Dose: 150 mg Rosuvastatin Calcium (Crestor -) 20 mg PO HS [facility] Last Admin: 09/30/16 21:52 Dose: 20 mg Simethicone (Mylicon -) 80 mg PO QID PRN PRN Reason: GAS A/P s/p Open Juxtarenal AAA repair, Left Femoral Bypass, Right Iliac Bypass Acute Hypercapneic Respiratory Failure resolved Shock resolved Acute on Chronic Renal Failure improving Metablolic/Lactic Acidosis resolved COPD CAD +Troponins likely Demand Ischemia Hypothyroidism - ASA, plavix - beta blockade if BP tolerates - establish peripheral access and d/c central line - will change steroids to PO - incentive spirometry - DVT/GI prophylaxis
--- NOTE | 2016-10-01 11:19 | PN ---
Progress Note, Physician History of Present Illness: Ambulating, denies chest pain or dyspnea, claudication resolved. - Current Medication List Current Medications: Active Medications Acetaminophen (Tylenol -) 325 mg PO Q4H PRN PRN Reason: FOR PAIN LEVEL 1-5 Stop: 10/02/16 12:38 Acetaminophen (Tylenol -) 650 mg PO Q4H PRN PRN Reason: FOR PAIN LEVEL 6-10 Stop: 10/02/16 12:44 Albuterol Sulfate (Ventolin 0.083% Nebulizer Soln -) 1 amp NEB Q4H PRN PRN Reason: SHORT OF BREATH/WHEEZING Arformoterol Tartrate (Brovana (Restricted To Pulmonology/Resp) -) 1 amp NEB BID [facility] Last Admin: 09/30/16 22:51 Dose: 1 amp Aspirin (Asa -) 81 mg PO DAILY [facility] Last Admin: 10/01/16 09:41 Dose: 81 mg Clopidogrel Bisulfate (Plavix -) 75 mg PO DAILY [facility] Last Admin: 10/01/16 09:40 Dose: 75 mg Enoxaparin Sodium (Lovenox -) 40 mg SQ DAILY [facility] Last Admin: 10/01/16 09:39 Dose: 40 mg Levothyroxine Sodium 112 mcg/ (Levothyroxine Sodium 25 mcg) 137 mcg PO MoTuWeThFr@0700 [facility] Last Admin: 10/01/16 06:16 Dose: 137 mcg Levothyroxine Sodium (Synthroid -) 150 mcg PO SuSa@0700 [facility] Nebivolol (Bystolic -) 5 mg PO DAILY [facility] Last Admin: 10/01/16 09:40 Dose: 5 mg Nicotine (Nicoderm Patch -) 14 mg TD DAILY [facility] Last Admin: 10/01/16 09:39 Dose: 14 mg Ondansetron HCl (Zofran Injection) 4 mg IVPB Q6H PRN PRN Reason: NAUSEA Oxycodone HCl (Roxicodone -) 5 mg PO Q4H PRN PRN Reason: FOR PAIN LEVEL 1-5 Oxycodone HCl (Roxicodone -) 10 mg PO Q4H PRN PRN Reason: FOR PAIN LEVEL 6-10 Prednisone (Deltasone -) 20 mg PO DAILY [facility] Ranitidine HCl (Zantac -) 150 mg PO DAILY [facility] Last Admin: 10/01/16 09:41 Dose: 150 mg Rosuvastatin Calcium (Crestor -) 20 mg PO HS [facility] Last Admin: 09/30/16 21:52 Dose: 20 mg Simethicone (Mylicon -) 80 mg PO QID PRN PRN Reason: GAS - Objective Vital Signs: Vital Signs Temperature 98.0 F 10/01/16 07:00 Pulse Rate 65 10/01/16 07:00 Respiratory Rate 20 10/01/16 07:00 Blood Pressure 122/74 10/01/16 07:00 O2 Sat by Pulse Oximetry (%) 95 09/30/16 21:00 Constitutional: Yes: No Distress, Calm Neck: Yes: Supple Cardiovascular: Yes: Regular Rate and Rhythm Respiratory: Yes: Regular, Diminished Gastrointestinal: Yes: Normal Bowel Sounds, Soft Edema: No Labs: CBC, BMP 10/01/16 06:30 10/01/16 06:30 INR, PTT INR 1.33 (0.82-1.09) H 09/29/16 05:20 Problem List - Problems (1) Abdominal aortic aneurysm Code(s): I71.4 - ABDOMINAL AORTIC ANEURYSM, WITHOUT RUPTURE Qualifiers: Presence of rupture: without rupture Qualified Code(s): I71.4 - Abdominal aortic aneurysm, without rupture (2) COPD (chronic obstructive pulmonary disease) Code(s): J44.9 - CHRONIC OBSTRUCTIVE PULMONARY DISEASE, UNSPECIFIED Qualifiers : COPD type: unspecified COPD Qualified Code(s): J44.9 - Chronic obstructive pulmonary disease, unspecified (3) Chronic kidney disease, stage 2 (mild) Code(s): N18.2 - CHRONIC KIDNEY DISEASE, STAGE 2 (MILD) (4) Acute hypercapnic respiratory failure Code(s): J96.02 - ACUTE RESPIRATORY FAILURE WITH HYPERCAPNIA (5) Coronary artery disease Code(s): I25.10 - ATHSCL HEART DISEASE OF [place] CORONARY ARTERY W/O ANG PCTRS Qualifiers: Coronary Disease-Associated Artery/Lesion type: [place] artery [place] vs. transplanted heart: [place] heart Associated angina: without angina Qualified Code(s): I25.10 - Atherosclerotic heart disease of [place] coronary artery without angina pectoris (6) Status post insertion of drug eluting coronary artery stent Code(s): Z95.5 - PRESENCE OF CORONARY ANGIOPLASTY IMPLANT AND GRAFT (7) Hyperlipidemia LDL goal <100 Code(s): E78.5 - HYPERLIPIDEMIA, UNSPECIFIED (8) Hypothyroidism Code(s): E03.9 - HYPOTHYROIDISM, UNSPECIFIED Qualifiers: Hypothyroidism type: unspecified Qualified Code(s): E03.9 - Hypothyroidism, unspecified (9) S/P aortic aneurysm repair Code(s): Z98.890 - OTHER SPECIFIED POSTPROCEDURAL STATES Z86.79 - PERSONAL HISTORY OF OTHER DISEASES OF THE CIRCULATORY SYSTEM Assessment/Plan 08/16/2016 Echo: Normal LV size and fxn, mild cLVH, mild MR 08/21/2016 Regadenoson Myoview: Small mild inferior ischemia, LVEF 80% 09/26/2016 Echocardiogram: Poor windows 1. Acute hypercapneic respiratory failure post-op resolved 2. 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 3. CAD s/p NAIF LAD, demand ischemia 4. COPD 5. Acute on CKD with lactic acidosis improving 6. Labile HTN stabilized 7. Hyperlipidemia 8. Sinus tachycardia resolved 9. Hypothyroidism 10. Thrombocytopenia resolved P:1. Wean FIO2 as tolerated, BD as needed, steroid taper 2. Trops have peaked, monitor renal function and output, monitor Hgb post transfusion 3. Diuresis as needed continue Crestor 20 qd and Bystolic 5 qd 4. ASA 81 qd, Plavix 75 qd, GI and DVT prophylaxis 5. PT->SNF vs home PT
--- NOTE | 2016-10-01 12:49 | PN ---
Progress Note, Physician History of Present Illness: Pt seen and examined at bedside. He is awake and alert. He is now in the medical hern[facility]. He is able to ambulate. He denies shortness of breath. He denies chest pain. He denies dysuria. - Current Medication List Current Medications: Active Medications Acetaminophen (Tylenol -) 325 mg PO Q4H PRN PRN Reason: FOR PAIN LEVEL 1-5 Stop: 10/02/16 12:38 Acetaminophen (Tylenol -) 650 mg PO Q4H PRN PRN Reason: FOR PAIN LEVEL 6-10 Stop: 10/02/16 12:44 Albuterol Sulfate (Ventolin 0.083% Nebulizer Soln -) 1 amp NEB Q4H PRN PRN Reason: SHORT OF BREATH/WHEEZING Arformoterol Tartrate (Brovana (Restricted To Pulmonology/Resp) -) 1 amp NEB BID [facility] Last Admin: 09/30/16 22:51 Dose: 1 amp Aspirin (Asa -) 81 mg PO DAILY [facility] Last Admin: 10/01/16 09:41 Dose: 81 mg Clopidogrel Bisulfate (Plavix -) 75 mg PO DAILY [facility] Last Admin: 10/01/16 09:40 Dose: 75 mg Enoxaparin Sodium (Lovenox -) 40 mg SQ DAILY [facility] Last Admin: 10/01/16 09:39 Dose: 40 mg Levothyroxine Sodium 112 mcg/ (Levothyroxine Sodium 25 mcg) 137 mcg PO MoTuWeThFr@0700 [facility] Last Admin: 10/01/16 06:16 Dose: 137 mcg Levothyroxine Sodium (Synthroid -) 150 mcg PO SuSa@0700 [facility] Nebivolol (Bystolic -) 5 mg PO DAILY [facility] Last Admin: 10/01/16 09:40 Dose: 5 mg Nicotine (Nicoderm Patch -) 14 mg TD DAILY [facility] Last Admin: 10/01/16 09:39 Dose: 14 mg Ondansetron HCl (Zofran Injection) 4 mg IVPB Q6H PRN PRN Reason: NAUSEA Oxycodone HCl (Roxicodone -) 5 mg PO Q4H PRN PRN Reason: FOR PAIN LEVEL 1-5 Oxycodone HCl (Roxicodone -) 10 mg PO Q4H PRN PRN Reason: FOR PAIN LEVEL 6-10 Prednisone (Deltasone -) 20 mg PO DAILY [facility] Ranitidine HCl (Zantac -) 150 mg PO DAILY [facility] Last Admin: 10/01/16 09:41 Dose: 150 mg Rosuvastatin Calcium (Crestor -) 20 mg PO HS [facility] Last Admin: 09/30/16 21:52 Dose: 20 mg Simethicone (Mylicon -) 80 mg PO QID PRN PRN Reason: GAS - Objective Vital Signs: Vital Signs Temperature 97.0 F L 10/01/16 11:00 Pulse Rate 68 10/01/16 11:00 Respiratory Rate 17 10/01/16 11:00 Blood Pressure 154/80 10/01/16 11:00 O2 Sat by Pulse Oximetry (%) 95 09/30/16 21:00 Constitutional: Yes: Calm Eyes: Yes: Conjunctiva Clear HENT: Yes: Atraumatic Cardiovascular: Yes: S1, S2 Respiratory: Yes: On Nasal O2 Gastrointestinal: Yes: Other (abdominal dressing in place) Genitourinary: Yes: WNL Edema: Yes Edema: LLE: 1+, RLE: 1+ Neurological: Yes: Oriented Psychiatric: Yes: Oriented Labs: CBC, BMP 10/01/16 06:30 10/01/16 06:30 INR, PTT INR 1.33 (0.82-1.09) H 09/29/16 05:20 Problem List - Problems (1) Abdominal aortic aneurysm Code(s): I71.4 - ABDOMINAL AORTIC ANEURYSM, WITHOUT RUPTURE Qualifiers: Presence of rupture: without rupture Qualified Code(s): I71.4 - Abdominal aortic aneurysm, without rupture (2) Acute hypercapnic respiratory failure Code(s): J96.02 - ACUTE RESPIRATORY FAILURE WITH HYPERCAPNIA (3) COPD (chronic obstructive pulmonary disease) Code(s): J44.9 - CHRONIC OBSTRUCTIVE PULMONARY DISEASE, UNSPECIFIED Qualifiers : COPD type: unspecified COPD Qualified Code(s): J44.9 - Chronic obstructive pulmonary disease, unspecified (4) Chronic kidney disease, stage 2 (mild) Code(s): N18.2 - CHRONIC KIDNEY DISEASE, STAGE 2 (MILD) (5) Coronary artery disease Code(s): I25.10 - ATHSCL HEART DISEASE OF [place] CORONARY ARTERY W/O ANG PCTRS Qualifiers: Coronary Disease-Associated Artery/Lesion type: [place] artery [place] vs. transplanted heart: [place] heart Associated angina: without angina Qualified Code(s): I25.10 - Atherosclerotic heart disease of [place] coronary artery without angina pectoris (6) HELLEN (acute kidney injury) Code(s): N17.9 - ACUTE KIDNEY FAILURE, UNSPECIFIED (7) Hyperkalemia Code(s): E87.5 - HYPERKALEMIA (8) Metabolic acidemia Code(s): E87.2 - ACIDOSIS Assessment/Plan Current Medications Generic Name Dose Route Start Last Admin Trade Name Freq PRN Reason Stop Dose Admin Acetaminophen 325 mg 09/30/16 12:11 Tylenol - PO 10/02/16 12:38 Q4H PRN FOR PAIN LEVEL 1-5 Acetaminophen 650 mg 09/30/16 12:11 Tylenol - PO 10/02/16 12:44 Q4H PRN FOR PAIN LEVEL 6-10 Albuterol Sulfate 1 amp 09/30/16 12:11 Ventolin 0.083% Nebulizer Soln - NEB Q4H PRN SHORT OF BREATH/WHEEZING Arformoterol Tartrate 1 amp 09/30/16 22:00 09/30/16 22:51 Brovana (Restricted To Pulmonology/Resp) - NEB 1 amp BID [facility] Administration Aspirin 81 mg 10/01/16 10:00 10/01/16 09:41 Asa - PO 81 mg DAILY [facility] Administration Clopidogrel Bisulfate 75 mg 10/01/16 10:00 10/01/16 09:40 Plavix - PO 75 mg DAILY [facility] Administration Enoxaparin Sodium 40 mg 10/01/16 10:00 10/01/16 09:39 Lovenox - SQ 40 mg DAILY [facility] Administration Levothyroxine Sodium 112 mcg/ 137 mcg 10/01/16 07:00 10/01/16 06:16 Levothyroxine Sodium 25 mcg PO 137 mcg MoTuWeThFr@0700 [facility] Administration Levothyroxine Sodium 150 mcg 10/06/16 07:00 Synthroid - PO SuSa@0700 [facility] Nebivolol 5 mg 10/01/16 10:00 10/01/16 09:40 Bystolic - PO 5 mg DAILY [facility] Administration Nicotine 14 mg 10/01/16 10:00 10/01/16 09:39 Nicoderm Patch - TD 14 mg DAILY [facility] Administration Ondansetron HCl 4 mg 09/30/16 12:11 Zofran Injection IVPB Q6H PRN NAUSEA Oxycodone HCl 5 mg 09/30/16 12:11 Roxicodone - PO Q4H PRN FOR PAIN LEVEL 1-5 Oxycodone HCl 10 mg 09/30/16 12:11 Roxicodone - PO Q4H PRN FOR PAIN LEVEL 6-10 Prednisone 20 mg 10/02/16 10:00 Deltasone - PO DAILY [facility] Ranitidine HCl 150 mg 10/01/16 10:00 10/01/16 09:41 Zantac - PO 150 mg DAILY [facility] Administration Rosuvastatin Calcium 20 mg 09/30/16 22:00 09/30/16 21:52 Crestor - PO 20 mg HS [facility] Administration Simethicone 80 mg 09/30/16 12:11 Mylicon - PO QID PRN GAS Impression 1. HELLEN 2. hyperkalemia 3. respiratory failure requiring intubation 4. metabolic and respiratory acidosis 5. labile HTN - pt is now hypotensive and on levophed 6. s/p AAA repair 7. hyperlipidemia 8. CAD Plan - repeat labs in am - will asses for diuretics in am - monitor pulse ox - will need outpt renal workup - monitor urine output - should get a pheochromocytoma workup - will follow closely Dr Woods
--- NOTE | 2016-10-01 16:14 | EKG ---
Test Reason : Blood Pressure : / mmHG Vent. Rate : 126 BPM Atrial Rate : 126 BPM P-R Int : 174 ms QRS Dur : 142 ms QT Int : 262 ms P-R-T Axes : 073 -85 046 degrees QTc Int : 379 ms SINUS TACHYCARDIA WITH FREQUENT PREMATURE VENTRICULAR COMPLEXES IN A PATTERN OF BIGEMINY LEFT AXIS DEVIATION RIGHT BUNDLE BRANCH BLOCK ABNORMAL ECG WHEN COMPARED WITH ECG OF 17-SEP-2016 09:51, VENT. RATE HAS INCREASED BY 64 BPM NONSPECIFIC T WAVE ABNORMALITY NOW EVIDENT IN ANTEROLATERAL LEADS Confirmed by CLAYTON LAURA MD ([id number]) on 10/01/2016 4:14:23 PM Referred By: Confirmed By:CLAYTON LAURA MD
--- NOTE | 2016-10-01 16:47 | PN ---
Progress Note (short form) - Note Progress Note: Pt without any complaints. No abd pain. He had a large bowel movement today and is passing flatus. Vital Signs Period Temp Pulse Resp BP Sys/Simmons Pulse Ox Last 24 Hr 97.0 F-98.5 F 60-80 17-20 103-154/51-93 95-96 PE: CV: RRR Lungs: course breath sounds b/l. No Rhonci or wheezing noted. ABD: soft, non-distended, non-tender. Inc c/d/i with jeff to the midline and left groin. LE: +2 DP pulses b/l. Mild edmea b/l. No calf tenderness. CBC, BMP 10/01/16 06:30 10/01/16 06:30 A/P: 71 yo male s/p Open repair of juxtarenal abdominal aortic aneurysm, left femoral bypass, right iliac bypass. OOB with PT and ambulating. Tolerating a regular diet and having bowel function. Thrombocytopenia resolving. DVT ppx with Lovenox SQ. Pt started on oral prednisone by pulmonary Renal will continue to follow for additional diuresis, BUN/Cret remain slighlty elevated Right hand 22 gauge peripheral IV placed and TLC removed. Spoke with Dr. Bello and will arrange for discharge planning once medically stable
[2016-10-01 19:07] LABS: CALCIUM 8.8 mg/dL (8.5-10.1); COCKROFT - GAULT 54.67; CREATININE 1.7 mg/dL (0.7-1.3)
[2016-10-01] MEDS: ROSUVASTATIN CA 20 MG TABLET (FP) PO SCH (21:48)
[2016-10-02] MEDS ORDERED: LEVOTHYROXINE NA 112 MCG TABLET (FP) ONE (05:13)
[2016-10-02] MEDS ORDERED: LEVOTHYROXINE NA 25 MCG TABLET (FP) ONE (05:13)
[2016-10-02] MEDS: LEVOTHYROXINE 112 MCG, LEVOTHYROXINE 25 MCG PO SCH (06:19)
[2016-10-02 07:20] LABS: BASOPHIL 0.7 % (0-2.0); EOSINOPHIL 0.4 % (0-4.5); MCH 31.1 pg (25.7-33.7); MCHC 33.4 g/dl (32.0-35.9); MEAN CELL VOLUME 93.1 fl (80-96); MEAN PLT VOLUME 9.3 fl (7.5-11.1); NEUTROPHILS 79.6 % (42.8-82.8); PLATELET COUNT 129 K/MM3 (134-434); WHITE BLOOD COUNT 14.1 K/mm3 (4.0-10.0)
[2016-10-02 07:50] LABS: CALCIUM 8.4 mg/dL (8.5-10.1); COCKROFT - GAULT 54.67; CREATININE 1.7 mg/dL (0.7-1.3)
--- NOTE | 2016-10-02 08:26 | PN ---
Progress Note (short form) - Note Progress Note: C/o gas pains, moving bowels Afeb Abd full, soft Wound dry, small amt old drainage on dressing Feet warm, mild edema WBC 14K Cr. 1.7 Imp: Doing well. Clear for discharge if OK with Pulmonary and Cardiology.
[2016-10-02 09:49] VITALS: BP 112/71; TEMP 99.4
[2016-10-02] MEDS ORDERED: PT OWN MED DRAWER 7, Y5N ONE (09:53)
[2016-10-02] MEDS: NEBIVOLOL 5 MG TABLET (FP) PO SCH (09:54)
[2016-10-02] MEDS: ENOXAPARIN NA (PORCINE) 40 MG/0.4 ML DISP.SYRIN SQ SCH (09:54)
[2016-10-02] MEDS: ASPIRIN 81 MG CHEWABLE TABLETS PO SCH (09:54)
[2016-10-02] MEDS: NICOTINE 14 MG/24 HOURS TOPICAL PATCH TD SCH (09:54)
[2016-10-02] MEDS: CLOPIDOGREL BISULFATE 75 MG TABLET (FP) PO SCH (09:55)
[2016-10-02] MEDS: RANITIDINE HCL 150 MG TABLET (FP) PO SCH (09:55)
[2016-10-02] MEDS ORDERED: predniSONE 20 MG TABLET (UD) PO SCH (10:00)
--- NOTE | 2016-10-02 10:20 | PN ---
Progress Note (short form) - Note Progress Note: PULMONARY Denies shortness of breath or chest pain. No fevers or chills. Last Vital Signs Temp Pulse Resp BP Pulse Ox 99.4 F 76 20 112/71 98 10/02/16 09:48 10/02/16 09:48 10/02/16 09:48 10/02/16 09:48 10/01/16 21:00 Gen: NAD at rest Heart: RRR Lung: decreased breath sounds at the bases Abd: soft, nontender Ext: no edema CBC, BMP 10/02/16 06:30 10/02/16 06:30 Active Medications Acetaminophen (Tylenol -) 325 mg PO Q4H PRN PRN Reason: FOR PAIN LEVEL 1-5 Stop: 10/02/16 12:38 Acetaminophen (Tylenol -) 650 mg PO Q4H PRN PRN Reason: FOR PAIN LEVEL 6-10 Stop: 10/02/16 12:44 Albuterol Sulfate (Ventolin 0.083% Nebulizer Soln -) 1 amp NEB Q4H PRN PRN Reason: SHORT OF BREATH/WHEEZING Arformoterol Tartrate (Brovana (Restricted To Pulmonology/Resp) -) 1 amp NEB BID [facility] Last Admin: 10/01/16 22:39 Dose: 1 amp Aspirin (Asa -) 81 mg PO DAILY [facility] Last Admin: 10/02/16 09:54 Dose: 81 mg Clopidogrel Bisulfate (Plavix -) 75 mg PO DAILY [facility] Last Admin: 10/02/16 09:55 Dose: 75 mg Enoxaparin Sodium (Lovenox -) 40 mg SQ DAILY [facility] Last Admin: 10/02/16 09:54 Dose: 40 mg Levothyroxine Sodium 112 mcg/ (Levothyroxine Sodium 25 mcg) 137 mcg PO MoTuWeThFr@0700 [facility] Last Admin: 10/02/16 06:19 Dose: 137 mcg Levothyroxine Sodium (Synthroid -) 150 mcg PO SuSa@0700 [facility] Nebivolol (Bystolic -) 5 mg PO DAILY [facility] Last Admin: 10/02/16 09:54 Dose: 5 mg Nicotine (Nicoderm Patch -) 14 mg TD DAILY [facility] Last Admin: 10/02/16 09:54 Dose: 14 mg Ondansetron HCl (Zofran Injection) 4 mg IVPB Q6H PRN PRN Reason: NAUSEA Oxycodone HCl (Roxicodone -) 5 mg PO Q4H PRN PRN Reason: FOR PAIN LEVEL 1-5 Last Admin: 10/01/16 09:00 Dose: 5 mg Oxycodone HCl (Roxicodone -) 10 mg PO Q4H PRN PRN Reason: FOR PAIN LEVEL 6-10 Prednisone (Deltasone -) 20 mg PO DAILY [facility] Last Admin: 10/02/16 09:54 Dose: 20 mg Ranitidine HCl (Zantac -) 150 mg PO DAILY [facility] Last Admin: 10/02/16 09:55 Dose: 150 mg Rosuvastatin Calcium (Crestor -) 20 mg PO HS [facility] Last Admin: 10/01/16 21:48 Dose: 20 mg Simethicone (Mylicon -) 80 mg PO QID PRN PRN Reason: GAS A/P s/p Open Juxtarenal AAA repair, Left Femoral Bypass, Right Iliac Bypass Acute Hypercapneic Respiratory Failure resolved Shock resolved Acute on Chronic Renal Failure improving Metablolic/Lactic Acidosis resolved COPD CAD +Troponins likely Demand Ischemia Hypothyroidism - ASA, plavix - beta blockade if BP tolerates - can taper off steroids as outpt, 20mg daily x 2 more days, 10mg daily x 3 days then d/c - incentive spirometry - DVT/GI prophylaxis - can discharge home from pulmonary standpoint
[2016-10-02] MEDS: ARFORMOTEROL TARTRATE 15 MCG/2 ML VIAL NEB SCH (10:27)
[2016-10-02 12:30] VITALS: PULSE 70
--- NOTE | 2016-10-02 13:32 | DS ---
"Physical Examination Vital Signs: Vital Signs Temperature 99.4 F 10/02/16 09:48 Pulse Rate 70 10/02/16 12:28 Respiratory Rate 20 10/02/16 09:48 Blood Pressure 112/71 10/02/16 09:48 O2 Sat by Pulse Oximetry (%) 99 10/02/16 12:28 Findings/Remarks: 71 year old male with 6 cm abdominal aortic aneurysm and left iliac occlusion admitted for aneurysm repair and femoral bypass. Aneurysm was not appropriate for stent graft due to short neck and iliac disease. PMH: COPD HTN ASCVD Recently stopped smoking. Hospital course: Aneurysm surgery complicated by severely labile blood pressure and acidosis which persisted for 24 hour post-op. Stormy ICU course after surgery. Transfused banked blood and cell saver. Extubated POD 1 and diuresed over next 3 days. Resumed POD 3. Started on Solumedrol and then Prednisone for pulmonary disease. Home on Prednisone taper and Nicotine patch. Constitutional: Yes: No Distress Eyes: Yes: EOM Intact Neck: Yes: Supple Cardiovascular: Yes: Regular Rate and Rhythm Respiratory: Yes: Regular, CTA Bilaterally Gastrointestinal: Yes: Soft Edema: LLE: 1+, RLE: 1+ Peripheral Pulses WNL: Yes Wound/Incision: Yes: Clean/Dry, Well Approximated, [place] Intact Labs: CBC, BMP 10/02/16 06:30 10/02/16 06:30 Discharge Summary Reason For Visit: AAA Current Active Problems HELLEN (acute kidney injury) (Acute) Abdominal aortic aneurysm (Acute) Acute hypercapnic respiratory failure (Acute) COPD (chronic obstructive pulmonary disease) (Acute) Chronic kidney disease, stage 2 (mild) (Acute) Coronary artery disease (Acute) Essential (primary) hypertension (Acute) Hyperkalemia (Acute) Hyperlipidemia LDL goal <100 (Acute) Hypothyroidism (Acute) Labile blood pressure (Acute) Metabolic acidemia (Acute) S/P aortic aneurysm repair (Acute) Status post insertion of drug eluting coronary artery stent (Acute) Condition: Fair - Instructions Diet, Activity, Other Instructions: Dr. Bello's Discharge Instructions Dear Pancho, Post Operative Instructions Physical activity Resume your normal everyday activity as tolerated no heavy lifting or exercise until seen by your surgeon. You may walk unlimited amounts of and climb stairs. No driving. Wound care Your jeff will be removed in the office in 7 days. Keep groin covered with clean, dry gauze. Diet Eat healthy, high-fiber foods. Drink 6 to 8 glasses of liquid each day. Pain management You may take Tylenol or acetaminophen or Ibuprofen (for example, Motrin, Advil etc.) Any pain prescription medication ordered should be taken as prescribed for moderate to severe pain. [place] [employer] checked prior to escribe of narcotic pain management. This report was requested by: Conrad Warner | Reference #: [id number] Call Dr. Bello for any of the following: Severe pain not relieved by medication Fever of 101 or higher Excessive bleeding or drainage on dressing Inability to urinate Call the office for a post operative appointment in 7 days. Referrals: Luke Ace MD [Staff Physician] - Alvarez Bello MD [Staff Physician] - 1 Week Disposition: HOME - Home Medications Comprehensive Discharge Medication List: Ambulatory Orders Clopidogrel Bisulfate [Plavix -] 75 mg PO DAILY #30 tablet 04/07/12 Levothyroxine [Synthroid -] 137 mcg PO ASDIR #0 tablet 04/07/12 Levothyroxine [Synthroid -] 150 mcg PO DAILY #30 tablet 04/07/12 Nebivolol HCl [Bystolic] 5 mg NR DAILY #30 tablet 04/07/12 Lansoprazole [Prevacid] 30 mg PO PRN PRN 04/22/12 Rosuvastatin Calcium [Crestor] 20 mg PO DAILY 04/22/12 Aspirin [ASA -] 81 mg PO DAILY 09/17/16 Nicotine Patch [Nicoderm Patch -] 1 patch TD DAILY #30 patch 10/02/16 Prednisone 10 mg PO BID #20 tablet 10/02/16"
--- NOTE | 2016-10-02 14:40 | PN ---
Progress Note, Physician History of Present Illness: Pt seen and examined at bedside. He is awake and alert. He says he feels much better today. - Current Medication List Current Medications: Active Medications Albuterol Sulfate (Ventolin 0.083% Nebulizer Soln -) 1 amp NEB Q4H PRN PRN Reason: SHORT OF BREATH/WHEEZING Arformoterol Tartrate (Brovana (Restricted To Pulmonology/Resp) -) 1 amp NEB BID [facility] Last Admin: 10/02/16 10:27 Dose: 1 amp Aspirin (Asa -) 81 mg PO DAILY [facility] Last Admin: 10/02/16 09:54 Dose: 81 mg Clopidogrel Bisulfate (Plavix -) 75 mg PO DAILY [facility] Last Admin: 10/02/16 09:55 Dose: 75 mg Enoxaparin Sodium (Lovenox -) 40 mg SQ DAILY [facility] Last Admin: 10/02/16 09:54 Dose: 40 mg Levothyroxine Sodium 112 mcg/ (Levothyroxine Sodium 25 mcg) 137 mcg PO MoTuWeThFr@0700 [facility] Last Admin: 10/02/16 06:19 Dose: 137 mcg Levothyroxine Sodium (Synthroid -) 150 mcg PO SuSa@0700 [facility] Nebivolol (Bystolic -) 5 mg PO DAILY [facility] Last Admin: 10/02/16 09:54 Dose: 5 mg Nicotine (Nicoderm Patch -) 14 mg TD DAILY [facility] Last Admin: 10/02/16 09:54 Dose: 14 mg Ondansetron HCl (Zofran Injection) 4 mg IVPB Q6H PRN PRN Reason: NAUSEA Oxycodone HCl (Roxicodone -) 5 mg PO Q4H PRN PRN Reason: FOR PAIN LEVEL 1-5 Last Admin: 10/01/16 09:00 Dose: 5 mg Oxycodone HCl (Roxicodone -) 10 mg PO Q4H PRN PRN Reason: FOR PAIN LEVEL 6-10 Prednisone (Deltasone -) 20 mg PO DAILY [facility] Last Admin: 10/02/16 09:54 Dose: 20 mg Ranitidine HCl (Zantac -) 150 mg PO DAILY [facility] Last Admin: 10/02/16 09:55 Dose: 150 mg Rosuvastatin Calcium (Crestor -) 20 mg PO HS [facility] Last Admin: 10/01/16 21:48 Dose: 20 mg Simethicone (Mylicon -) 80 mg PO QID PRN PRN Reason: GAS - Objective Vital Signs: Vital Signs Temperature 99.4 F 10/02/16 09:48 Pulse Rate 70 10/02/16 12:28 Respiratory Rate 20 10/02/16 09:48 Blood Pressure 112/71 10/02/16 09:48 O2 Sat by Pulse Oximetry (%) 99 10/02/16 12:28 Constitutional: Yes: Calm Eyes: Yes: Conjunctiva Clear HENT: Yes: Atraumatic Neck: Yes: Supple Cardiovascular: Yes: S1, S2 Respiratory: Yes: CTA Bilaterally Gastrointestinal: Yes: Soft Genitourinary: Yes: WNL Musculoskeletal: Yes: WNL Edema: LLE: Trace, RLE: Trace Wound/Incision: Yes: Dressing Dry and Intact Neurological: Yes: Oriented Psychiatric: Yes: Oriented Labs: CBC, BMP 10/02/16 06:30 10/02/16 06:30 INR, PTT INR 1.33 (0.82-1.09) H 09/29/16 05:20 Problem List - Problems (1) Abdominal aortic aneurysm Code(s): I71.4 - ABDOMINAL AORTIC ANEURYSM, WITHOUT RUPTURE Qualifiers: Presence of rupture: without rupture Qualified Code(s): I71.4 - Abdominal aortic aneurysm, without rupture (2) Acute hypercapnic respiratory failure Code(s): J96.02 - ACUTE RESPIRATORY FAILURE WITH HYPERCAPNIA (3) COPD (chronic obstructive pulmonary disease) Code(s): J44.9 - CHRONIC OBSTRUCTIVE PULMONARY DISEASE, UNSPECIFIED Qualifiers : COPD type: unspecified COPD Qualified Code(s): J44.9 - Chronic obstructive pulmonary disease, unspecified (4) Chronic kidney disease, stage 2 (mild) Code(s): N18.2 - CHRONIC KIDNEY DISEASE, STAGE 2 (MILD) (5) Coronary artery disease Code(s): I25.10 - ATHSCL HEART DISEASE OF [place] CORONARY ARTERY W/O ANG PCTRS Qualifiers: Coronary Disease-Associated Artery/Lesion type: [place] artery [place] vs. transplanted heart: [place] heart Associated angina: without angina Qualified Code(s): I25.10 - Atherosclerotic heart disease of [place] coronary artery without angina pectoris (6) HELLEN (acute kidney injury) Code(s): N17.9 - ACUTE KIDNEY FAILURE, UNSPECIFIED (7) Hyperkalemia Code(s): E87.5 - HYPERKALEMIA (8) Metabolic acidemia Code(s): E87.2 - ACIDOSIS Assessment/Plan Current Medications Generic Name Dose Route Start Last Admin Trade Name Freq PRN Reason Stop Dose Admin Albuterol Sulfate 1 amp 09/30/16 12:11 Ventolin 0.083% Nebulizer Soln - NEB Q4H PRN SHORT OF BREATH/WHEEZING Arformoterol Tartrate 1 amp 09/30/16 22:00 10/02/16 10:27 Brovana (Restricted To Pulmonology/Resp) - NEB 1 amp BID [facility] Administration Aspirin 81 mg 10/01/16 10:00 10/02/16 09:54 Asa - PO 81 mg DAILY [facility] Administration Clopidogrel Bisulfate 75 mg 10/01/16 10:00 10/02/16 09:55 Plavix - PO 75 mg DAILY [facility] Administration Enoxaparin Sodium 40 mg 10/01/16 10:00 10/02/16 09:54 Lovenox - SQ 40 mg DAILY [facility] Administration Levothyroxine Sodium 112 mcg/ 137 mcg 10/01/16 07:00 10/02/16 06:19 Levothyroxine Sodium 25 mcg PO 137 mcg MoTuWeThFr@0700 [facility] Administration Levothyroxine Sodium 150 mcg 10/06/16 07:00 Synthroid - PO SuSa@0700 [facility] Nebivolol 5 mg 10/01/16 10:00 10/02/16 09:54 Bystolic - PO 5 mg DAILY [facility] Administration Nicotine 14 mg 10/01/16 10:00 10/02/16 09:54 Nicoderm Patch - TD 14 mg DAILY [facility] Administration Ondansetron HCl 4 mg 09/30/16 12:11 Zofran Injection IVPB Q6H PRN NAUSEA Oxycodone HCl 5 mg 09/30/16 12:11 10/01/16 09:00 Roxicodone - PO 5 mg Q4H PRN Administration FOR PAIN LEVEL 1-5 Oxycodone HCl 10 mg 09/30/16 12:11 Roxicodone - PO Q4H PRN FOR PAIN LEVEL 6-10 Prednisone 20 mg 10/02/16 10:00 10/02/16 09:54 Deltasone - PO 20 mg DAILY [facility] Administration Ranitidine HCl 150 mg 10/01/16 10:00 10/02/16 09:55 Zantac - PO 150 mg DAILY [facility] Administration Rosuvastatin Calcium 20 mg 09/30/16 22:00 10/01/16 21:48 Crestor - PO 20 mg HS [facility] Administration Simethicone 80 mg 09/30/16 12:11 Mylicon - PO QID PRN GAS Impression 1. HELLEN 2. hyperkalemia 3. respiratory failure requiring intubation 4. metabolic and respiratory acidosis 5. labile HTN - pt is now hypotensive and on levophed 6. s/p AAA repair 7. hyperlipidemia 8. CAD Plan - renal function stabilizing however will need outpt follow up - will not give any lasix today - will need outpt renal workup - should get a pheochromocytoma workup, should get metanephrines - will follow closely Dr Woods
--- NOTE | 2016-10-02 16:51 | PN ---
Progress Note, Physician Chief Complaint: Events noted Not in distress History of Present Illness: Patient was seen and examined. Awake and alert. Sitting in chair. Chart was reviewed Post op AAA repair, post peripheral bypass - Objective Vital Signs: Vital Signs Temperature 99.4 F 10/02/16 09:48 Pulse Rate 70 10/02/16 12:28 Respiratory Rate 20 10/02/16 09:48 Blood Pressure 112/71 10/02/16 09:48 O2 Sat by Pulse Oximetry (%) 99 10/02/16 12:28 Neck: Yes: Supple Cardiovascular: Yes: Regular Rate and Rhythm, S1, S2 Respiratory: Yes: CTA Bilaterally Gastrointestinal: Yes: Normal Bowel Sounds, Soft. No: Tenderness Edema: No Wound/Incision: Yes: Sutures Intact, Other (slight discharge at the surgical site wetting the dressing) Labs: CBC, BMP 10/02/16 06:30 10/02/16 06:30 Problem List - Problems (1) HELLEN (acute kidney injury) Code(s): N17.9 - ACUTE KIDNEY FAILURE, UNSPECIFIED (2) Abdominal aortic aneurysm Code(s): I71.4 - ABDOMINAL AORTIC ANEURYSM, WITHOUT RUPTURE Qualifiers: Presence of rupture: without rupture Qualified Code(s): I71.4 - Abdominal aortic aneurysm, without rupture (3) Acute hypercapnic respiratory failure Code(s): J96.02 - ACUTE RESPIRATORY FAILURE WITH HYPERCAPNIA (4) COPD (chronic obstructive pulmonary disease) Code(s): J44.9 - CHRONIC OBSTRUCTIVE PULMONARY DISEASE, UNSPECIFIED Qualifiers : COPD type: unspecified COPD Qualified Code(s): J44.9 - Chronic obstructive pulmonary disease, unspecified (5) Chronic kidney disease, stage 2 (mild) Code(s): N18.2 - CHRONIC KIDNEY DISEASE, STAGE 2 (MILD) (6) Coronary artery disease Code(s): I25.10 - ATHSCL HEART DISEASE OF [place] CORONARY ARTERY W/O ANG PCTRS Qualifiers: Coronary Disease-Associated Artery/Lesion type: [place] artery [place] vs. transplanted heart: [place] heart Associated angina: without angina Qualified Code(s): I25.10 - Atherosclerotic heart disease of [place] coronary artery without angina pectoris (7) Essential (primary) hypertension Code(s): I10 - ESSENTIAL (PRIMARY) HYPERTENSION (8) S/P aortic aneurysm repair Code(s): Z98.890 - OTHER SPECIFIED POSTPROCEDURAL STATES Z86.79 - PERSONAL HISTORY OF OTHER DISEASES OF THE CIRCULATORY SYSTEM (9) Status post insertion of drug eluting coronary artery stent Code(s): Z95.5 - PRESENCE OF CORONARY ANGIOPLASTY IMPLANT AND GRAFT Assessment/Plan 1. Acute hypercapneic respiratory failure post-op - currently stable 2. Post open repair of 6 cm juxtarenal abdominal aortic aneurysm, left femoral bypass and right iliac bypass. 3. CAD s/p NAIF LAD - demand ischemia 4. COPD 5. Acute on CKD with improving lactic acidosis 6. Labile HTN 7. Hyperlipidemia 8. Hypothyroidism 9. Thrombocytopenia PLAN: 1. Continue post op management - discharge home today 2. Diuresis as needed and continue cardiac medications including Crestor and Bystolic as tolerated 3. ASA and Plavix. 4. GI and DVT prophylaxis Further plans are to follow Jarvis Hannon MD
[2016-10-06] MEDS ORDERED: LEVOTHYROXINE NA 150 MCG TABLET PO SCH (07:00)
== END 2016-10-02 15:33 | disposition home or self-care (01) | DRG 268 ==
LOC: JSAMEDAYSX 05:40 → JICU 18:33 → J8W 09-30 14:35
PROVIDERS: ADMIT Surgery; ATTEND Surgery
PROC: 04C00ZZ Extirpation of Matter from Abdominal Aorta, Open Approach (ICD-10-PCS; 2016-09-26)
PROC: 04100JJ Bypass Abdominal Aorta to Left Femoral Artery with Synthetic Substitute, Open Approach (ICD-10-PCS; 2016-09-26)
PROC: 04CL0ZZ Extirpation of Matter from Left Femoral Artery, Open Approach (ICD-10-PCS; 2016-09-26)
PROC: 06Q Lower Veins, Repair (ICD-10-PCS; 2016-09-26)
PROC: 041 Lower Arteries, Bypass (ICD-10-PCS; 2016-09-26)
PROC: 3E0M05Z Introduction of Adhesion Barrier into Peritoneal Cavity, Open Approach (ICD-10-PCS; 2016-09-26)
PROC: 3E05017 Introduction of Other Thrombolytic into Peripheral Artery, Open Approach (ICD-10-PCS; 2016-09-26)
PROC: 30233N1 Transfusion of Nonautologous Red Blood Cells into Peripheral Vein, Percutaneous Approach (ICD-10-PCS; 2016-09-26)
PROC: 03HY32Z Insertion of Monitoring Device into Upper Artery, Percutaneous Approach (ICD-10-PCS; 2016-09-26)
PROC: 4A133B1 Monitoring of Arterial Pressure, Peripheral, Percutaneous Approach (ICD-10-PCS; 2016-09-26)
PROC: 4A133J1 Monitoring of Arterial Pulse, Peripheral, Percutaneous Approach (ICD-10-PCS; 2016-09-26)
PROC: 05HM33Z Insertion of Infusion Device into Right Internal Jugular Vein, Percutaneous Approach (ICD-10-PCS; 2016-09-26)
PROC: B543ZZA Ultrasonography of Right Jugular Veins, Guidance (ICD-10-PCS; 2016-09-26)
PROC: 04U00JZ Supplement Abdominal Aorta with Synthetic Substitute, Open Approach (ICD-10-PCS; principal; 2016-09-26 08:00)
DX: I71.4 Abdominal aortic aneurysm, without rupture (principal); J95.821 Acute postprocedural respiratory failure; R57.8 Other shock; N17.0 Acute kidney failure with tubular necrosis; S35.514A Injury of right iliac vein, initial encounter; I74.5 Embolism and thrombosis of iliac artery; E87.4 Mixed disorder of acid-base balance; J98.11 Atelectasis; J90 Pleural effusion, not elsewhere classified; I24.8 Other forms of acute ischemic heart disease; I97.51 Accidental puncture and laceration of a circulatory system organ or structure during a circulatory system procedure; N18.2 Chronic kidney disease, stage 2 (mild); J44.9 Chronic obstructive pulmonary disease, unspecified; Z72.0 Tobacco use; I12.9 Hypertensive chronic kidney disease with stage 1 through stage 4 chronic kidney disease, or unspecified chronic kidney disease; Z95.5 Presence of coronary angioplasty implant and graft; Y83.8 Other surgical procedures as the cause of abnormal reaction of the patient, or of later complication, without mention of misadventure at the time of the procedure; Y82.8 Other medical devices associated with adverse incidents; Y92.238 Other place in hospital as the place of occurrence of the external cause; I25.119 Atherosclerotic heart disease of native coronary artery with unspecified angina pectoris; E03.9 Hypothyroidism, unspecified; D69.6 Thrombocytopenia, unspecified; I77.1 Stricture of artery; Y65.8 Other specified misadventures during surgical and medical care
CPT/HCPCS: 36415; 36430; 36600; 71010-TC; 80048; 80053; 80076; 81003; 81015; 82550; 82553; 82803; 83605; 83735; 84100; 84484; 85025; 85027; 85610; 88304-TC; 93005; 93010; 93306-TC; 94002; 94010; 94640; 94660; 94760; 97116-GP; 97161; J1644; P9038; P9058

== ENCOUNTER 2021-05-20 11:11 | Emergency (ER) | payer OTHER ==
[2021-05-20 11:54] VITALS: BP 146/89; PULSE 60; TEMP 98.9; BMI 31.1
== END 2021-05-20 15:04 | disposition home or self-care (01) ==
LOC: FER 11:11
DX: S86.911A Strain of unspecified muscle(s) and tendon(s) at lower leg level, right leg, initial encounter (principal); X50.0XXA Overexertion from strenuous movement or load, initial encounter; V49.40XA Driver injured in collision with unspecified motor vehicles in traffic accident, initial encounter
CPT/HCPCS: 71046-TC-FY; 72070-TC-FY; 72100-TC-FY; 73610-TC-RT-FY; 73630-TC-RT-FY; 93005; 93971-TC; 99285-25

== ENCOUNTER 2022-05-24 04:01 | Inpatient (IN) | payer OTHER ==
[2022-05-22 13:15] VITALS: BMI 31.7
[2022-05-24] MEDS ORDERED: MIDAZOLAM HCL 2 MG/2 ML SINGLE DOSE VIAL ONE (06:55)
[2022-05-24] MEDS ORDERED: ROCURONIUM BROMIDE 50 MG/5 ML SYRINGE ONE ×2 (06:55→10:43)
[2022-05-24] MEDS ORDERED: PROPOFOL 20 ML ONE (06:55)
[2022-05-24] MEDS ORDERED: LIDOCAINE HCL 2% 100 MG/5 ML DISP.SYRIN ONE (07:00)
[2022-05-24] MEDS ORDERED: SEVOFLURANE 250 ML BTL ONE (07:13)
[2022-05-24] MEDS ORDERED: BUPIVACAINE HCL/PF 0.5% (5MG/ML) 10 ML VIAL ONE (07:54)
[2022-05-24] MEDS ORDERED: BUPIVACAINE HCL/PF 0.25% (2.5MG/ML) 10 ML VIAL ONE (07:57)
[2022-05-24] MEDS ORDERED: oxyCODONE HCL 5 MG TABLET PO PRN (08:02)
[2022-05-24] MEDS ORDERED: ONDANSETRON 4 MG/2 ML VIAL IVPUSH PRN (08:02)
[2022-05-24] MEDS ORDERED: ACETAMINOPHEN 325 MG TABLET (FP) PO PRN (08:02)
[2022-05-24] MEDS ORDERED: LACTATED RINGERS SOLUTION 1,000 ML IV SCH (08:15)
[2022-05-24 08:32] LABS: ARTERIAL BLD GAS O2 SATURATION 95.6 % (95-98); ARTERIAL BLOOD GAS BASE EXCESS -1.3 mmol/L (-2-2); ARTERIAL BLOOD GAS PO2 78.6 mmHg (80-100); ARTERIAL BLOOD GAS pH 7.393 (7.350-7.450)
[2022-05-24 08:33] LABS: ALLENS TEST POSITIVE
[2022-05-24] MEDS ORDERED: ceFAZolin SODIUM 1 GM VIAL IVPB ONE (08:45)
[2022-05-24] MEDS ORDERED: HYDROmorphone HCl 2 MG/ML VIAL ONE (08:52)
[2022-05-24] MEDS ORDERED: DEXAMETHASONE SOD PHOSPHATE 4 MG/1 ML VIAL ONE (09:00)
[2022-05-24] MEDS ORDERED: ONDANSETRON 4 MG/2 ML VIAL ONE (09:00)
[2022-05-24] MEDS ORDERED: ACETAMINOPHEN INJECTION 100 ML IVPB ONE (09:16)
[2022-05-24] MEDS ORDERED: INDOCYANINE GREEN 25 MG/10 ML VIAL IVPUSH ONE (09:38)
[2022-05-24] MEDS ORDERED: GLYCOPYRROLATE 0.2 MG/1 ML VIAL ONE ×2 (11:36)
[2022-05-24] MEDS ORDERED: NEOSTIGMINE METHYLSULFATE 0.5 MG/1 ML - 10 ML MDV ONE (11:36)
[2022-05-24] MEDS ORDERED: HYDROmorphone *PCA* 10MG/50ML DISP.SYRIN PCA SCH (12:45)
[2022-05-24] MEDS ORDERED: SODIUM CHLORIDE 1,000 ML IV SCH ×2 (13:00→17:36)
[2022-05-24] MEDS ORDERED: LEVOTHYROXINE NA 150 MCG TABLET PO SCH (13:00)
[2022-05-24 13:58] LABS: BASO % 0.2 % (0-2.0); EOS % 0.2 % (0-4.5); HEMATOCRIT 47.1 % (35.4-49); HEMOGLOBIN 15.2 GM/dL (11.7-16.9); LYMPH % 4.7 % (8-40); MCH 29.6 pg (25.7-33.7); MCHC 32.3 g/dl (32.0-35.9); MEAN CELL VOLUME 91.6 fl (80-96); MEAN PLT VOLUME 8.4 fl (7.5-11.1); MONO % 2.7 % (3.8-10.2); NEUT % 92.2 % (42.8-82.8); PLATELET COUNT 124 10^3/uL (134-434); RBC 5.15 M/mm3 (4.00-5.60); RDW 14.6 % (11.9-15.9); WHITE BLOOD COUNT 10.5 K/mm3 (4.0-10.0)
[2022-05-24 14:26] LABS: ANISOCYTOSIS 1+; MACROCYTOSIS 0; PLATELET ESTIMATE DECREASED
[2022-05-24] MEDS: DOCUSATE SODIUM 100 MG CAPSULE (FP) PO SCH ×2 (15:17→21:21)
[2022-05-24] MEDS: ACETAMINOPHEN 1000 MG/100 ML BAG IVPB SCH ×3 (15:58→21:22)
[2022-05-24] MEDS: INSULIN SLIDING SCALE (NOVOLOG) 1 VIAL SQ SCH ×2 (16:23→21:22)
[2022-05-24 18:51] LABS: BLOOD UREA NITROGEN 26.5 mg/dL (7-18); CALCIUM 8.7 mg/dL (8.5-10.1)
[2022-05-24 18:55] LABS: CREATININE 2.2 mg/dL (0.55-1.3)
[2022-05-24] MEDS: ALBUTEROL SO4 2.5/IPRATROPIUM 0.5 INH SOL 3 ML VIAL.NEB. NEB SCH ×3 (20:05→20:18)
[2022-05-24] MEDS ORDERED: ALBUTEROL SO4 2.5/IPRATROPIUM 0.5 INH SOL 3 ML VIAL.NEB. NEB SCH (20:07)
[2022-05-24] MEDS: MUPIROCIN 2% TOPICAL OINTMENT FOR DECOLONIZATION NS SCH (21:20)
[2022-05-24] MEDS: ROSUVASTATIN CA 20 MG TABLET PO SCH (21:21)
[2022-05-24] MEDS: ASPIRIN COATED 81 MG TABLET.EC PO SCH (21:21)
[2022-05-24] MEDS: CHLORHEXIDINE GLUCONATE 4% CLEANSER FOR DECOLONIZATION TP SCH (21:22)
[2022-05-25] MEDS: ACETAMINOPHEN 1000 MG/100 ML BAG IVPB SCH (03:45)
[2022-05-25] MEDS: LEVOTHYROXINE 112 MCG, LEVOTHYROXINE 25 MCG PO SCH (06:00)
[2022-05-25] MEDS: INSULIN SLIDING SCALE (NOVOLOG) 1 VIAL SQ SCH ×4 (06:27→21:08)
[2022-05-25] MEDS ORDERED: oxyCODONE HCL 5 MG TABLET PO PRN (06:35)
[2022-05-25] MEDS ORDERED: traMADol HCL 50 MG TABLET PO PRN (06:35)
[2022-05-25] MEDS: DOCUSATE SODIUM 100 MG CAPSULE (FP) PO SCH ×3 (06:50→21:07)
[2022-05-25 07:27] LABS: BASO % 0.3 % (0-2.0); EOS % 0.1 % (0-4.5); HEMATOCRIT 43.4 % (35.4-49); HEMOGLOBIN 14.2 GM/dL (11.7-16.9); LYMPH % 10.1 % (8-40); MCH 30.2 pg (25.7-33.7); MCHC 32.8 g/dl (32.0-35.9); MEAN CELL VOLUME 91.9 fl (80-96); MEAN PLT VOLUME 8.8 fl (7.5-11.1); MONO % 10.9 % (3.8-10.2); NEUT % 78.6 % (42.8-82.8); PLATELET COUNT 129 10^3/uL (134-434); RBC 4.73 M/mm3 (4.00-5.60); RDW 14.4 % (11.9-15.9); WHITE BLOOD COUNT 10.3 K/mm3 (4.0-10.0)
[2022-05-25] MEDS: HEPARIN NA (PORCINE) 5,000 UNITS/ML 1ML VIAL SQ SCH ×3 (07:30→21:07)
[2022-05-25] MEDS: ACETAMINOPHEN 500 MG TABLET (FP) PO SCH ×3 (07:30→21:54)
[2022-05-25 07:51] LABS: BLOOD UREA NITROGEN 25.6 mg/dL (7-18); CALCIUM 8.2 mg/dL (8.5-10.1)
[2022-05-25 07:55] LABS: CREATININE 1.9 mg/dL (0.55-1.3)
[2022-05-25] MEDS: ALBUTEROL SO4 2.5/IPRATROPIUM 0.5 INH SOL 3 ML VIAL.NEB. NEB SCH ×4 (09:00→20:20)
[2022-05-25] MEDS: NEBIVOLOL 5 MG TABLET (FP) PO SCH (09:29)
[2022-05-25] MEDS: MUPIROCIN 2% TOPICAL OINTMENT FOR DECOLONIZATION NS SCH ×2 (09:36→21:07)
[2022-05-25] MEDS ORDERED: HEPARIN NA (PORCINE) 5,000 UNITS/ML 1ML VIAL SQ SCH (10:00)
[2022-05-25] MEDS ORDERED: ASPIRIN COATED 81 MG TABLET.EC PO SCH (10:00)
[2022-05-25] MEDS: ROSUVASTATIN CA 20 MG TABLET PO SCH (21:07)
[2022-05-25] MEDS: ASPIRIN COATED 81 MG TABLET.EC PO SCH (21:07)
[2022-05-25] MEDS: CHLORHEXIDINE GLUCONATE 4% CLEANSER FOR DECOLONIZATION TP SCH (21:08)
[2022-05-26] MEDS: DOCUSATE SODIUM 100 MG CAPSULE (FP) PO SCH (06:19)
[2022-05-26] MEDS: INSULIN SLIDING SCALE (NOVOLOG) 1 VIAL SQ SCH (06:19)
[2022-05-26] MEDS: LEVOTHYROXINE 112 MCG, LEVOTHYROXINE 25 MCG PO SCH (06:19)
[2022-05-26] MEDS: HEPARIN NA (PORCINE) 5,000 UNITS/ML 1ML VIAL SQ SCH (06:19)
[2022-05-26] MEDS: ACETAMINOPHEN 500 MG TABLET (FP) PO SCH (06:19)
[2022-05-26 06:39] VITALS: PULSE 88; RESP 25
[2022-05-26] MEDS: ALBUTEROL SO4 2.5/IPRATROPIUM 0.5 INH SOL 3 ML VIAL.NEB. NEB SCH (07:40)
[2022-05-26 08:25] VITALS: BP 132/85
[2022-05-26 08:47] VITALS: TEMP 97.9
[2022-05-26] MEDS: NEBIVOLOL 5 MG TABLET (FP) PO SCH (09:45)
[2022-05-26] MEDS: MUPIROCIN 2% TOPICAL OINTMENT FOR DECOLONIZATION NS SCH (09:45)
[2022-05-26] MEDS ORDERED: CLOPIDOGREL BISULFATE 75 MG TABLET (FP) PO SCH (10:00)
== END 2022-05-26 10:42 | disposition home or self-care (01) | DRG 165 ==
LOC: J2C 04:01 → EDSTATUS 07:30 → JICU 15:01
PROVIDERS: ADMIT Student in an Organized Health Care Education/Training Program; ATTEND Internal Medicine Pulmonary Disease
PROC: 07T74ZZ Resection of Thorax Lymphatic, Percutaneous Endoscopic Approach (ICD-10-PCS; 2022-05-24)
PROC: 0BB Respiratory System, Excision (ICD-10-PCS; 2022-05-24)
PROC: 8E0W4CZ Robotic Assisted Procedure of Trunk Region, Percutaneous Endoscopic Approach (ICD-10-PCS; 2022-05-24)
PROC: 0BTC4ZZ Resection of Right Upper Lung Lobe, Percutaneous Endoscopic Approach (ICD-10-PCS; principal; 2022-05-24 08:00)
DX: C34.12 Malignant neoplasm of upper lobe, left bronchus or lung (principal); I13.10 Hypertensive heart and chronic kidney disease without heart failure, with stage 1 through stage 4 chronic kidney disease, or unspecified chronic kidney disease; E03.9 Hypothyroidism, unspecified; I25.10 Atherosclerotic heart disease of native coronary artery without angina pectoris; J44.9 Chronic obstructive pulmonary disease, unspecified; R73.03 Prediabetes; E78.2 Mixed hyperlipidemia; N18.2 Chronic kidney disease, stage 2 (mild)
CPT/HCPCS: 36415; 36430; 36600; 71045-TC-FY; 80048; 82803; 82962; 84484; 85025; 86850; 86900; 86901; 86922; 88307-TC; 88331-TC; 88341-TC; 93005; 93010; 94640; 94760; 97116-GP; 97162-GP; J1644

== ENCOUNTER 2022-06-05 18:26 | Emergency (ER) | payer OTHER ==
[2022-06-05] MEDS ORDERED: LIDOCAINE HCL 2% JELLY 10 ML CARTRIDGE UR ONE (18:51)
[2022-06-05] MEDS ORDERED: LIDOCAINE HCL 2% JELLY 10 ML CARTRIDGE ONE (18:52)
[2022-06-05 18:59] VITALS: BP 119/76; PULSE 84; RESP 18; TEMP 97.8; BMI 4563.4
[2022-06-05 19:37] LABS: HEMATOCRIT 42.4 % (35.4-49); HEMOGLOBIN 14.7 G/dL (11.7-16.9); MCH 31.3 pg (25.7-33.7); MCHC 34.7 g/dl (32.0-35.9); MEAN CELL VOLUME 90.3 fl (80-96); MEAN PLT VOLUME 8.5 fl (7.5-11.1); PLATELET COUNT 171.2 10^3/uL (134-434); RDW 13.9 % (11.9-15.9); WHITE BLOOD COUNT 16.3 10^3/uL (4.0-10.8)
[2022-06-05 19:52] LABS: EPITHELIAL CELLS RARE /hpf
[2022-06-05 19:54] LABS: ALBUMIN 3.2 g/dl (3.4-5.0); BILIRUBIN,TOTAL 0.9 mg/dl (0.2-1); CALCIUM 8.4 mg/dl (8.5-10); CREATININE 1.9 mg/dl (0.55-1.3)
[2022-06-05] MEDS ORDERED: CIPROFLOXACIN 500 MG TABLET (RESTRICTED TO ID) PO ONE (21:37)
[2022-06-05] MEDS ORDERED: TAMSULOSIN HCL 0.4 MG CAP PO ONE (21:38)
[2022-06-05] MEDS ORDERED: CIPROFLOXACIN 250 MG TABLET (RESTRICTED TO ID) PO ONE (21:39)
[2022-06-05] MEDS ORDERED: TAMSULOSIN HCL 0.4 MG CAP ONE (21:39)
== END 2022-06-05 22:00 | disposition home or self-care (01) ==
LOC: FER 18:26
DX: R33.9 Retention of urine, unspecified (principal)
CPT/HCPCS: 36415; 76856-TC; 80053; 81003; 81015; 85027; 87086; 87186; 99284-25